=== PATIENT | male | born 1955 | race Caucasian/White ===

== ENCOUNTER 2020-04-20 07:20 | Outpatient (REF) | payer OTHER, SELFPAY ==
[2020-04-20 11:29] LABS: Hematocrit 50.7 % (42-52); Hemoglobin 17.1 g/dl (14.0-18.0); Mean Corpuscular HGB Conc 33.7 g/dl (31.0-36.0); Mean Corpuscular Hemoglobin 28.8 pg (27.0-33.0); Mean Corpuscular Volume 85.5 fL (80-98); Mean Platelet Volume 11.3 fL (9.4-12.4); Platelet Count 152 X10*3/uL (160-400); Red Blood Count 5.93 X10*6/uL (4.60-5.80); Red Cell Distribution Width 13.2 % (11.0-16.0); White Blood Count 6.5 X10*3/uL (4.8-10.8)
[2020-04-20 12:17] LABS: Prostate Specific Antigen 0.42 ng/mL (<0.05-4.0)
[2020-04-26 01:56] LABS: Testosterone, Total 350 ng/dL (250-1100)
== END 2020-04-20 07:21 | disposition home or self-care (01) ==
LOC: HO.HMGCLDS 07:20
PROVIDERS: PCP Internal Medicine; Visit Provider Urology
DX: R79.89 Other specified abnormal findings of blood chemistry (principal)
CPT/HCPCS: 36415; 84153; 84403; 85027

== ENCOUNTER → 2020-05-03 12:40 | Outpatient (BNVA) | payer OTHER, SELFPAY | PROVIDERS: PCP Internal Medicine; Referring Provider Orthopaedic Surgery; Visit Provider Urology | DX: Z76.89 Persons encountering health services in other specified circumstances (principal) ==

== ENCOUNTER 2020-06-05 07:22 | Outpatient (REF) | payer OTHER, SELFPAY ==
[2020-06-05 11:55] LABS: Alanine Aminotransferase 40 U/L (0-40); Anion Gap 16 (12-20); Aspartate Amino Transferase 26 U/L (5-37); Blood Urea Nitrogen 21 mg/dL (9-16); Calcium 9.5 mg/dL (8.4-10.2); Carbon Dioxide 23 mmol/L (22-29); Chloride 105 mmol/L (96-108); Cholesterol 149 mg/dL; Estimated Glomerular Filt Rate > 60; Glucose Fasting 172 mg/dL (60-99); HDL Cholesterol 37 mg/dL; LDL Cholesterol Calculated 71 mg/dl; Potassium 4.5 mmol/l (3.3-5.1); Sodium 139 mmol/L (135-145); Triglycerides 205 mg/dL
[2020-06-05 12:07] LABS: Creatinine Urine 77.11 mg/dL; Microalbumin Urine < 5.0 mg/L
== END 2020-06-05 07:23 | disposition home or self-care (01) ==
LOC: HO.HMGCLDS 07:22
PROVIDERS: PCP Internal Medicine; Visit Provider Internal Medicine
DX: I10 Essential (primary) hypertension (principal); E11.65 Type 2 diabetes mellitus with hyperglycemia; E78.2 Mixed hyperlipidemia
CPT/HCPCS: 80048; 80061; 82043; 84450; 84460

== ENCOUNTER 2020-10-06 07:41 | Outpatient (REF) | payer OTHER, SELFPAY ==
[2020-10-06 11:54] LABS: Estimated Average Glucose 154 mg/dL
[2020-10-06 12:05] LABS: Creatinine Urine 61.81 mg/dL; Microalbumin Urine < 5.0 mg/L
[2020-10-06 12:28] LABS: Alanine Aminotransferase 32 U/L (0-40); Anion Gap 17 (12-20); Aspartate Amino Transferase 24 U/L (5-37); Blood Urea Nitrogen 19 mg/dL (9-16); Calcium 9.5 mg/dL (8.4-10.2); Carbon Dioxide 22 mmol/L (22-29); Chloride 104 mmol/L (96-108); Cholesterol 127 mg/dL; Estimated Glomerular Filt Rate > 60; Glucose Fasting 189 mg/dL (60-99); HDL Cholesterol 30 mg/dL; LDL Cholesterol Calculated 61 mg/dl; Potassium 4.4 mmol/L (3.3-5.1); Sodium 139 mmol/L (135-145); Triglycerides 183 mg/dL
[2020-10-06 12:35] LABS: Vitamin D 25-OH Total 35.7 ng/mL (>30)
== END 2020-10-06 07:42 | disposition home or self-care (01) ==
LOC: HO.HMGCLDS 07:41
PROVIDERS: PCP Internal Medicine; Visit Provider Internal Medicine
DX: E11.9 Type 2 diabetes mellitus without complications (principal); E55.9 Vitamin D deficiency, unspecified; E78.2 Mixed hyperlipidemia; I10 Essential (primary) hypertension
CPT/HCPCS: 36415; 80048; 80061; 82043; 82306; 83036; 84450; 84460

== ENCOUNTER 2020-10-18 07:08 | Outpatient (REF) | payer OTHER, SELFPAY ==
[2020-10-18 11:44] LABS: Hematocrit 49.1 % (42-52); Hemoglobin 16.9 g/dl (14.0-18.0); Mean Corpuscular HGB Conc 34.4 g/dl (31.0-36.0); Mean Corpuscular Hemoglobin 29.5 pg (27.0-33.0); Mean Corpuscular Volume 85.8 fL (80-98); Mean Platelet Volume 11.4 fL (9.4-12.4); Platelet Count 138 X10*3/uL (160-400); Red Blood Count 5.72 X10*6/uL (4.60-5.80); Red Cell Distribution Width 13.2 % (11.0-16.0); White Blood Count 5.9 X10*3/uL (4.8-10.8)
[2020-10-18 12:31] LABS: Prostate Specific Antigen 0.53 ng/mL (<0.05-4.0)
[2020-10-29 09:56] LABS: Testosterone, Total 387 ng/dL (250-1100)
== END 2020-10-18 07:09 | disposition home or self-care (01) ==
LOC: HO.HMGCLDS 07:08
PROVIDERS: PCP Internal Medicine; Visit Provider Urology
DX: E29.1 Testicular hypofunction (principal); Z12.5 Encounter for screening for malignant neoplasm of prostate
CPT/HCPCS: 36415; 84153; 84403; 85027

== ENCOUNTER → 2020-11-02 14:14 | Outpatient (BNVA) | payer OTHER, SELFPAY | PROVIDERS: PCP Internal Medicine; Visit Provider Urology ==

== ENCOUNTER 2021-04-20 07:55 | Outpatient (REF) | payer OTHER, SELFPAY ==
[2021-04-20 12:11] LABS: Alanine Aminotransferase 39 U/L (0-40); Anion Gap 16 (12-20); Aspartate Amino Transferase 30 U/L (5-37); Blood Urea Nitrogen 16 mg/dL (9-16); Calcium 9.1 mg/dL (8.4-10.2); Carbon Dioxide 19 mmol/L (22-29); Chloride 107 mmol/L (96-108); Cholesterol 116 mg/dL; Estimated Glomerular Filt Rate > 60; Glucose Fasting 162 mg/dL (60-99); HDL Cholesterol 28 mg/dL; LDL Cholesterol Calculated 51 mg/dl; Potassium 4.5 mmol/L (3.3-5.1); Sodium 137 mmol/L (135-145); Triglycerides 188 mg/dL
[2021-04-20 12:15] LABS: Estimated Average Glucose 151 mg/dL; Hemoglobin A1c % 6.9 %
[2021-04-20 12:19] LABS: Creatinine Urine 99.72 mg/dL; Microalbumin Urine < 5.0 mg/L
== END 2021-04-20 07:56 | disposition home or self-care (01) ==
LOC: HO.HMGCLDS 07:55
PROVIDERS: PCP Internal Medicine; Visit Provider Internal Medicine
DX: E11.9 Type 2 diabetes mellitus without complications (principal); E78.2 Mixed hyperlipidemia; I10 Essential (primary) hypertension
CPT/HCPCS: 36415; 80048; 80061; 82043; 83036; 84450; 84460

== ENCOUNTER 2021-05-01 07:17 | Outpatient (REF) | payer OTHER, SELFPAY ==
[2021-05-01 12:21] LABS: Prostate Specific Antigen 0.46 ng/mL (<0.05-4.0)
[2021-05-06 15:20] LABS: Testosterone, Total 347 ng/dL (250-1100)
== END 2021-05-01 07:18 | disposition home or self-care (01) ==
LOC: HO.HMGCLDS 07:17
PROVIDERS: PCP Internal Medicine; Visit Provider Urology
DX: Z12.5 Encounter for screening for malignant neoplasm of prostate (principal); E29.1 Testicular hypofunction
CPT/HCPCS: 36415; 84153; 84403

== ENCOUNTER → 2021-05-24 08:39 | Outpatient (BNVA) | payer OTHER, SELFPAY | PROVIDERS: PCP Internal Medicine; Visit Provider Urology ==

== ENCOUNTER 2021-10-19 07:25 | Outpatient (REF) | payer OTHER, SELFPAY ==
[2021-10-19 11:31] LABS: Estimated Average Glucose 160 mg/dL; Hemoglobin A1c % 7.2 %
[2021-10-19 11:37] LABS: Alanine Aminotransferase 31 U/L (0-40); Anion Gap 13 (12-20); Aspartate Amino Transferase 21 U/L (5-37); Blood Urea Nitrogen 17 mg/dL (9-16); Calcium 9.6 mg/dL (8.4-10.2); Carbon Dioxide 23 mmol/L (22-29); Chloride 105 mmol/L (96-108); Cholesterol 126 mg/dL; Estimated Glomerular Filt Rate > 60; Glucose Fasting 172 mg/dL (60-99); HDL Cholesterol 28 mg/dL; LDL Cholesterol Calculated 64 mg/dl; Potassium 4.4 mmol/L (3.3-5.1); Sodium 137 mmol/L (135-145); Triglycerides 173 mg/dL
[2021-10-19 12:00] LABS: Creatinine Urine 96.53 mg/dL; Microalbum/Creatinine Ratio Ur 5.1 ug/mg cr
[2021-10-19 12:01] LABS: Vitamin D 25-OH Total 37.2 ng/mL (>30)
== END 2021-10-19 07:26 | disposition home or self-care (01) ==
LOC: HO.HMGCLDS 07:25
PROVIDERS: Visit Provider Internal Medicine
DX: E11.9 Type 2 diabetes mellitus without complications (principal); E78.2 Mixed hyperlipidemia; I10 Essential (primary) hypertension; Z86.39 Personal history of other endocrine, nutritional and metabolic disease
CPT/HCPCS: 36415; 80048; 80061; 82043; 82306; 83036; 84450; 84460

== ENCOUNTER 2021-11-09 07:25 | Outpatient (REF) | payer OTHER, SELFPAY ==
[2021-11-09 11:43] LABS: Hematocrit 48.9 % (42.0-52.0); Hemoglobin 16.9 g/dl (14.0-18.0); Mean Corpuscular HGB Conc 34.6 g/dl (31.0-36.0); Mean Corpuscular Hemoglobin 29.4 pg (27.0-33.0); Mean Corpuscular Volume 85.2 fL (80.0-98.0); Mean Platelet Volume 10.8 fL (9.4-12.4); Platelet Count 144 X10*3/uL (160-400); Red Blood Count 5.74 X10*6/uL (4.60-5.80); Red Cell Distribution Width 13.5 % (11.0-16.0); White Blood Count 5.6 X10*3/uL (4.8-10.8)
[2021-11-09 12:15] LABS: Prostate Specific Antigen 0.46 ng/mL (<0.05-4.0)
[2021-11-13 19:12] LABS: Testosterone, Total 302 ng/dL (250-1100)
== END 2021-11-09 07:26 | disposition home or self-care (01) ==
LOC: HO.HMGCLDS 07:25
PROVIDERS: PCP Internal Medicine; Visit Provider Urology
DX: Z12.5 Encounter for screening for malignant neoplasm of prostate (principal); E29.1 Testicular hypofunction; N13.8 Other obstructive and reflux uropathy; N40.1 Benign prostatic hyperplasia with lower urinary tract symptoms
CPT/HCPCS: 36415; 84153; 84403; 85027

== ENCOUNTER 2022-04-30 07:14 | Outpatient (REF) | payer OTHER, SELFPAY ==
[2022-04-30 12:01] LABS: Hematocrit 50.1 % (42.0-52.0)
[2022-04-30 12:17] LABS: Estimated Average Glucose 148 mg/dL; Hemoglobin A1c % 6.8 %
[2022-04-30 13:02] LABS: Alanine Aminotransferase 31 U/L (0-40); Anion Gap 14 (12-20); Aspartate Amino Transferase 22 U/L (5-37); Blood Urea Nitrogen 16 mg/dL (9-16); Calcium 9.6 mg/dL (8.4-10.2); Carbon Dioxide 25 mmol/L (22-29); Chloride 105 mmol/L (96-108); Cholesterol 129 mg/dL; Estimated Glomerular Filt Rate > 60; Glucose Fasting 161 mg/dL (60-99); HDL Cholesterol 30 mg/dL; LDL Cholesterol Calculated 68 mg/dl; Potassium 4.3 mmol/L (3.3-5.1); Sodium 140 mmol/L (135-145); Triglycerides 159 mg/dL
[2022-05-06 13:06] LABS: Testosterone, Total 396 ng/dL (250-1100)
== END 2022-04-30 07:15 | disposition home or self-care (01) ==
LOC: HO.HMGCLDS 07:14
PROVIDERS: Absent Provider Urology; PCP Internal Medicine; Visit Provider Internal Medicine
DX: Z12.5 Encounter for screening for malignant neoplasm of prostate (principal); E29.1 Testicular hypofunction; E11.65 Type 2 diabetes mellitus with hyperglycemia; I10 Essential (primary) hypertension
CPT/HCPCS: 36415; 80048; 80061; 83036; 84153; 84403; 84450; 84460; 85014

== ENCOUNTER 2022-09-02 07:19 | Outpatient (REF) | payer OTHER, SELFPAY ==
[2022-09-02 11:27] LABS: MANUAL DIFF FLAG NO
[2022-09-02 11:37] LABS: Basophils Percent Auto 0.3 % (0-2); Eosinophils Absolute Auto 0.3 X10*3/uL (0.0-0.4); Eosinophils Percent Auto 4.7 % (0-4); Hematocrit 50.1 % (42.0-52.0); Hemoglobin 17.4 g/dl (14.0-18.0); Imm Gran Abs Auto 0.03 X10*3/uL (0.00-0.03); Imm Gran Pct Auto 0.4 % (0.0-0.4); Lymphocytes Absolute Auto 1.8 X10*3/uL (1.2-4.9); Mean Corpuscular HGB Conc 34.7 g/dl (31.0-36.0); Mean Corpuscular Hemoglobin 29.7 pg (27.0-33.0); Mean Corpuscular Volume 85.5 fL (80.0-98.0); Mean Platelet Volume 11.4 fL (9.4-12.4); Monocytes Absolute Auto 0.5 X10*3/uL (0.1-1.2); Monocytes Percent Auto 6.9 % (2-11); Neutrophils Absolute Auto 4.1 x10*3/uL (2.0-8.3); Neutrophils Percent Auto 60.7 % (45-73); Platelet Count 162 X10*3/uL (160-400); Red Blood Count 5.86 X10*6/uL (4.60-5.80); White Blood Count 6.8 X10*3/uL (4.8-10.8)
[2022-09-02 12:26] LABS: Estimated Average Glucose 160 mg/dL; Hemoglobin A1c % 7.2 %
[2022-09-02 12:42] LABS: Alanine Aminotransferase 34 U/L (0-40); Anion Gap 14 (12-20); Aspartate Amino Transferase 24 U/L (5-37); Blood Urea Nitrogen 17 mg/dL (9-16); Calcium 9.4 mg/dL (8.4-10.2); Carbon Dioxide 24 mmol/L (22-29); Chloride 105 mmol/L (96-108); Cholesterol 129 mg/dL; Estimated Glomerular Filt Rate > 60; Glucose Fasting 184 mg/dL (60-99); HDL Cholesterol 31 mg/dL; LDL Cholesterol Calculated 67 mg/dl; Potassium 4.4 mmol/L (3.3-5.1); Sodium 139 mmol/L (135-145); Triglycerides 157 mg/dL
[2022-09-02 12:59] LABS: Uric Acid 4.6 mg/dL (3.4-7.0)
[2022-09-02 13:06] LABS: Vitamin D 25-OH Total 39.5 ng/mL (>30)
== END 2022-09-02 07:20 | disposition home or self-care (01) ==
LOC: HO.HMGCLDS 07:19
PROVIDERS: PCP Internal Medicine; Visit Provider Internal Medicine
DX: E11.9 Type 2 diabetes mellitus without complications (principal); E78.2 Mixed hyperlipidemia; I10 Essential (primary) hypertension; M15.9 Polyosteoarthritis, unspecified; M1A.9XX0 Chronic gout, unspecified, without tophus (tophi)
CPT/HCPCS: 36415; 80048; 80061; 82306; 83036; 84450; 84460; 84550; 85025

== ENCOUNTER 2022-10-08 09:37 | Outpatient (REF) | payer OTHER, SELFPAY ==
--- NOTE | ~2022-10-08 | XR_ITS ---
EXAMINATION: XR SHOULDER, RIGHT CLINICAL INFORMATION: Right shoulder pain. COMPARISON: None available. TECHNIQUE: Three views of the right shoulder. FINDINGS: The bones and soft tissues are normal. No fracture. Glenohumeral and acromioclavicular alignment is anatomic with normal joint space. No abnormal soft tissue calcifications. XR/XR shoulder RT min 2V IMPRESSION: Unremarkable right shoulder.
== END 2022-10-08 09:38 | disposition home or self-care (01) ==
LOC: HO.HMGCX 09:37
PROVIDERS: PCP Internal Medicine; Visit Provider Nurse Practitioner Family
DX: M25.511 Pain in right shoulder (principal)
CPT/HCPCS: 73030

== ENCOUNTER → 2022-11-15 07:51 | Outpatient (BNVA) | payer OTHER, SELFPAY | PROVIDERS: PCP Internal Medicine; Visit Provider Physician Assistant | DX: M75.81 Other shoulder lesions, right shoulder (principal); M19.019 Primary osteoarthritis, unspecified shoulder | CPT/HCPCS: 20610; J1040 ==

== ENCOUNTER 2022-12-03 09:57 | Outpatient (RCR) | payer OTHER, SELFPAY ==
--- NOTE | 2022-12-03 11:25 | MHC.PT.EP ---
[facility] [place] Office [place] Office [place] Office [address] Herminia Vargas [address] [phone] F: [phone] F: [phone] F: [phone] F: [phone] Physical Therapy Plan of Care Date of Evaluation: Date of Surgery: Diagnosis: This is a 67 yo male presenting to skilled PT with a script for tendinitis of R rotator cuff. Assessment: This is a 67 yo male presenting to skilled PT with a script for tendinitis of R rotator cuff. Patient presents today for an evaluation of right shoulder pain after falling on a concrete floor landing on right shoulder around September. He went to the walk-in clinic a month late as pain was getting worse and was referred for x-ray and [facility] ortho. At his ortho assessment he had an injection on 11/15 in the office and is feeling much better. Plan is to trial PT and if symptoms don't improve, return to their office for MRI. Prior to the injection he was having a constant ache and at times shooting pain that radiates down his arm. He also reported clicking and pain with ROM. His pain was worse at night, with lifting or reaching, and with work related tasks (worked in [employer] business). At the time of PT eval, he is feeling much better, he is here today to ask questions about strengthening exercises and HEP. He does experience some weakness still. Denies any numbness or tingling, neck pain or radiating symptoms now. Assessment reveals pain that ranges from 0-1/10 now. Patient demos mildly decreased shoulder ROM, decreased strength of RTC muscles and scapular stabilizers, elevated UT and TTP at bicipital groove and UT. He is overall feeling much better and would like an HEP to continue on his own at home. Based on functional limitations, impaired QOL and pain tolerance patient is a good candidate for skilled PT 2x/wk for 4wks as needed/if needed. 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 Manual therapy to restore motion and function. Therapeutic exercise to improve strength and flexibility. Neuromuscular re-education for posture and balance. Therapeutic activities to return to functional activities of daily living. Electronically signed by: Valerie Zelaya PT Please sign and return to therapist. Thank you for your referral.
--- NOTE | 2023-01-17 14:20 | MHC.PT.DC ---
[facility] [place] Office [place] Office [place] Office [address] Herminia Vargas [address] [phone] F: [phone] F: [phone] F: [phone] F: [phone] Physical Therapy Discharge Report Diagnosis: This is a 67 yo male presenting to skilled PT with a script for tendinitis of R rotator cuff. Date of Surgery: Date of Evaluation: 12/03/22 Date of Discharge: 01/17/23 Treatments to Date: 1 Cancellations to Date: 0 No Shows to Date: 0 Discharge Status: Achieved Goals Improved Function Independent with HEP Patient Elected to Stop Discharge Summary: This is a 67 yo male presenting to skilled PT with a script for tendinitis of R rotator cuff. Patient presents today for an evaluation of right shoulder pain after falling on a concrete floor landing on right shoulder around September. He went to the walk-in clinic a month late as pain was getting worse and was referred for x-ray and [facility] ortho. At his ortho assessment he had an injection on 11/15 in the office and is feeling much better. Plan is to trial PT and if symptoms don't improve, return to their office for MRI. Prior to the injection he was having a constant ache and at times shooting pain that radiates down his arm. He also reported clicking and pain with ROM. His pain was worse at night, with lifting or reaching, and with work related tasks (worked in [employer] business). At the time of PT eval, he is feeling much better, he is here today to ask questions about strengthening exercises and HEP. He does experience some weakness still. Denies any numbness or tingling, neck pain or radiating symptoms now. Assessment reveals pain that ranges from 0-1/10 now. Patient demos mildly decreased shoulder ROM, decreased strength of RTC muscles and scapular stabilizers, elevated UT and TTP at bicipital groove and UT. He is overall feeling much better and would like an HEP to continue on his own at home. Based on functional limitations, impaired QOL and pain tolerance patient is a good candidate for skilled PT 2x/wk for 4wks as needed/if needed. Electronically signed by: Valerie Zelaya, PT Please sign and return to therapist. Thank you for your referral.
== END 2023-01-17 14:20 | disposition home or self-care (01) ==
LOC: HO.PTCHIC 09:57
PROVIDERS: PCP Internal Medicine; Visit Provider Physician Assistant
DX: M75.81 Other shoulder lesions, right shoulder (principal); M19.011 Primary osteoarthritis, right shoulder
CPT/HCPCS: 97110; 97161; 97162

== ENCOUNTER 2022-12-16 07:20 | Outpatient (REF) | payer OTHER, SELFPAY ==
[2022-12-21 15:33] LABS: Testosterone, Total 327 ng/dL (250-1100)
== END 2022-12-16 07:21 | disposition home or self-care (01) ==
LOC: HO.HMGCLDS 07:20
PROVIDERS: PCP Internal Medicine; Visit Provider Urology
DX: R29.1 Meningismus (principal); Z12.5 Encounter for screening for malignant neoplasm of prostate
CPT/HCPCS: 36415; 84153; 84403; 85027

== ENCOUNTER 2023-01-14 11:20 | Outpatient (AMB) | payer OTHER, SELFPAY ==
--- NOTE | 2023-01-14 11:21 | MHC.OFFVIS ---
Intake Intake Visit Reasons: 6M CBC/PSA/TESTO(SET) Intake Note: Patient is present for Telephone LABS Urology Med: Tadalafil, Testosterone Antibiotic Allergy: Blood Thinner: None Pharmacy: [facility] Allergies No Known Allergies [No Known Allergies*] Allergy (Verified 01/14/23 11:23) Medication List - Last Reconciled 01/14/23 by Marek Lopez MD allopurinol 300 mg PO DAILY cholecalciferol (vitamin D3) 50 mcg PO DAILY diclofenac sodium 75 mg PO DAILY PRN empagliflozin (Jardiance) 10 mg PO DAILY glyburide 10 mg (2 x 5 mg) PO BID 90 days lisinopril 20 mg PO DAILY metformin 1,000 mg PO BID 3 months methocarbamol 750 mg PO Q8H PRN rosuvastatin 5 mg PO Q OTHER DAY syringe with needle, safety (Monoject TB Safety Syringe) As directed tadalafil 10 mg PO DAILY 90 days testosterone cypionate (Depo-Testosterone) 80 mg (0.4 mL) subcut QWEEK 4 weeks HPI HPI Comments History of Present Illness Details Doni is a very pleasant male. He is seen for the following urologic conditions - erectile dysfunction in setting of diabetes - hypogonadism Telemedicine evaluation 15 minute consultation [facility] shannan Video Lab work stable Primary issue is erectile dysfunction Will maximize of medications with 10 mg daily tadalafil and 20 mg p.r.n. demand 6 month follow-up Hypogonadism: He presents today for further evaluation and followup of his hypogonadism - Current therapy 0.4 cc subcutaneous weekly Fri injection/Lab Friday Initial symptoms include erectile dysfunction Yes decreased libido Yes The onset of symptoms has been gradual. Associate conditions include obstructive sleep apnea No CAD No diabetes Yes dyslipidemia Yes hypertension Yes Laboratory results 11/25 , baseline T 200 Free T 44 12/25 T 207, FSH 8.6, 02/25 T 130, 05/27 T 175, 09/27 T 387, PSA 0.6, 04/29 T 350 P 0.5, 11/28 T 300 0.46 48, 04/30 396 0.8, 12/29 327 0.58 47 - HBA1c - 08/29 7.2% Therapeutic plan 6 month follow-up Erectile dysfunction: Increased to 10 mg daily with a escalating dose on demand Symptoms have been present for/since gradual since 2016. Current treatment includes 10 mg daily Cialis plus Cialis 20 mg Treatment side effects include none. Prior therapies include oral medications. At this time he experiences erections are partial and adequate for vaginal penetration, that undergo rapid detumesence after penetration, BARI 8-11 Moderate ED. Nocturnal erections do not occur. Currently they are in a stable relationship. Associated problems hypertension Yes diabetes Yes dyslipidemia Yes Overall he is not satisfied with the current management. Therapeutic plan includes Escalating oral doses PFSH Medical History Essential hypertension History of gout Mixed dyslipidemia Osteoarthritis involving multiple joints on both sides of body Type 2 diabetes mellitus without complication, without long-term current use of insulin Surgical History History of carpal tunnel release Hx of total knee replacement Family History Father No problems noted. Mother No problems noted. Sister Cervical cancer Uterine cancer Hypothyroidism Social History Housing: House Alcohol intake: current Patient Tobacco Use Status: Never used Tobacco e-Cigarette/Vaping Use: Never Used service: No Current occupational status: employed Current occupation: [employer], left hand dominant Cognitive needs: No Hearing needs: No Vision needs: Yes Review of Systems Const All systems reviewed & are unremarkable except as noted in HPI and below Reports no additional complaints Resp Reports no additional complaints GI Reports no additional complaints Reports as per HPI Musc Reports no additional complaints Physical Exam Telemedicine evaluation Appropriate responses Regular breathing rate and rhythm HEENT Head: Yes normal to inspection Ears: hearing grossly normal bilaterally Eyes General: appearance normal, both eyes and all related structures Neck Neck: Yes normal visual inspection Chest Chest palpation & inspection: normal inspection of the chest Resp Effort & Inspection: normal respiratory effort and able to speak in complete sentences Assessment & Plan Assessment & Plan (1) Erectile dysfunction associated with type 2 diabetes mellitus: Code(s): E11.69 - Type 2 diabetes mellitus with other specified complication; N52.1 - Erectile dysfunction due to diseases classified elsewhere (2) Hypogonadism in male: Code(s): E29.1 - Testicular hypofunction Plan Six month follow-up Orders: Orders Prostate Specific Antigen 6 Months E29.1 - Testicular hypofunction Testosterone, Total 6 Months E29.1 - Testicular hypofunction Complete Blood Count no Diff 6 Months E29.1 - Testicular hypofunction Patient Instructions: Imaging studies, laboratory and physical exam results were discussed and reviewed in detail. No major barriers to patient understanding were identified. An opportunity to ask questions regarding the treatment plan was provided. All questions were answered. The patient expressed understanding and agreement with the above treatment plan. The patient is aware they should contact our office by phone for worsening of their current condition or the appearance of new urologic symptoms. Compliance is encouraged with any medications and followup testing that is ordered. It is a privilege to participate in the urologic care of your patient. If you have any questions or concerns regarding treatment for the above conditions, or other urologic issues, please do not hesitate to contact me. The office telephone contact is [phone]. This note is constructed using voice recognition software. While every effort has been made to ensure accuracy bowl turner errors may have been included. Yours sincerely, Dr Marek Lopez MD, [facility] - Urology Providers of Expert, Compassionate Care for the Genitourinary System Telehealth Telehealth Location of provider rendering services: practice address Location of patient: address on file Patient Identification confirmed using: Name, : Yes Telehealth method: video Patient verbally consented to treatment: Yes Patient verbally consented to billing insurance company: Yes Patient informed of any privacy concerns related to visit: Yes Coding Level of Care Code Tele Est Pt Level 4 (95707) Diagnoses Erectile dysfunction associated with type 2 diabetes mellitus E11.69; N52.1 Hypogonadism in male E29.1
== END 2023-01-14 11:46 | disposition home or self-care (01) ==
LOC: HO.HUSH 11:21
PROVIDERS: PCP Internal Medicine; Visit Provider Urology
DX: E11.69 Type 2 diabetes mellitus with other specified complication (principal); N52.1 Erectile dysfunction due to diseases classified elsewhere; E29.1 Testicular hypofunction
CPT/HCPCS: 99214

== ENCOUNTER → 2023-01-14 11:20 | Outpatient (BNVA) | payer OTHER, SELFPAY | PROVIDERS: PCP Internal Medicine; Visit Provider Urology ==

== ENCOUNTER 2023-02-12 18:45 | Outpatient (REF) | payer OTHER, SELFPAY ==
--- NOTE | ~2023-02-12 | MR_ITS ---
EXAMINATION: MR SHOULDER WITHOUT CONTRAST, RIGHT CLINICAL INFORMATION: Right shoulder pain. COMPARISON: Radiographs 10/08/2022. TECHNIQUE: MRI of the shoulder without contrast was performed on a high-field scanner. FINDINGS: ROTATOR CUFF: The supraspinatus and infraspinatus tendons are completely torn and retracted to the level of the glenoid. Subscapularis tendinopathy with ill-defined undersurface partial tearing. Moderate atrophy and mild fatty infiltration of the supraspinatus and infraspinatus muscles. BICEPS: Proximal biceps tendinopathy with ill-defined longitudinal partial tearing. The tendon is partially subluxed out of the bicipital groove, draped over the lesser tuberosity. CORACOACROMIAL ARCH: The undersurface of the acromion is curved with no subacromial spur. Moderate acromioclavicular osteoarthritis. LABRUM/CAPSULE: The anterior labrum appears degenerated/frayed. The labrum is otherwise unremarkable. GLENOHUMERAL JOINT/MARROW: The humeral head is superiorly subluxed and abuts the undersurface of the acromion. There are areas of mild cartilage thinning of the humeral head and superior glenoid, and there are small osteophytes along the greater tuberosity. Moderate joint effusion. There is a loose body in the biceps tendon sheath. MR/MR shoulder RT wo con IMPRESSION: 1. Completely torn and retracted supraspinatus and infraspinatus tendons with moderate muscle atrophy and mild fatty infiltration. The humeral head is superiorly subluxed and abuts the undersurface of the acromion. 2. Subscapularis tendinopathy with mild ill-defined undersurface partial tearing. 3. Proximal biceps tendinopathy with ill-defined longitudinal partial tearing. The tendon is partially subluxed out of the bicipital groove. 4. Moderate acromioclavicular and mild glenohumeral osteoarthritis.
== END 2023-02-12 18:46 | disposition home or self-care (01) ==
LOC: HO.MRI 18:45
PROVIDERS: PCP Internal Medicine; Visit Provider Physician Assistant
DX: M75.81 Other shoulder lesions, right shoulder (principal); M19.011 Primary osteoarthritis, right shoulder
CPT/HCPCS: 73221

== ENCOUNTER 2023-02-19 07:25 | Outpatient (REF) | payer OTHER, SELFPAY ==
[2023-02-19 12:12] LABS: Estimated Average Glucose 146 mg/dL; Hemoglobin A1c % 6.7 % (<6.0)
[2023-02-19 12:25] LABS: Alanine Aminotransferase 37 U/L (0-40); Anion Gap 15 (12-20); Aspartate Amino Transferase 24 U/L (5-37); Blood Urea Nitrogen 14 mg/dL (9-16); Calcium 9.8 mg/dL (8.4-10.2); Carbon Dioxide 23 mmol/L (22-29); Chloride 104 mmol/L (96-108); Cholesterol 125 mg/dL (<200); Estimated Glomerular Filt Rate > 60; Glucose Fasting 188 mg/dL (60-99); HDL Cholesterol 28 mg/dL (>40); LDL Cholesterol Calculated 32 mg/dL (<100); Potassium 4.5 mmol/L (3.3-5.1); Sodium 137 mmol/L (135-145); Triglycerides 328 mg/dL (<150)
== END 2023-02-19 07:26 | disposition home or self-care (01) ==
LOC: HO.HMGCLDS 07:25
PROVIDERS: PCP Internal Medicine; Visit Provider Internal Medicine
DX: E11.9 Type 2 diabetes mellitus without complications (principal); E78.2 Mixed hyperlipidemia; I10 Essential (primary) hypertension
CPT/HCPCS: 36415; 80048; 80061; 83036; 84450; 84460

== ENCOUNTER 2023-02-26 12:15 | Outpatient (AMB) | payer OTHER, SELFPAY ==
[2023-02-26 12:25] VITALS: BMI 30.1
--- NOTE | 2023-02-26 12:25 | MHC.OFFVIS ---
Intake Vital Signs 02/26/23 12:25 Height 5 ft 11 in Weight 216 lb BMI 30.1 Intake Visit Reasons: OV- MRI review RT Shoulder Intake Note: Doni a 67 year old male who presents today for an MRI review of right shoulder. Patient reports no change in his symptoms. Allergies No Known Allergies [No Known Allergies*] Allergy (Verified 02/26/23 12:27) HPI OV- MRI review RT Shoulder HPI Details 67-year-old male who returns to the office today for an MRI review of right shoulder. She continues to have pain in her right shoulder. The pain has caused significant limitations in activities and he has also lost the ability to raise the arm up or behind his back. [facility] Medical History Essential hypertension History of gout Mixed dyslipidemia Osteoarthritis involving multiple joints on both sides of body Type 2 diabetes mellitus without complication, without long-term current use of insulin Surgical History History of carpal tunnel release Hx of total knee replacement Family History Father No problems noted. Mother No problems noted. Sister Cervical cancer Uterine cancer Hypothyroidism Social History Housing: House Alcohol intake: current Patient Tobacco Use Status: Never used Tobacco e-Cigarette/Vaping Use: Never Used service: No Current occupational status: employed Current occupation: [employer], left hand dominant Cognitive needs: No Hearing needs: No Vision needs: Yes Review of Systems Const All systems reviewed & are unremarkable except as noted in HPI and below Physical Exam Vital Signs: BMI result Body Mass Index 30.1 Const General: cooperative, healthy appearing, comfortable, no acute distress, well developed and alert Orientation/consciousness: patient oriented x3 HEENT Head: Yes normal to inspection, Yes normocephalic and Yes atraumatic Eyes General: appearance normal, both eyes and all related structures Resp Effort & Inspection: normal respiratory effort and able to speak in complete sentences Cardio Rate: regular rate Peripheral pulses: Peripheral pulses 2+ throughout GI Palpation (GI): Soft to palpation Skin Lesions: no lesions Rashes: no rashes Neuro General: patient oriented x3 Extrem Other: Right shoulder normal to inspection. Forward flexion to 85, external rotation to 90, internal rotation to Back pocket. He is able to activate RTC strength on exam, however there is slight weakness on the right when compared to the contralateral side. Positive Betts. NVI. Results Reviewed Results Reviewed: MR shoulder RT wo con IMPRESSION: 1. Completely torn and retracted supraspinatus and infraspinatus tendons with moderate muscle atrophy and mild fatty infiltration. The humeral head is superiorly subluxed and abuts the undersurface of the acromion. 2. Subscapularis tendinopathy with mild ill-defined undersurface partial tearing. 3. Proximal biceps tendinopathy with ill-defined longitudinal partial tearing. The tendon is partially subluxed out of the bicipital groove. 4. Moderate acromioclavicular and mild glenohumeral osteoarthritis. Assessment & Plan Assessment & Plan (1) Rotator cuff arthropathy of right shoulder: Code(s): M12.811 - Other specific arthropathies, not elsewhere classified, right shoulder Plan We had a lengthy discussion about the extent of his osteoarthritis and options available which include surgical intervention. He is interested in pursuing Total shoulder arthroplasty to improve his functional capacity and daily activities. I explained to him the procedure in detail, the hospital stays and details about post op rehab and precautions. He does understand all this and would like to move forward with reverse Right total shoulder arthroplasty with Dr Forde. All questions were answered. A Preoperative CT scan with tournier protocol has been ordered. Orders: Orders CT shoulder RT wo IV con 02/26/23 M12.819 - Other specific arthropathies, not elsewhere classified, unspecified shoulder Medications: New celecoxib (Celebrex) 200 mg PO BID 30 days 60 caps 3RF Patient Instructions: Scribed for Alva Franklin PA-C, by Gideon Herrera medical/surgery registered nurse, on 02/26/2023 at 12:30 PM Alva LANG PA-C, have personally reviewed and agree with the information entered by the scribe. Coding Level of Care Code Est Pt Level 3 (30785) Diagnoses Rotator cuff arthropathy of right shoulder M12.811
== END 2023-02-26 13:30 | disposition home or self-care (01) ==
PROVIDERS: PCP Internal Medicine; Visit Provider Physician Assistant
DX: M12.811 Other specific arthropathies, not elsewhere classified, right shoulder (principal)
CPT/HCPCS: 99214

== ENCOUNTER → 2023-02-26 12:15 | Outpatient (BNVA) | payer OTHER, SELFPAY | PROVIDERS: PCP Internal Medicine; Visit Provider Physician Assistant ==

== ENCOUNTER 2023-03-03 11:28 | Outpatient (AMB) | payer OTHER, SELFPAY ==
[2023-03-03 12:21] VITALS: BP 140/92; PULSE 89; O2SAT 98; BMI 30.6
--- NOTE | 2023-03-03 12:21 | A.OFFPC_ITS ---
Vital Signs 03/03/23 12:21 Height 5 ft 11 in Weight 219 lb 4 oz BMI 30.6 BP 140/92 H Blood Pressure Location Lt brachial Position Sitting Pulse 89 Pulse Source Pulse Oximeter Pulse Oximetry (%) 98 Oxygen Delivery Method Room Air Intake Visit Reasons: 6m DM, lipids,HTN Intake Note: Patient is here today for 6 month follow up DM, Lipids, HTN/ Pre OP. Allergies No Known Allergies [No Known Allergies*] Allergy (Verified 05/09/23 00:48) Medication List - Last Reconciled 05/09/23 by Frida Gage MD allopurinol 300 mg PO DAILY celecoxib (Celebrex) 200 mg PO BID 30 days cholecalciferol (vitamin D3) 50 mcg PO DAILY empagliflozin (Jardiance) 10 mg PO DAILY glyburide 10 mg (2 x 5 mg) PO BID 90 days lisinopril 20 mg PO DAILY metformin 1,000 mg PO BID 3 months rosuvastatin 5 mg PO Q OTHER DAY syringe with needle, safety (Monoject TB Safety Syringe) As directed tadalafil 10 mg PO DAILY 90 days testosterone cypionate (Depo-Testosterone) 80 mg (0.4 mL) subcut QWEEK 4 weeks Tobacco use date assessed: 03/03/23 Fall risk assessment: 1 Fall in past year Last assessed Fall Risk: 03/03/23 Dental Screening Dental Screen Date: 03/03/23 Did you have a dental visit in the last 12 months?: Yes Did you have a dental problem in the last 6 months where you did not have access to dental care?: No Was dental information given to patient?: Patient has dentist HPI 6m DM, lipids,HTN HPI Details 67-year-old male with diabetes mellitus, hypertension, mixed dyslipidemia with history of gout, here today for his follow-up. He is also scheduled for right rotator cuff repair scheduled for next month. He has been feeling well, compliant with taking his medications as directed, with no complaints at present time. Latest fasting labs showed normal electrolytes, CBC, with hemoglobin A1c at 6.7% and fasting lipids showing normal LDL cholesterol but triglycerides remain elevated [facility] Medical History History of gout Essential hypertension Osteoarthritis involving multiple joints on both sides of body Mixed dyslipidemia Type 2 diabetes mellitus without complication, without long-term current use of insulin Surgical History History of carpal tunnel release Hx of total knee replacement Family History Father No problems noted. Mother No problems noted. Sister Cervical cancer Uterine cancer Hypothyroidism Social History Housing: House Alcohol intake: current Patient Tobacco Use Status: Never used Tobacco e-Cigarette/Vaping Use: Never Used service: No Current occupational status: employed Current occupation: [employer], left hand dominant Cognitive needs: No Hearing needs: No Vision needs: Yes Questionnaire PHQ-9 Over the last 2 weeks, how often have you been bothered by any of the following problems? Depression Screening Interpretation: Negative Source: Developed by Drs. Jorge A Vasquez, Nolvia Betts, Shar Cornejo and colleagues, with an educational carlos from [employer]. Thrive Questionnaire Date Thrive assessed: 05/06/22 AUDIT C Alcohol Use Questionnaire (AUDIT-C) 1. How often do you have a drink containing alcohol?: Monthly or less 2. How many drinks containing alcohol do you have on a typical day when you are drinking?: 1 or 2 3. How often do you have six or more drinks on one occasion?: Never Total Score: 1 Score Reviewed/Action Taken: Yes JUAN MIGUEL-7 AMB Questionnaire JUAN MIGUEL-7 Date JUAN MIGUEL - 7 assessed: 09/05/22 Source: Developed by Drs. Jorge A Vasquez, Nolvia Betts, Shar Cornejo and colleagues, with an educational carlos from [employer]. Review of Systems Const Denies body aches, Denies fatigue, Denies fever(s), Denies headache(s) and Denies weakness Eyes Details: Sees Dr. Nielsen Denies change in vision ENT Reports Normal hearing present, Denies dizziness, Denies headache(s), Denies nasal congestion, Denies nasal discharge and Denies sore throat Card Denies chest pain, Denies lightheadedness, Denies palpitations and Denies dyspnea Resp Denies chest congestion, Denies cough, Denies dyspnea and Denies wheezing GI Denies abdominal pain, Denies change in bowel habits and Denies heartburn Denies dysuria and Denies urinary frequency Musc Details: Recurrent pain and stiffness in shoulder, hips and over MCP joint in both hands Skin/Breast Denies lesions and Denies rash Neuro Reports Normal hearing present, Denies dizziness, Denies headache(s), Denies Sensory deficit (Neuro) and Denies weakness Psych Reports no additional complaints Endo Denies fatigue, Denies polydipsia, Denies polyuria and Denies palpitations Lei/Lymph Denies easy bruising Aller/Immun Denies seasonal rhinorrhea and Denies wheezing Physical exam (Primary Care) Vital Signs: Last Vital Signs Pulse 89 03/03/23 12:21 BP 140/92 H 03/03/23 12:21 Pulse Ox 98 03/03/23 12:21 Oxygen Delivery Method Room Air 03/03/23 12:21 BMI result Body Mass Index 30.6 Tobacco/Smoking Status: Tobacco use Status Tobacco use date assessed 03/03/23 03/03/23 12:27 Patient Tobacco Use Status Never used Tobacco 03/03/23 12:27 e-Cigarette/Vaping Use Never Used 03/03/23 12:27 Depression Screening Interpretation: Negative Thrive Assessment: Date of Thrive Assessment Date Thrive assessed 05/06/22 03/03/23 12:27 Const General: no acute distress and alert Orientation/consciousness: patient oriented x3 HENMT Head: Yes normal to inspection Ears: external ears normal, TM's normal bilaterally and EAC's normal General nose exam: No nasal discharge present Face and sinus: Yes normal facial exam and Yes face symmetric Mouth: moist mucous membranes Eyes General: appearance normal, both eyes and all related structures Neck Neck: Yes full ROM and Yes no lymphadenopathy Thyroid: Thyroid normal Resp Effort & Inspection: normal respiratory effort and able to speak in complete sentences Auscultation: clear to auscultation bilaterally Cardio Rate: regular rate Rhythm: regular rhythm Heart sounds: S1 normal heart sound present and S2 normal heart sound present GI Inspection: Yes normal to inspection Palpation (GI): Soft to palpation Auscultation: normal bowel sounds General: Yes no CVA tenderness Back/Spine/Pelvis Back: no CVA tenderness and No back tenderness Skin General skin exam: no rashes or lesions noted Neuro General: patient oriented x3, gait normal, moves all extremities, no focal motor deficits and CN's II-XI intact bilaterally Cranial nerves: Yes Normal hearing present Cognition (Neuro): normal cognition Gait exam (Neuro): Normal gait present Sensory Exam: No Sensory deficit (Neuro) Extrem Other: Decreased range of motion right shoulder joint due to pain stiffness General: Yes normal to inspection, Yes no pedal edema and Yes normal gait Results Reviewed Results Reviewed: ENTERED: 03/03/[address] [facility] [address]: Kike Forde MD ORDERED: CBC Auto Diff Test Result Flag Reference Site WBC 6.6 4.8-10.8 X10*3/uL RBC 5.97 H 4.60-5.80 X10*6/uL HGB 17.4 14.0-18.0 g/dl HCT 50.6 42.0-52.0 % MCV 84.8 80.0-98.0 fL MCH 29.1 27.0-33.0 pg MCHC 34.4 31.0-36.0 g/dl RDW 13.1 11.0-16.0 % PLT 150 L 160-400 X10*3/uL Name: Doni Barnes Age/Sex: 67/M : 1955 Unit#: [id number] Attend Dr: Frida Gage MD Re02/19/23 Status: DEP REF Location: [facility] Disch: SPEC : [id number] LAUREN: 02/19/23 STATUS: COMP REQ : [id number] RECD: 02/19/[address]: Frida Gage MD COMP: 02/19/235 ENTERED: 02/19/[address] [facility] [address]: ORDERED: Met Prof Fast, AST, ALT, Lipid Panel Test Result Flag Reference Site Sodium 137 135-145 mmol/L Potassium 4.5 3.3-5.1 mmol/L CL 104 96-108 mmol/L CO2 23 22-29 mmol/L Gap 15 12-20 BUN 14 9-16 mg/dL Creat 1.05 0.5-1.4 mg/dL EGFR > 60 NOTE: For -[place] individuals, multiply the result by 1.210. Chronic Kidney Disease: Estimated GFR < 60 mL/min/1.73m2 Severe Kidney Disease: Estimated GFR < 15 mL/min/1.73m2 FBS 188 H 60-99 mg/dL A fasting glucose of 126 mg/dl or greater on more than one occasion is considered diagnostic of diabetes. CA 9.8 8.4-10.2 mg/dL AST (GOT) 24 5-37 U/L ALT (GPT) 37 0-40 U/L Triglyceride 328 H <150 mg/dL Desirable Triglyceride: less than 150 mg/dL Borderline High Triglyceride 150-199 mg/dL High Triglyceride: 200-499 mg/dL Very High Triglyceride: greater than or equal to 5OO mg/dL Cholesterol 125 <200 mg/dL Desirable Cholesterol: less than 200 mg/dL Borderline High Cholesterol: 200-239 mg/dL High Cholesterol: greater than 239 mg/dL LDL Calculated 32 <100 mg/dL Desirable LDL: less than 100 mg/dL Near Optimal/Above Optimal LDL: 110-129 mg/dL Borderline High LDL: 130-159 mg/dL High LDL: 160-189 mg/dL Very High LDL: greater than or equal to 190 mg/dL HDL 28 L >40 mg/dL Desirable HDL: greater than 40 mg/dL Note: This HDL assay may give artificially low results in patients with liver disease. Laboratory Tests 02/19/23 07:30 Estimat Average Glucose 146 Hemoglobin A1c % 6.7 H Assessment and Plan Assessment & Plan (1) Type 2 diabetes mellitus without complication, without long-term current use of insulin: Code(s): E11.9 - Type 2 diabetes mellitus without complications Plan: Recent lab results reviewed with patient, with sugar and hemoglobin A1c stable . Continue with metformin 1000 mg 1 tablet twice a day and empagliflozin 10 mg daily in a.m. in addition to glyburide 10 mg 1 tablet twice a day with meals. Reinforced diabetic diet and regular exercise with patient. Counseled regarding importance of yearly diabetes retinopathy screening, sees Dr. James. Patient advised to inspect feet daily, for any signs of injury, callus or infection. Compliance with diet and regular exercise again stressed. Blood pressure goal is less than 130/80, goal LDL is less than 100 and goal hemoglobin A1c is less than 7% follow-up appointment made in-3--months, after fasting labs done. (2) Mixed dyslipidemia: Code(s): E78.2 - Mixed hyperlipidemia Plan: Reviewed recent fasting lipid profile with patient with LDL at goal, but triglycerides elevated and HDL cholesterol remains low . Continue with rosuvastatin 5 mg every other day , in addition to adherence to low- cholesterol diet and regular exercise, at least 30 minutes 3 to 4 times a week. Advised patient to make healthy food choices, eat more fruits, vegetables, whole grains, wild caught fish and low-fat dairy. Limit amount of meat and fried or fatty food products, as well as processed foods and fast foods. Follow-up scheduled with repeat fasting lipid panel in 3 months. (3) Essential hypertension: Code(s): I10 - Essential (primary) hypertension Plan: Continue lisinopril 20 mg daily, Reinforced importance of following a low sodium diet, getting regular exercise, and lowering stress levels. (4) Preoperative examination: Code(s): Z01.818 - Encounter for other preprocedural examination Plan: 67-year-old male here today for preoperative exam for right rotator cuff repair. Has diabetes mellitus, dyslipidemia and hypertension, currently stable with present treatment. Preoperative exam is unremarkable. Latest EKG shows normal sinus rhythm with no acute ST-T changes. Patient with low cardiac risk index for proposed surgery Orders: Orders Lipid Panel 05/12/23 E11.9 - Type 2 diabetes mellitus without complications, E78.2 - Mixed hyperlipidemia Alanine Aminotransferase 05/12/23 E11.9 - Type 2 diabetes mellitus without complications, E78.2 - Mixed hyperlipidemia Aspartate Amino Transferase 05/12/23 E11.9 - Type 2 diabetes mellitus without complications, E78.2 - Mixed hyperlipidemia Hemoglobin A1c 05/12/23 E11.9 - Type 2 diabetes mellitus without complications, E78.2 - Mixed hyperlipidemia Coding Level of Care Code Est Pt Level 4 (81963) Diagnoses Type 2 diabetes mellitus without complication, without long-term current use of insulin E11.9 Mixed dyslipidemia E78.2 Essential hypertension I10 Preoperative examination Z01.818
== END 2023-03-03 12:49 | disposition home or self-care (01) ==
PROVIDERS: Visit Provider Internal Medicine
DX: E11.9 Type 2 diabetes mellitus without complications (principal); E78.2 Mixed hyperlipidemia; I10 Essential (primary) hypertension; Z01.818 Encounter for other preprocedural examination
CPT/HCPCS: 99214

== ENCOUNTER 2023-03-10 11:10 | Outpatient (AMB) | payer OTHER, SELFPAY ==
--- NOTE | 2023-03-10 11:15 | MHC.OFFVIS ---
Intake Vital Signs 03/10/23 11:22 Height 5 ft 11 in Weight 219 lb BMI 30.5 Intake Visit Reasons: RT TSA 03/25/23 NE Intake Note: Doni is a 67 year old male who presents today for a preoperative appointment, he is booked for a Right TSA 03/25/23. Allergies No Known Allergies [No Known Allergies*] Allergy (Verified 03/03/23 12:23) HPI RT TSA 03/25/23 NE HPI Details Doni is a 67 year old man who presents for a pre-op appointment for a right rTSA, DOS: 03/25/23. he is also scheduled for a pre-op appointment with EVARISTO Franklin on 03/20/23. He has pain with daily activity, worse with ROM, overhead activity, reaching activities, and at night. he had some relief from steroid injections and PT, but this was short-term. His pain began after a fall in 08/[address] scan is scheduled to be completed tomorrow. [facility] Medical History Essential hypertension History of gout Mixed dyslipidemia Osteoarthritis involving multiple joints on both sides of body Type 2 diabetes mellitus without complication, without long-term current use of insulin Surgical History History of carpal tunnel release Hx of total knee replacement Family History Father No problems noted. Mother No problems noted. Sister Cervical cancer Uterine cancer Hypothyroidism Social History Housing: House Alcohol intake: current Patient Tobacco Use Status: Never used Tobacco e-Cigarette/Vaping Use: Never Used service: No Current occupational status: employed Current occupation: [employer], left hand dominant Cognitive needs: No Hearing needs: No Vision needs: Yes Review of Systems Const All systems reviewed & are unremarkable except as noted in HPI and below Physical Exam Vital Signs: BMI result Body Mass Index 30.5 Const General: no acute distress, alert and awake Orientation/consciousness: patient oriented x3 HEENT Head: Yes normocephalic and Yes atraumatic Eyes EOM: EOMs intact bilaterally Resp Effort & Inspection: normal respiratory effort and able to speak in complete sentences Cardio Jugular venous distension: no JVD Skin General skin exam: turgor normal Rashes: no rashes Neuro General: patient oriented x3 Extrem Other: Right Shoulder: + drop-arm test Can get hand slowly up above shoulder but with pain Pain with acentric motion Psych Appearance: grossly normal Affect: normal affect Attitude: cooperative Results Reviewed Results Reviewed: I personally reviewed relevant MR images 1. Completely torn and retracted supraspinatus and infraspinatus tendons with moderate muscle atrophy and mild fatty infiltration. The humeral head is superiorly subluxed and abuts the undersurface of the acromion. 2. Subscapularis tendinopathy with mild ill-defined undersurface partial tearing. 3. Proximal biceps tendinopathy with ill-defined longitudinal partial tearing. The tendon is partially subluxed out of the bicipital groove. 4. Moderate acromioclavicular and mild glenohumeral osteoarthritis. Assessment & Plan Assessment & Plan (1) Rotator cuff arthropathy of right shoulder: Code(s): M12.811 - Other specific arthropathies, not elsewhere classified, right shoulder Plan: This is a 67 year old man with right RTC arthropathy. He is scheduled for a right rTSA, DOS: 03/25/23. He has pain with daily activity, worse with overhead activity, reaching activities, ROM, and at night. He has failed conservative treatment options and feels his QOL is diminished. I discussed the risks, benefits, and alternatives including, but not limited to, the risk of pain, infection, stiffness, need for further surgery as well as potential medical complications such as blood clots, pulmonary embolism and cardiac complications. I explained that overhead lifting, wieight lifting is discouraged after rTSA. I reviewed his MRI with him and while I think it is unlikely, I can not definitively say his cuff in unrepairable. He describes an injury 6 months ago and his cuff was intact in an MRI from 2006. His plain radiographs do not show superior migration of the HH and it is possible that the cuff is, at least partially, repairable. I recommend we attempt arthroscopic RTC repair. I discussed the risks & benefits of attempted shoulder and the possibility that it is not helpful. He wishes to proceed with a shoulder RTC repair at this time. (2) Type 2 diabetes mellitus without complication, without long-term current use of insulin: Code(s): E11.9 - Type 2 diabetes mellitus without complications Plan: His most recent HgA1c was 6.7% on 02/19/23. Plan Scribed for Kike Forde MD by Danny Amado, medical record librarians teacher, on 03/10/23 at 11:45 AM, EST. Coding Level of Care Code Est Pt Level 4 (08769) Diagnoses Rotator cuff arthropathy of right shoulder M12.811 Type 2 diabetes mellitus without complication, without long-term current use of insulin E11.9
[2023-03-10 11:22] VITALS: BMI 30.5
== END 2023-03-10 11:57 | disposition home or self-care (01) ==
PROVIDERS: PCP Internal Medicine; Visit Provider Orthopaedic Surgery
DX: M12.811 Other specific arthropathies, not elsewhere classified, right shoulder (principal); S46.011A Strain of muscle(s) and tendon(s) of the rotator cuff of right shoulder, initial encounter
CPT/HCPCS: 99214

== ENCOUNTER → 2023-03-10 11:10 | Outpatient (BNVA) | payer OTHER, SELFPAY | PROVIDERS: PCP Internal Medicine; Visit Provider Orthopaedic Surgery ==

== ENCOUNTER 2023-03-26 09:59 | Day surgery (SDC) | payer OTHER, SELFPAY ==
[2023-03-03 07:24] LABS: MANUAL DIFF FLAG NO
--- NOTE | 2023-03-03 07:28 | ECG_ITS ---
Test Reason : z01.818 Blood Pressure : / mmHG Vent. Rate : 076 BPM Atrial Rate : 076 BPM P-R Int : 176 ms QRS Dur : 098 ms QT Int : 350 ms P-R-T Axes : 036 -22 013 degrees QTc Int : 393 ms Normal sinus rhythm Normal ECG When compared with ECG of 28-NOV-2016 10:03, No significant change was found Referred By: Frida Gage Electronically Signed By:JASON JIM
[2023-03-03 08:05] LABS: Basophils Percent Auto 0.6 % (0-2); Eosinophils Absolute Auto 0.3 X10*3/uL (0.0-0.4); Eosinophils Percent Auto 3.8 % (0-4); Hematocrit 50.6 % (42.0-52.0); Hemoglobin 17.4 g/dl (14.0-18.0); Imm Gran Abs Auto 0.04 X10*3/uL (0.00-0.03); Imm Gran Pct Auto 0.6 % (0.0-0.4); Lymphocytes Absolute Auto 1.8 X10*3/uL (1.2-4.9); Lymphocytes Percent Auto 27.7 % (20-40); Mean Corpuscular HGB Conc 34.4 g/dl (31.0-36.0); Mean Corpuscular Hemoglobin 29.1 pg (27.0-33.0); Mean Corpuscular Volume 84.8 fL (80.0-98.0); Mean Platelet Volume 10.7 fL (9.4-12.4); Monocytes Absolute Auto 0.6 X10*3/uL (0.1-1.2); Monocytes Percent Auto 8.5 % (2-11); Neutrophils Absolute Auto 3.9 x10*3/uL (2.0-8.3); Neutrophils Percent Auto 58.8 % (45-73); Platelet Count 150 X10*3/uL (160-400); Red Blood Count 5.97 X10*6/uL (4.60-5.80); Red Cell Distribution Width 13.1 % (11.0-16.0); White Blood Count 6.6 X10*3/uL (4.8-10.8)
[2023-03-24 14:29] VITALS: BMI 30.5
--- NOTE | 2023-03-25 09:41 | P.CONAN_ITS ---
Documented by User: Mireille Alanis NP 03/25/23 09:45 HPI - Anesthesia Eval Consult details Narrative: 67yo M for Right ?Arthroscopic Rotator Cuff Repair PMFSH Active Problems Active Problems: All Active Problems (Updated 02/28/23 @ 10:51 by Alva Franklin PA-C) Rotator cuff arthropathy of right shoulder (Acute) Osteoarthritis of acromioclavicular joint (Acute) Tendinitis of right rotator cuff (Acute) Shoulder pain, right (Acute) History of gout (Acute) Erectile dysfunction associated with type 2 diabetes mellitus (Acute) Essential hypertension (Acute) Osteoarthritis involving multiple joints on both sides of body (Acute) Mixed dyslipidemia (Acute) Type 2 diabetes mellitus without complication, without long-term current use of insulin (Acute) Hypogonadism in male (Acute) Past Medical History Medical History Essential hypertension History of gout Mixed dyslipidemia Osteoarthritis involving multiple joints on both sides of body Type 2 diabetes mellitus without complication, without long-term current use of insulin Family History Family History Father No problems noted. Mother No problems noted. Sister Cervical cancer Uterine cancer Hypothyroidism Surgical History Surgical History History of carpal tunnel release Hx of total knee replacement Social History Social History Housing: House Alcohol intake: current Patient Tobacco Use Status: Never used Tobacco e-Cigarette/Vaping Use: Never Used Have you been hit, kicked, punched, or otherwise hurt by someone within the past year? If so, by whom?: No Are you DNR?: No Advance Directives: No Advance Directives Information Provided: Yes Recently lost weight without trying: No Eating poorly because of decreased appetite: No Nutrition Risks: No Nutritional Risk Poor oral hygiene: No service: No Current occupational status: employed Current occupation: [employer], left hand dominant Cognitive needs: No Hearing needs: No Vision needs: Yes Meds Allergies Allergy/AdvReac Type Severity Reaction Status Date / Time No Known Allergies Allergy Verified 03/03/23 12:23 [No Known Allergies*] Exam Exam Date and Time: March 25, 2023 0941 Height,Weight and Vital Signs: Height 5 ft 11 in Weight 99.337 kg Pertinent Lab Results Pertinent Lab Results: Laboratory Tests 03/03/23 07:22 WBC 6.6 RBC 5.97 H Hgb 17.4 Hct 50.6 MCV 84.8 MCH 29.1 MCHC 34.4 RDW 13.1 Plt Count 150 L MPV 10.7 Immature Gran % (Auto) 0.6 H Neut % (Auto) 58.8 Lymph % (Auto) 27.7 [place] % (Auto) 8.5 Eos % (Auto) 3.8 Baso % (Auto) 0.6 Lymph # (Auto) 1.8 [place] # (Auto) 0.6 Eos # (Auto) 0.3 Baso # (Auto) 0.0 Abs Immat Gran (auto) 0.04 H Absolute Neuts (auto) 3.9 Absolute Nucleated RBC 0.000 Nucleated RBC % (auto) 0.0 Laboratory Tests 02/19/23 03/03/23 07:30 07:22 WBC 6.6 Hgb 17.4 Hct 50.6 Plt Count 150 L Sodium 137 Potassium 4.5 Chloride 104 Carbon Dioxide 23 BUN 14 Creatinine 1.05 Narrative Narrative: EKG 02/2023 Vent. Rate : 076 BPM Atrial Rate : 076 BPM P-R Int : 176 ms QRS Dur : 098 ms QT Int : 350 ms P-R-T Axes : 036 -22 013 degrees QTc Int : 393 ms Normal sinus rhythm Normal ECG When compared with ECG of 28-NOV-2016 10:03, No significant change was found Assessment and Plan Assessment Anesthesia Assessment: Chart Reviewed Documented by User: Lorenzo Salazar MD 03/26/23 11:28 [facility] Past Medical History Medical History Essential hypertension History of gout Mixed dyslipidemia Osteoarthritis involving multiple joints on both sides of body Type 2 diabetes mellitus without complication, without long-term current use of insulin Family History Family History Father No problems noted. Mother No problems noted. Sister Cervical cancer Uterine cancer Hypothyroidism Family history of problems with anesthesia: No Surgical History Surgical History History of carpal tunnel release Hx of total knee replacement History of Problems with Anesthesia: No Social History Social History Housing: House Alcohol intake: current Patient Tobacco Use Status: Never used Tobacco e-Cigarette/Vaping Use: Never Used Have you been hit, kicked, punched, or otherwise hurt by someone within the past year? If so, by whom?: No Are you DNR?: No Advance Directives: No Advance Directives Information Provided: Yes Recently lost weight without trying: No Eating poorly because of decreased appetite: No Nutrition Risks: No Nutritional Risk Poor oral hygiene: No service: No Current occupational status: employed Current occupation: [employer], left hand dominant Cognitive needs: No Hearing needs: No Vision needs: Yes Meds Allergies Allergy/AdvReac Type Severity Reaction Status Date / Time No Known Allergies Allergy Verified 03/03/23 12:23 [No Known Allergies*] Exam Airway Mallampati Class: II TM Dist: >3cm Neck ROM: Limited Heart: rrr Lungs: CTA Assessment and Plan Assessment Anesthesia Assessment: Anesthesia Plan Discussed Final Anesthetic Review Family History of Problems with Anesthesia: No History of Problems with Anesthesia: No NPO: Yes ASA Class: III Final Preanesthetic Review: No Changes in Pt Med Stat, Meds/Allgs Chart Reviewed, Consent Obtained/Reviewed and Anes Risks/Benef Reviewed Patient Risk: Intermediate Procedure Risk: Intermediate Anesthetic Plan Anesthetic Plan: GA and Regional Block Disposition: Standard PACU
[2023-03-26] VITALS (8 sets, daily range): BP systolic 116–145; BP diastolic 67–89; PULSE 76–83; RESP 16–18; TEMP 36.6–36.8; O2SAT 95–97
[2023-03-26 10:38] LABS: Glucose, Whole Blood 221 mg/dL (60-115)
--- NOTE | 2023-03-26 15:57 | PM.OP ---
Brief Operative Note Date of Service: 03/26/23 Pre-op diagnosis: massive rtc tear, right Post-op diagnosis: same Procedure: RTC repair, right Implants: [employer] double loaded helacoil x 3 and 5.5 knotless helacoil lateral row x 3 Surgeon: Kike Forde MD Anesthesia: GETA and regional Was an Senior Instrumentation Engineer used for this Procedure?: Yes Senior Instrumentation Engineer: Radha Alvarez Estimated blood loss (mL): 20 IV fluids (mL): 850 Pathology: none sent Condition: stable Disposition: PACU
--- NOTE | 2023-04-03 14:07 | W.PM.OPN ---
Operative Note Operative Note Date of Service: 03/26/23 Narrative: Date of Service: 03/26/23 Pre-op diagnosis: massive rtc tear, right Post-op diagnosis: same Procedure: RTC repair, right Implants: Jo and Nephew double loaded helacoil x 3 and 5.5 knotless helacoil lateral row x 3 Regeneten collagen bioinductive implant, Jo and Nephew Surgeon: Kike Forde MD Anesthesia: GETA and regional Was an Design Engineer Products used for this Procedure?: Yes Design Engineer Products: Radha Alvarez Estimated blood loss (mL): 20 IV fluids (mL): 850 Pathology: none sent Condition: stable Disposition: PACU Procedure in detail: Patient was brought to the operating room and placed the the beach chair position. All bony prominences were well padded and the limb was prepped and draped in standard sterile fashion. A time out was called to identify proper site, proper procedure and proper surgeon. IV antibiotics per weight were administered. I began by making a posterolateral stab incision with a 15 blade. A blunt trochar was placed into the glenohumeral joint and I insufflated the joint with saline and a 30 degree arthroscope was placed. I established an outside- in anterior portal just distal to the biceps tendon. I then began my inspection of the glenohumeral joint. There was a large degenerative SLAP tear and the biceps anchor was absent. There were minimal cartilage changes at the inferior glenoid without humeral head changes. There was a full thickness undersurface RTC tear. The subcapularis was torn and retracted. It was NOT mobile. I debrided the loose cartilage of the glenoid and the degenerative labral tearing and performed a biceps tenotomy. I then removed the trochar and entered the subacromial space. A direct lateral portal was then established and I performed a bursectomy. The cuff was then examined. There was a massive full thickness tear of entire cuff with retraction. I probed the tear and released anteriorl and superiorly and suprisingly there was mobility and I was able to bring the cuff to the articular edge with the bare area. I then placed three medial row double loaded anchors after using a tap just adjacent to the articular cartilage and then brought the suture limbs (12) through the medial cuff. I then debrided the bare area down to bleeding bone and, using a cross bridge configuration, brought 4 limbs to each of three lateral 5.5 anchors. This re-approximated the cuff exceptionally well considering the extend of retraction. The tissue quality was also good. I then placed a Regeneten bioinductiuve implant over the lateral cuff. PEEK holland were used medially and two bone holland used laterally. Once I was satisfied with the repair and the graft, final images were captured and I removed all instrumentation. Portals were closed with nylon. Patient was placed in an abduction sling, extubated and brought to the recovery room in stable condition. There were no known complications. Large RT repair protocol
== END 2023-03-26 15:37 | disposition home or self-care (01) ==
LOC: HO.SSS 10:00
PROVIDERS: PCP Internal Medicine; Visit Provider Orthopaedic Surgery
PROC: (CPT 29827; principal; 2023-03-26 12:00)
DX: S43.431A Superior glenoid labrum lesion of right shoulder, initial encounter (principal); M15.9 Polyosteoarthritis, unspecified; M25.511 Pain in right shoulder; W19.XXXA Unspecified fall, initial encounter; Y93.9 Activity, unspecified; Y92.9 Unspecified place or not applicable; Y99.9 Unspecified external cause status; M10.9 Gout, unspecified; E11.9 Type 2 diabetes mellitus without complications; I10 Essential (primary) hypertension; E78.2 Mixed hyperlipidemia; Z79.84 Long term (current) use of oral hypoglycemic drugs; Z79.899 Other long term (current) drug therapy
CPT/HCPCS: 29827; 36415; 82947; 85025; 93005; C1713; C1781; J0690; J1100; J1885; J2371; J2405; J2795

== ENCOUNTER → 2023-03-26 09:59 | Outpatient (BNV) | payer OTHER, SELFPAY | PROVIDERS: PCP Internal Medicine; Visit Provider Orthopaedic Surgery | DX: S46.011A Strain of muscle(s) and tendon(s) of the rotator cuff of right shoulder, initial encounter (principal) | CPT/HCPCS: 29827 ==

== ENCOUNTER 2023-04-07 10:56 | Outpatient (AMB) | payer OTHER, SELFPAY ==
--- NOTE | 2023-04-07 11:04 | A.OFFVIS_ITS ---
Intake Intake Visit Reasons: PO-Rt RTC 03/26 NE Intake Note: Doni is a 67 year old left hand dominant male who presents today for a post operative appointment s/p Right RTC Repair 03/26/23. Patient reports that he is doing well with any concerns. Allergies No Known Allergies [No Known Allergies*] Allergy (Verified 04/07/23 11:07) HPI PO-Rt RTC 03/26 NE HPI Details 67-year-old male who returns to the [facility] today for post-op right RTC repair, 03/26/[address] Forde. He states he has some pain in his shoulder which makes him unable to sleep but is doing well otherwise. He has no concerns today. Date of Service: 03/26/23 Pre-op diagnosis: massive rtc tear, right Post-op diagnosis: same Procedure: RTC repair, right Implants: Romero and Nephew double loaded helacoil x 3 and 5.5 knotless helacoil lateral row x 3 Regeneten collagen bioinductive implant, Romero and Nephew [facility] Medical History Essential hypertension History of gout Mixed dyslipidemia Osteoarthritis involving multiple joints on both sides of body Type 2 diabetes mellitus without complication, without long-term current use of insulin Surgical History History of carpal tunnel release Hx of total knee replacement Family History Father No problems noted. Mother No problems noted. Sister Cervical cancer Uterine cancer Hypothyroidism Social History Housing: House Alcohol intake: current Patient Tobacco Use Status: Never used Tobacco e-Cigarette/Vaping Use: Never Used service: No Current occupational status: employed Current occupation: [employer], left hand dominant Cognitive needs: No Hearing needs: No Vision needs: Yes Review of Systems Const All systems reviewed & are unremarkable except as noted in HPI and below Physical Exam Extrem Other: Right shoulder: Normal to inspection. He does have some ecchymosis from surgery. Incision clean, dry and intact. No erythema or drainage. NVI. Assessment & Plan Assessment & Plan (1) S/P rotator cuff repair: Code(s): Z98.890 - Other specified postprocedural states Plan Dr. Forde was available to see the patient with me today. We reviewed operative images and discussed surgery in detail. He will wear his sling until he is 6 weeks post-op. He will begin a course of physical therapy to work on passive ROM, periscapular strengthening exercises and follow-up in 4 weeks, sooner if needed. Orders: Orders PT Evaluation and Treatment Today M12.811 - Other specific arthropathies, not elsewhere classified, right shoulder, Z98.890 - Other specified postprocedural states Patient Instructions: Scribed for Alva Franklin PA-C, by Gideon Herrera medical office assistant instructor, on 04/07/2023 at 11:00 AM EST. I, Alva Franklin PA-C, have personally reviewed and agree with the information entered by the scribe. Coding Level of Care Code Global (85640) Diagnoses S/P rotator cuff repair Z98.890
== END 2023-04-07 11:24 | disposition home or self-care (01) ==
PROVIDERS: PCP Internal Medicine; Visit Provider Physician Assistant
DX: Z98.890 Other specified postprocedural states (principal)
CPT/HCPCS: 99024

== ENCOUNTER → 2023-04-07 10:56 | Outpatient (BNVA) | payer OTHER, SELFPAY | PROVIDERS: PCP Internal Medicine; Visit Provider Physician Assistant ==

== ENCOUNTER 2023-05-05 08:42 | Outpatient (AMB) | payer OTHER, SELFPAY ==
--- NOTE | 2023-05-05 08:42 | A.OFFVIS_ITS ---
Intake Intake Visit Reasons: PO-Rt RTC repair 03/26/23- Intake Note: Doni is a 67 year old left hand dominant male who presents today for a 5 week post operative appointment s/p Right RTC Repair 03/26/23. Patient reports thati he is doing well and is still working with PT. Allergies No Known Allergies [No Known Allergies*] Allergy (Verified 05/05/23 08:44) HPI PO-Rt RTC repair 03/26/23- HPI Details Doni is a 67 year old man who presents ~5 weeks S/P right RTC repair. He says he is doing well and continues to work with PT. He has been wearing his sling since his surgery, and wants to know when this can be discontinued. [facility] Medical History History of gout Essential hypertension Osteoarthritis involving multiple joints on both sides of body Mixed dyslipidemia Type 2 diabetes mellitus without complication, without long-term current use of insulin Surgical History History of carpal tunnel release Hx of total knee replacement Family History Father No problems noted. Mother No problems noted. Sister Cervical cancer Uterine cancer Hypothyroidism Housing: House Alcohol intake: current Patient Tobacco Use Status: Never used Tobacco e-Cigarette/Vaping Use: Never Used service: No Current occupational status: employed Current occupation: [employer], left hand dominant Cognitive needs: No Hearing needs: No Vision needs: Yes Review of Systems Const All systems reviewed & are unremarkable except as noted in HPI and below Physical Exam Const General: no acute distress, alert and awake Orientation/consciousness: patient oriented x3 HEENT Head: Yes normocephalic and Yes atraumatic Eyes EOM: EOMs intact bilaterally Resp Effort & Inspection: normal respiratory effort and able to speak in complete sentences Cardio Jugular venous distension: no JVD Skin General skin exam: turgor normal Rashes: no rashes Neuro General: patient oriented x3 Extrem Other: Right Shoulder: Portals C/D/I Psych Appearance: grossly normal Affect: normal affect Attitude: cooperative Assessment & Plan Assessment & Plan (1) S/P rotator cuff repair: Code(s): Z98.890 - Other specified postprocedural states Plan: This is a 67 year old man S/P right RTC repair, DOS: 03/26/23. He is doing well. He can d/c sling. Reviewed lg tear protocol. f/u 6 weeks Coding Level of Care Code Global (75211) Diagnoses S/P rotator cuff repair Z98.890
== END 2023-05-05 09:01 | disposition home or self-care (01) ==
PROVIDERS: PCP Internal Medicine; Visit Provider Orthopaedic Surgery
DX: Z98.890 Other specified postprocedural states (principal)
CPT/HCPCS: 99024

== ENCOUNTER → 2023-05-05 08:42 | Outpatient (BNVA) | payer OTHER, SELFPAY | PROVIDERS: PCP Internal Medicine; Visit Provider Orthopaedic Surgery ==

== ENCOUNTER 2023-06-16 08:22 | Outpatient (AMB) | payer OTHER, SELFPAY ==
--- NOTE | 2023-06-16 07:33 | MHC.OFFVIS ---
Intake Vital Signs 06/16/23 08:31 Height 5 ft 10 in Weight 215 lb BMI 30.8 Intake Visit Reasons: PO-Rt RTC repair 03/26/23 Intake Note: Doni is a 67 year old left hand dominant male who presents today for a post operative appointment s/p Right RTC Repair 03/26/23. patient reports that he has no pain just a little soreness. Allergies No Known Allergies [No Known Allergies*] Allergy (Verified 06/16/23 08:33) HPI PO-Rt RTC repair 03/26/23 HPI Details 3 mo s/p lg RTC repair with Regeneten. He is doing well with no complaints Doing PT No lifting Some soreness after PT but feels well PFSH Medical History History of gout Essential hypertension Osteoarthritis involving multiple joints on both sides of body Mixed dyslipidemia Type 2 diabetes mellitus without complication, without long-term current use of insulin Surgical History (Updated 06/16/23 @ 08:36 by Asuncion Raphael CMA) S/P right rotator cuff repair (03/26/23) History of carpal tunnel release Hx of total knee replacement Family History Father No problems noted. Mother No problems noted. Sister Cervical cancer Uterine cancer Hypothyroidism Social History Housing: House Alcohol intake: current Patient Tobacco Use Status: Never used Tobacco e-Cigarette/Vaping Use: Never Used service: No Current occupational status: employed Current occupation: [email or web address], left hand dominant Cognitive needs: No Hearing needs: No Vision needs: Yes Physical Exam Vital Signs: BMI result Body Mass Index 30.8 Extrem Other: portals c/d/i ROM: 30/90/60/hip pocket Scapular recruitment with abduction Assessment & Plan Assessment & Plan (1) S/P rotator cuff repair: Code(s): Z98.890 - Other specified postprocedural states Plan: Continue PT and HEP No lifting f/u 3 months Coding Level of Care Code Global (43536) Diagnoses S/P rotator cuff repair Z98.890
[2023-06-16 08:31] VITALS: BMI 30.8
== END 2023-06-16 09:08 | disposition home or self-care (01) ==
PROVIDERS: PCP Internal Medicine; Visit Provider Orthopaedic Surgery
DX: Z98.890 Other specified postprocedural states (principal)
CPT/HCPCS: 99024

== ENCOUNTER → 2023-06-16 08:22 | Outpatient (BNVA) | payer OTHER, SELFPAY | PROVIDERS: PCP Internal Medicine; Visit Provider Orthopaedic Surgery ==

== ENCOUNTER 2023-06-30 07:06 | Outpatient (REF) | payer OTHER, SELFPAY ==
[2023-06-30 12:15] LABS: Estimated Average Glucose 197 mg/dL; Hemoglobin A1c % 8.5 % (<6.0)
[2023-06-30 12:22] LABS: Alanine Aminotransferase 26 U/L (0-40); Aspartate Amino Transferase 21 U/L (5-37); Cholesterol 134 mg/dL (<200); HDL Cholesterol 27 mg/dL (>40); LDL Cholesterol Calculated 63 mg/dL (<100); Triglycerides 222 mg/dL (<150)
== END 2023-06-30 07:07 | disposition home or self-care (01) ==
LOC: HO.HMGCLDS 07:06
PROVIDERS: PCP Internal Medicine; Visit Provider Internal Medicine
DX: E11.9 Type 2 diabetes mellitus without complications (principal); E78.2 Mixed hyperlipidemia
CPT/HCPCS: 36415; 80061; 83036; 84450; 84460

== ENCOUNTER 2023-07-01 12:52 | Outpatient (AMB) | payer OTHER, SELFPAY ==
[2023-07-01 13:12] VITALS: BP 132/80; PULSE 86; O2SAT 98; BMI 31.5
--- NOTE | 2023-07-01 13:12 | MHC.PC.OV ---
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 Accompanied by: Self / Same As Patient Allergies No Known Allergies [No Known Allergies*] Allergy (Verified 07/01/23 13:45) Medication List - Last Reconciled 07/01/23 by RAMÓN Heaton allopurinol 300 mg PO DAILY celecoxib (Celebrex) 200 mg PO BID 30 days cholecalciferol (vitamin D3) 50 mcg PO DAILY empagliflozin (Jardiance) 10 mg PO DAILY glyburide 10 mg (2 x 5 mg) PO BID 90 days lisinopril 20 mg PO DAILY metformin 1,000 mg PO BID 3 months rosuvastatin 5 mg PO Q OTHER DAY syringe with needle, safety (Monoject TB Safety Syringe) As directed tadalafil 10 mg PO DAILY 90 days testosterone cypionate (Depo-Testosterone) 80 mg (0.4 mL) subcut QWEEK 4 weeks Tobacco use date assessed: 07/01/23 Fall risk assessment: No Falls in past year Last assessed Fall Risk: 07/01/23 Dental Screening Dental Screen Date: 07/01/23 Did you have a dental visit in the last 12 months?: Yes Did you have a dental problem in the last 6 months where you did not have access to dental care?: No Was dental information given to patient?: Patient has dentist HPI HPI Comments History of Present Illness Details Patient is a 67-year-old male in for a follow-up visit for diabetes type 2. Patient is in office A1c is 8.5. He has a past medical history significant for hypertension and osteoarthritis. His diabetic medications include Jardiance, metformin, and glyburide. Patient states that he believes his A1c is elevated from not being able to exercise since his rotator cuff surgery 3.5 months ago. He is currently performing physical therapy and feels like he will be able to exercise again in the near future. Patient denies numbness, tingling, polyuria, polydipsia, chest pain, shortness a breath, nausea, vomiting, diarrhea. Patient declines titrating up on Jardiance, he states that he would like to bring his sugars down by improving his diet and with exercise. [facility] Medical History History of gout Essential hypertension Osteoarthritis involving multiple joints on both sides of body Mixed dyslipidemia Type 2 diabetes mellitus without complication, without long-term current use of insulin Surgical History S/P right rotator cuff repair (03/26/23) History of carpal tunnel release Hx of total knee replacement Family History Father No problems noted. Mother No problems noted. Sister Cervical cancer Uterine cancer Hypothyroidism Social History Housing: House Alcohol intake: current Patient Tobacco Use Status: Never used Tobacco e-Cigarette/Vaping Use: Never Used service: No Current occupational status: employed Current occupation: [employer], left hand dominant Cognitive needs: No Hearing needs: No Vision needs: Yes Questionnaire PHQ-9 Over the last 2 weeks, how often have you been bothered by any of the following problems? 1. Little interest or pleasure in doing things: not at all 2. Feeling down, depressed, or hopeless: not at all 3. Trouble falling or staying asleep, or sleeping too much: not at all 4. Feeling tired or having little energy: not at all 5. Poor appetite or overeating: not at all 6. Feeling bad about yourself - or that you are a failure or have let yourself or your family down: not at all 7. Trouble concentrating on things, such as reading the newspaper or watching television: not at all 8. Moving or speaking so slowly that other people could have noticed. Or the opposite - being so fidgety or restless that you have been moving around a lot more than usual: not at all 9. Thoughts that you would be better off or of hurting yourself in some way: not at all Total score: 0 Depression Screening Interpretation: Negative Depression Screening Done: Yes 88133 - PHQ-9 Billing: Yes Source: Developed by Drs. Nolvia Coppola, Shar Cornejo and colleagues, with an educational carlos from [employer]. Thrive Questionnaire Date Thrive assessed: 07/01/23 I am a: Patient What is your living situation today?: I have a steady place to live Within the past 12 months, did the food you bought not last and you didn't have the money to get more?: Never true Within the past 12 months, did you worry whether your food would run out before you got money to buy more?: Never true Do you have trouble paying for medicines?: No Do you have trouble getting transportation to medical appointments?: No Do you have trouble paying your heating and electricity bill?: No Do you have trouble taking care of your child, family member or friend?: No Do you have trouble with day-to-day activities such as bathing, preparing meals, shopping, managing finances, etc.?: No Are you currently unemployed and looking for a job?: No Are you interested in more education?: No Please select the resources that you would like help with: None Currently or been in a relationship where the following occur: no concerns reported THRIVE Score: 0 AUDIT C Alcohol Use Questionnaire (AUDIT-C) 1. How often do you have a drink containing alcohol?: Monthly or less 2. How many drinks containing alcohol do you have on a typical day when you are drinking?: 1 or 2 3. How often do you have six or more drinks on one occasion?: Never Total Score: 1 Score Reviewed/Action Taken: Yes JUAN MIGUEL-7 AMB Questionnaire JUAN MIGUEL-7 Date JUAN MIGUEL - 7 assessed: 07/01/23 Feeling nervous, anxious, or on edge: 0 = Not at all Not being able to stop or control worryin = Not at all Worrying too much about different things: 0 = Not at all Trouble relaxin = Not at all Being so restless that it is hard to sit still: 0 = Not at all Becoming easily annoyed or irritable: 0 = Not at all Feeling afraid as if something awful might happen: 0 = Not at all Total JUAN MIGUEL-7 score (0-4 normal; 5-9 mild; 10-14 moderate; 15-21 severe): 0 Source: Developed by Nolvia Cordero Kurt Kroenke and colleagues, with an educational carlos from [employer]. JUAN MIGUEL-7 Assessment Billing JUAN MIGUEL-7 Assessment Tool: JUAN MIGUEL-7 Assessment 73745 Review of Systems Const Details: Constitutional : No Weight loss, No Fever, No Chills, No Fatigue, No Malaise Eyes: No Eye Pain, No Swelling, No Redness, No discharge. Cardiovascular : No Chest Pain, No SOB, No Dyspnea on Exertion, No Orthopnea, No Edema, No Palpitations Respiratory : No Cough, No Sputum, No Wheezing Gastrointestinal : No Nausea, No Vomiting, No Diarrhea, No Constipation, No abdominal Pain, No Hematochezia, No Melena Genitourinary : No Dysuria, No Urinary Frequency, No Hematuria, Skin : No Skin Lesions, No rash Neuro : No Weakness, No Numbness, No Dizziness, No Headache Psych : No Anxiety/Panic, No Depression Heme/Lymph: No Bruising, No Bleeding,No Lymphadenopathy Endocrine : No Polyuria, No Polydipsia All other systems reviewed and are negative Eyes Denies blurry vision Physical exam (Primary Care) Vital Signs: Last Vital Signs Pulse 86 07/01/23 13:12 BP 132/80 07/01/23 13:12 Pulse Ox 98 07/01/23 13:12 Oxygen Delivery Method Room Air 07/01/23 13:12 Care Plan Goal for BP management: Vital signs reviewed and are stable. BMI result Body Mass Index 31.5 Tobacco/Smoking Status: Tobacco use Status Tobacco use date assessed 07/01/23 07/01/23 13:13 Patient Tobacco Use Status Never used Tobacco 07/01/23 13:13 e-Cigarette/Vaping Use Never Used 07/01/23 13:13 PHQ-9: PHQ-9 Score PHQ-9: Total score 0 07/01/23 13:29 Depression Screening Interpretation: Negative Thrive Assessment: Date of Thrive Assessment Date Thrive assessed 07/01/23 07/01/23 13:29 Currently or been in a relationship where the following occur: no concerns reported Const Other: Appearance: Alert.? Oriented X3.? No acute distress.? Head: Normocephalic, atraumatic, no step-offs or deformities Eyes: No photophobia. Red reflex present. CVS: Normal heart rate and rhythm.? Pulses normal.?S1 and S2. Respiratory: No respiratory distress.? Breath sounds normal.?No rubs/gallops/rhonchi. Skin: Skin warm and dry.? Normal skin color.? Normal skin turgor.? Extremities: No lower extremity edema.? Neuro: Oriented X 3.? No motor deficit.? No sensory deficit. Sensate to monofilament. CN 2-12 intact General: cooperative and no acute distress Eyes General: appearance normal, both eyes and all related structures Neck Neck: Yes normal visual inspection Resp Auscultation: clear to auscultation bilaterally Cardio Rate: regular rate Rhythm: regular rhythm Heart sounds: S1 normal heart sound present and S2 normal heart sound present Peripheral pulses: Peripheral pulses 2+ throughout GI Inspection: Yes normal to inspection Skin General skin exam: no rashes or lesions noted Assessment and Plan Assessment & Plan (1) Type 2 diabetes mellitus without complication, without long-term current use of insulin: Comment: Patient's A1c in office today was 8.5. He has declined titration up on his Jardiance. Instead he would like to try to lower his blood sugar levels with diet exercise. He is starting to feel closer to baseline status post right rotator cuff repair, and believes he will be able to start exercising soon. He offers no other complaints at today's appointment. Will have patient return in 3 months, with labs drawn the week prior. Code(s): E11.9 - Type 2 diabetes mellitus without complications Plan: Patient will continue to monitor blood sugar levels at home, and will continue to work on his diet and exercise routine. He has been educated on signs of worsening symptoms and when to report back to the office or when to present to the emergency room. Plan Follow-up with PCP in 3 months. Coding Level of Care Code Est Pt Level 3 (39043) Diagnoses Type 2 diabetes mellitus without complication, without long-term current use of insulin E11.9 Additional Codes JUAN MIGUEL-7 Assessment Billing - JUAN MIGUEL-7 Assessment Tool: JUAN MIGUEL-7 Assessment 99006 ([id number]) Time Spent (min) 35
== END 2023-07-01 13:44 | disposition home or self-care (01) ==
PROVIDERS: PCP Internal Medicine; Visit Provider Nurse Practitioner Primary Care
DX: E11.9 Type 2 diabetes mellitus without complications (principal)
CPT/HCPCS: 99213

== ENCOUNTER 2023-07-07 10:02 | Outpatient (REF) | payer OTHER, SELFPAY ==
[2023-07-07 13:23] LABS: Hematocrit 49.5 % (42.0-52.0); Hemoglobin 16.7 g/dl (14.0-18.0); Mean Corpuscular HGB Conc 33.7 g/dl (31.0-36.0); Mean Corpuscular Hemoglobin 28.5 pg (27.0-33.0); Mean Corpuscular Volume 84.6 fL (80.0-98.0); Mean Platelet Volume 11.7 fL (9.4-12.4); Platelet Count 164 X10*3/uL (160-400); Red Blood Count 5.85 X10*6/uL (4.60-5.80); Red Cell Distribution Width 13.5 % (11.0-16.0); White Blood Count 7.3 X10*3/uL (4.8-10.8)
[2023-07-07 14:12] LABS: Prostate Specific Antigen 0.64 ng/mL (<0.05-4.0)
[2023-07-10 16:29] LABS: Testosterone, Total 284 ng/dL (250-1100)
== END 2023-07-07 10:03 | disposition home or self-care (01) ==
LOC: HO.HMGCLDS 10:02
PROVIDERS: PCP Internal Medicine; Visit Provider Urology
DX: Z12.5 Encounter for screening for malignant neoplasm of prostate (principal); E29.1 Testicular hypofunction
CPT/HCPCS: 36415; 84153; 84403; 85027

== ENCOUNTER 2023-08-19 13:14 | Outpatient (AMB) | payer OTHER, SELFPAY ==
--- NOTE | 2023-08-19 13:15 | MHC.OFFVIS ---
Intake Intake Visit Reasons: 6M PSA/Testo(set)Portal Confirm Intake Note: Patient is Present for Telephone Follow Up Urology Med: Tadalafil, Testosterone Antibiotic Allergy:None Blood Thinner: None Allergies No Known Allergies [No Known Allergies*] Allergy (Verified 08/19/23 13:17) Medication List - Last Reconciled 08/19/23 by Marek Lopez MD allopurinol 300 mg PO DAILY celecoxib (Celebrex) 200 mg PO BID 30 days cholecalciferol (vitamin D3) 50 mcg PO DAILY empagliflozin (Jardiance) 10 mg PO DAILY glyburide 10 mg (2 x 5 mg) PO BID 90 days lisinopril 20 mg PO DAILY metformin 1,000 mg PO BID 3 months rosuvastatin 5 mg PO Q OTHER DAY syringe with needle, safety (Monoject TB Safety Syringe) As directed tadalafil 10 mg PO DAILY 90 days testosterone cypionate (Depo-Testosterone) 80 mg (0.4 mL) subcut QWEEK 4 weeks HPI HPI Comments History of Present Illness Details Doni is a very pleasant male. He is seen for the following urologic conditions - erectile dysfunction in setting of diabetes - hypogonadism Telemedicine evaluation 15 minute consultation VideoMining shannan Video attempted Lab work stable Primary issue is erectile dysfunction Good response to maximize of medications with 10 mg daily tadalafil and 20 mg p.r.n. demand 6 month follow-up Hypogonadism: He presents today for further evaluation and followup of his hypogonadism - Current therapy 0.4 cc subcutaneous weekly Fri injection/Lab Friday Initial symptoms include erectile dysfunction Yes decreased libido Yes The onset of symptoms has been gradual. Associate conditions include obstructive sleep apnea No CAD No diabetes Yes dyslipidemia Yes hypertension Yes Laboratory results 11/25 , baseline T 200 Free T 44 12/25 T 207, FSH 8.6, 02/25 T 130, 05/27 T 175, 09/27 T 387, PSA 0.6, 04/29 T 350 P 0.5, 11/28 T 300 0.46 48, 04/30 396 0.8, 12/29 327 0.58 47 - HBA1c - 08/29 7.2% Therapeutic plan 6 month follow-up Erectile dysfunction: Increased to 10 mg daily with a escalating dose on demand Symptoms have been present for/since gradual since 2016. Current treatment includes 10 mg daily Cialis plus Cialis 20 mg Treatment side effects include none. Prior therapies include oral medications. At this time he experiences erections are partial and adequate for vaginal penetration, that undergo rapid detumesence after penetration, BARI 8-11 Moderate ED. Nocturnal erections do not occur. Currently they are in a stable relationship. Associated problems hypertension Yes diabetes Yes dyslipidemia Yes Overall he is not satisfied with the current management. Therapeutic plan includes Escalating oral doses PFSH Medical History History of gout Essential hypertension Osteoarthritis involving multiple joints on both sides of body Mixed dyslipidemia Type 2 diabetes mellitus without complication, without long-term current use of insulin Surgical History S/P right rotator cuff repair (03/26/23) History of carpal tunnel release Hx of total knee replacement Family History Father No problems noted. Mother No problems noted. Sister Cervical cancer Uterine cancer Hypothyroidism Social History Housing: House Alcohol intake: current Patient Tobacco Use Status: Never used Tobacco e-Cigarette/Vaping Use: Never Used service: No Current occupational status: employed Current occupation: [employer], left hand dominant Cognitive needs: No Hearing needs: No Vision needs: Yes Review of Systems Const All systems reviewed & are unremarkable except as noted in HPI and below Reports no additional complaints Resp Reports no additional complaints GI Reports no additional complaints Reports as per HPI Musc Reports no additional complaints Physical Exam Telemedicine evaluation Appropriate responses Regular breathing rate and rhythm HEENT Head: Yes normal to inspection Ears: hearing grossly normal bilaterally Eyes General: appearance normal, both eyes and all related structures Neck Neck: Yes normal visual inspection Chest Chest palpation & inspection: normal inspection of the chest Resp Effort & Inspection: normal respiratory effort and able to speak in complete sentences Assessment & Plan Assessment & Plan (1) Erectile dysfunction associated with type 2 diabetes mellitus: Code(s): E11.69 - Type 2 diabetes mellitus with other specified complication; N52.1 - Erectile dysfunction due to diseases classified elsewhere (2) Hypogonadism in male: Code(s): E29.1 - Testicular hypofunction Plan Six-month follow-up Continue labs Continue current medications Orders: Orders Testosterone, Total 6 Months E29.1 - Testicular hypofunction Prostate Specific Antigen 6 Months E29.1 - Testicular hypofunction Complete Blood Count no Diff 6 Months E29.1 - Testicular hypofunction Patient Instructions: Imaging studies, laboratory and physical exam results were discussed and reviewed in detail. No major barriers to patient understanding were identified. An opportunity to ask questions regarding the treatment plan was provided. All questions were answered. The patient expressed understanding and agreement with the above treatment plan. The patient is aware they should contact our office by phone for worsening of their current condition or the appearance of new urologic symptoms. Compliance is encouraged with any medications and followup testing that is ordered. It is a privilege to participate in the urologic care of your patient. If you have any questions or concerns regarding treatment for the above conditions, or other urologic issues, please do not hesitate to contact me. The office telephone contact is [phone]. This note is constructed using voice recognition software. While every effort has been made to ensure accuracy hygiene teacher errors may have been included. Yours sincerely, Dr Marek Lopez MD, [facility] - Urology Providers of Expert, Compassionate Care for the Genitourinary System Telehealth Telehealth Location of provider rendering services: practice address Location of patient: address on file Patient Identification confirmed using: Name, : Yes Telehealth method: video Patient verbally consented to treatment: Yes Patient verbally consented to billing insurance company: Yes Patient informed of any privacy concerns related to visit: Yes Coding Level of Care Code Tele Est Pt Level 3 (71135) Diagnoses Erectile dysfunction associated with type 2 diabetes mellitus E11.69; N52.1 Hypogonadism in male E29.1
== END 2023-08-19 14:10 | disposition home or self-care (01) ==
LOC: HO.HUSH 13:14
PROVIDERS: PCP Internal Medicine; Visit Provider Urology
DX: E11.69 Type 2 diabetes mellitus with other specified complication (principal); N52.1 Erectile dysfunction due to diseases classified elsewhere; E29.1 Testicular hypofunction
CPT/HCPCS: 99213

== ENCOUNTER → 2023-08-19 13:14 | Outpatient (BNVA) | payer OTHER, SELFPAY | PROVIDERS: PCP Internal Medicine; Visit Provider Urology ==

== ENCOUNTER 2023-09-16 07:23 | Outpatient (REF) | payer OTHER, SELFPAY ==
[2023-09-16 11:21] LABS: Alanine Aminotransferase 24 U/L (0-40); Anion Gap 13 (12-20); Aspartate Amino Transferase 20 U/L (5-37); Blood Urea Nitrogen 19 mg/dL (9-16); Calcium 9.3 mg/dL (8.4-10.2); Carbon Dioxide 23 mmol/L (22-29); Chloride 107 mmol/L (96-108); Cholesterol 118 mg/dL (<200); Estimated Glomerular Filt Rate > 60; Glucose Random 196 mg/dL (60-115); HDL Cholesterol 28 mg/dL (>40); LDL Cholesterol Calculated 59 mg/dL (<100); Potassium 4.3 mmol/L (3.3-5.1); Sodium 139 mmol/L (135-145); Triglycerides 155 mg/dL (<150)
[2023-09-16 11:46] LABS: Estimated Average Glucose 177 mg/dL; Hemoglobin A1c % 7.8 % (<6.0)
[2023-09-16 11:47] LABS: Microalbum/Creatinine Ratio Ur 8.9 ug/mg cr (<30)
== END 2023-09-16 07:24 | disposition home or self-care (01) ==
LOC: HO.HMGCLDS 07:23
PROVIDERS: PCP Nurse Practitioner Primary Care; Visit Provider Nurse Practitioner Primary Care
DX: E11.9 Type 2 diabetes mellitus without complications (principal); Z13.220 Encounter for screening for lipoid disorders
CPT/HCPCS: 36415; 80048; 80061; 82043; 82570; 83036; 84450; 84460

== ENCOUNTER 2023-09-18 09:00 | Outpatient (RCR) | payer OTHER, SELFPAY ==
--- NOTE | 2023-04-10 10:20 | MHC.PT.EP ---
[facility] [place] Office [place] [facility] [place] Office [address] Herminia Vargas [address] [phone] F: [phone] F: [phone] F: [phone] F: [phone] Physical Therapy Plan of Care Date of Evaluation: 04/10/23 Date of Surgery: 03/26/2023 Diagnosis: s/p RC repair 03/26/2023 Assessment: Patient is a 67 year old male presenting to PT s/p R RC repair on 03/26/2023. He presents today with impairments in pain, ROM, strength, posture. 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 Pt expresses [facility] goal of returning to PLOF, and is motivated to work towards this in PT. Clinical presentation today is most consistent with signs and sx associated with s/p R RC repair and pt will benefit from skilled PT 2 week x 20 weeks to address the following problems and impairments noted upon evaluation: pain, ROM, strength, posture. These problems limit the patient with the following functional activities: work, reaching, lifting, ADLs, driving. The prescribed treatment plan of care is medically necessary. Co-morbidities of T2DM, HTN were identified and taken into considerations of plan of care. Pt was educated on HEP, role of PT, prognosis, POC. Frequency and Duration: The patient will be seen 2 x week x 20 weeks Short Term Goals: Pt will demonstrate full elbow AROM in 3 weeks. Pt will demonstrate increased R shoulder ER to 45 deg at 45 deg abd in 4 weeks. Pt will demonstrate full PROM in 6 weeks. 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 Pt will demonstrate at least 4-/5 strength in 16 weeks for improved ability to complete ADLs. Pt will demonstrate at least 4/5 strength in 20 weeks for prepare to return to PLOF. Treatment Plan: Modalities to reduce pain, spasms and effusion. Manual therapy to restore motion and function. Therapeutic exercise to improve strength and flexibility. Neuromuscular re-education for posture and balance. Therapeutic activities to return to functional activities of daily living. Electronically signed by: Malia Pichardo, PT, DPT, ATC Please sign and return to therapist. Thank you for your referral.
--- NOTE | 2023-09-18 09:54 | MHC.PT.DC ---
[facility] [place] Office [place] Office [place] Office [address] Herminia Vargas [address] [phone] F: [phone] F: [phone] F: [phone] F: [phone] Physical Therapy Discharge Report Diagnosis: s/p RC repair 03/26/2023 Date of Surgery: 03/26/2023 Date of Evaluation: 04/10/23 Date of Discharge: 09/18/23 Treatments to Date: 39 Cancellations to Date: 1 No Shows to Date: 0 Discharge Status: Improved Function Independent with HEP Discharge Summary: 09/18/2023: Pt has made good progress since start of care. He is demonstrating improved strength and ROM overall although he is still tight with end range ROM. He does still compensate with shoulder shrug however this has not improved over the last several weeks despite cues and different exercises to help improve it. He is still making gains in strength which I expect to continue over the next several months as he works on his exercises at home. At this point he is independent in his exercises and skilled PT is no longer indicated as max benefits have been provided. His focus now needs to be on his HEP to maximize strength and end range ROM which I discussed with him. He is in agreement with d/c today. Electronically signed by: Malia Pichardo, PT, DPT, ATC Please sign and return to therapist. Thank you for your referral.
== END 2023-09-18 09:55 | disposition home or self-care (01) ==
LOC: HO.PTCHIC 09:00
PROVIDERS: PCP Internal Medicine; Visit Provider Physician Assistant
DX: M12.811 Other specific arthropathies, not elsewhere classified, right shoulder (principal); Z98.890 Other specified postprocedural states
CPT/HCPCS: 97110; 97140; 97161; 97530

== ENCOUNTER 2023-09-29 08:20 | Outpatient (AMB) | payer OTHER, SELFPAY ==
--- NOTE | 2023-09-29 08:27 | MHC.OFFVIS ---
Vital Signs 09/29/23 08:28 Height 5 ft 10 in Weight 212 lb BMI 30.4 Intake Visit Reasons: OV-Rt RTC repair 03/26/23-follow up Intake Note: Doni is a 68 year old male who presents today for a follow up of his right shoulder, s/p Right RTC 03/26/23. At his last visit he was to continue no lifting restrictions. Patient reports he is doing well. He has been working with PT for a while and has been lifting 3 pounds small weights. Allergies No Known Allergies [No Known Allergies*] Allergy (Verified 09/29/23 08:33) HPI HPI OV-Rt RTC repair 03/26/23-follow up: Details: Doni is a 68 year old male who presents today for a follow up of his right shoulder, s/p Right RTC 03/26/23. At his last visit he was to continue no lifting restrictions. Patient reports he is doing well. He has been working with PT for a while and has been lifting 3 pounds small weights. He has no pain and is happy with his progress. [facility] Medical History History of gout Essential hypertension Osteoarthritis involving multiple joints on both sides of body Mixed dyslipidemia Type 2 diabetes mellitus without complication, without long-term current use of insulin Surgical History S/P right rotator cuff repair (03/26/23) History of carpal tunnel release Hx of total knee replacement Family History Father No problems noted. Mother No problems noted. Sister Cervical cancer Uterine cancer Hypothyroidism Social History Housing: House Alcohol intake: current Patient Tobacco Use Status: Never used Tobacco e-Cigarette/Vaping Use: Never Used service: No Current occupational status: employed Current occupation: [employer], left hand dominant Cognitive needs: No Hearing needs: No Vision needs: Yes Physical Exam Vital Signs: BMI result Body Mass Index 30.4 Extrem Other: 25/75/120/hp 4/5 ec no pain Assessment & Plan Assessment & Plan (1) S/P rotator cuff repair: Code(s): Z98.890 - Other specified postprocedural states Category: Surgical Plan: 6 mo s/p large RTC tear doing well f/u 6 mo as needed no heavy lifting continue gentle progressive straightening as tolerated
[2023-09-29 08:28] VITALS: BMI 30.4
== END 2023-09-29 08:45 | disposition home or self-care (01) ==
PROVIDERS: PCP Internal Medicine; Visit Provider Orthopaedic Surgery
DX: S46.011D Strain of muscle(s) and tendon(s) of the rotator cuff of right shoulder, subsequent encounter (principal)
CPT/HCPCS: 99213

== ENCOUNTER → 2023-09-29 08:20 | Outpatient (BNVA) | payer OTHER, SELFPAY | PROVIDERS: PCP Internal Medicine; Visit Provider Orthopaedic Surgery ==

== ENCOUNTER 2023-11-14 06:49 | Outpatient (REF) | payer OTHER, SELFPAY ==
[2023-11-14 10:52] LABS: Estimated Average Glucose 174 mg/dL; Hemoglobin A1c % 7.7 % (<6.0)
[2023-11-14 11:09] LABS: Alanine Aminotransferase 23 U/L (0-40); Anion Gap 12 (12-20); Aspartate Amino Transferase 21 U/L (5-37); Blood Urea Nitrogen 19 mg/dL (9-16); Calcium 9.8 mg/dL (8.4-10.2); Carbon Dioxide 24 mmol/L (22-29); Chloride 106 mmol/L (96-108); Cholesterol 108 mg/dL (<200); Estimated Glomerular Filt Rate > 60; Glucose Fasting 207 mg/dL (60-99); HDL Cholesterol 30 mg/dL (>40); LDL Cholesterol Calculated 40 mg/dL (<100); Potassium 4.4 mmol/L (3.3-5.1); Sodium 138 mmol/L (135-145); Triglycerides 190 mg/dL (<150); Uric Acid 4.8 mg/dL (3.4-7.0)
[2023-11-14 11:27] LABS: Vitamin D 25-OH Total 60.8 ng/mL (>30)
[2023-11-14 12:08] LABS: Creatinine Urine 87.12 mg/dL
== END 2023-11-14 06:50 | disposition home or self-care (01) ==
LOC: HO.HMGCLDS 06:49
PROVIDERS: PCP Internal Medicine; Visit Provider Internal Medicine
DX: I10 Essential (primary) hypertension (principal); E78.2 Mixed hyperlipidemia; E11.9 Type 2 diabetes mellitus without complications; Z87.39 Personal history of other diseases of the musculoskeletal system and connective tissue
CPT/HCPCS: 36415; 80048; 80061; 82043; 82306; 82570; 83036; 84450; 84460; 84550

== ENCOUNTER 2023-11-18 13:25 | Outpatient (AMB) | payer OTHER, SELFPAY ==
--- NOTE | 2023-11-18 13:52 | A.OFFPC_ITS ---
Vital Signs 11/18/23 13:53 Height 5 ft 10 in Weight 218 lb BMI 31.3 BP 136/80 Blood Pressure Location Lt brachial Position Sitting Pulse 99 Pulse Source Pulse Oximeter Pulse Oximetry (%) 96 Oxygen Delivery Method Room Air Intake Visit Reasons: f/u labs Intake Note: Pt is here today for a follow up visit on labs. Allergies No Known Allergies [No Known Allergies*] Allergy (Verified 11/18/23 14:11) Medication List - Last Reconciled 11/18/23 by Frida Gage MD allopurinol 300 mg PO DAILY celecoxib (Celebrex) 200 mg PO BID 30 days cholecalciferol (vitamin D3) 50 mcg PO DAILY empagliflozin (Jardiance) 10 mg PO DAILY glyburide 10 mg (2 x 5 mg) PO BID 90 days lisinopril 20 mg PO DAILY metformin 1,000 mg PO BID 3 months rosuvastatin 5 mg PO Q OTHER DAY syringe with needle, safety (Monoject TB Safety Syringe) As directed tadalafil 10 mg PO DAILY 90 days testosterone cypionate (Depo-Testosterone) 80 mg (0.4 mL) subcut QWEEK 4 weeks Tobacco use date assessed: 11/18/23 Dental Screening Dental Screen Date: 07/01/23 HPI f/u labs HPI Details 68 year-old male with diabetes mellitus, hypertension, mixed dyslipidemia, with history of gout, here today for his follow-up. He is currently on Jardiance 10 mg daily, glyburide 10 mg per tablet taken 1 tablet twice a day with meals and metformin a 1000 mg taken 1 tablet twice a day with meals. However he has not really been exercising as much as he was prior to injuring his shoulder and admits to not being fully compliant with diet recommended. Hemoglobin A1c a latest fasting labs drawn well came back at 7.7% with an average glucose over the last 3 months running at 174 mg/dL. The rest of his labs which includes a fasting lipid panel, uric acid level basic metabolic panel, liver enzymes were all within normal limits except for elevated triglycerides. He is up-to-date with his eye exam, sees Dr. Nielsen yearly. Recently underwent right rotator cuff repair done 03/26/2023, and had physical therapy after surgery just recently completed it in 09/27/2023. Still having some pain and discomfort in right shoulder , and has been taking Celebrex 200 mg 1 capsule twice a day initially prescribed by his orthopedic surgeon. Patient however has been requesting refills from his surgeon but has not yet heard from them and would like to see if he can get her prescription refill for his celecoxib today [facility] Medical History (Updated 11/19/23 @ 01:24 by Frida Gage MD) History of gout Essential hypertension Osteoarthritis involving multiple joints on both sides of body Mixed dyslipidemia Type 2 diabetes mellitus without complication, without long-term current use of insulin Surgical History S/P right rotator cuff repair (03/26/23) History of carpal tunnel release Hx of total knee replacement Family History Father No problems noted. Mother No problems noted. Sister Cervical cancer Uterine cancer Hypothyroidism Social History Housing: House Alcohol intake: current Patient Tobacco Use Status: Never used Tobacco e-Cigarette/Vaping Use: Never Used service: No Current occupational status: employed Current occupation: [employer], left hand dominant Cognitive needs: No Hearing needs: No Vision needs: Yes Questionnaire Thrive Questionnaire Date Thrive assessed: 07/01/23 JUAN MIGUEL-7 AMB Questionnaire JUAN MIGUEL-7 Date JUAN MIGUEL - 7 assessed: 07/01/23 Source: Developed by Drs. Jorge A Vasquez, Nolvia Betts, Shar Cornejo and colleagues, with an educational carlos from [employer]. Review of Systems Const Denies fatigue, Denies fever(s), Denies headache(s) and Denies weakness Eyes Details: Sees Dr. Nielsen yearly Denies blurry vision ENT Reports Normal hearing present, Denies dizziness, Denies headache(s) and Denies nasal discharge Card Denies chest pain, Denies lightheadedness, Denies palpitations and Denies dyspnea Resp Denies cough, Denies dyspnea and Denies wheezing GI Denies abdominal pain, Denies change in bowel habits and Denies heartburn Denies dysuria and Denies urinary frequency Musc Details: Recurrent pain and stiffness in right shoulder joint Skin/Breast Denies lesions and Denies rash Neuro Reports Normal hearing present, Denies dizziness, Denies headache(s), Denies Sensory deficit (Neuro) and Denies weakness Psych Reports no additional complaints Endo Denies fatigue, Denies polydipsia, Denies polyuria and Denies palpitations Lei/Lymph Denies easy bruising Aller/Immun Denies seasonal rhinorrhea and Denies wheezing Physical exam (Primary Care) Vital Signs: Last Vital Signs Pulse 99 11/18/23 13:53 BP 136/80 11/18/23 13:53 Pulse Ox 96 11/18/23 13:53 Oxygen Delivery Method Room Air 11/18/23 13:53 BMI result Body Mass Index 31.3 Tobacco/Smoking Status: Tobacco use Status Tobacco use date assessed 11/18/23 11/18/23 13:55 Patient Tobacco Use Status Never used Tobacco 11/18/23 13:55 e-Cigarette/Vaping Use Never Used 11/18/23 13:53 Thrive Assessment: Date of Thrive Assessment Date Thrive assessed 07/01/23 11/18/23 13:53 Const General: no acute distress and alert Orientation/consciousness: patient oriented x3 HENMT Head: Yes normal to inspection Face and sinus: Yes face symmetric Eyes General: appearance normal, both eyes and all related structures Neck Neck: Yes full ROM and Yes no lymphadenopathy Resp Effort & Inspection: normal respiratory effort and able to speak in complete sentences Auscultation: clear to auscultation bilaterally Cardio Rate: regular rate Rhythm: regular rhythm Heart sounds: S1 normal heart sound present and S2 normal heart sound present GI Inspection: Yes normal to inspection Palpation (GI): Soft to palpation Auscultation: normal bowel sounds Back/Spine/Pelvis Back: No back tenderness Neuro General: patient oriented x3, gait normal, moves all extremities, no focal motor deficits and CN's II-XI intact bilaterally Cranial nerves: Yes Normal hearing present Cognition (Neuro): normal cognition Gait exam (Neuro): Normal gait present Sensory Exam: No Sensory deficit (Neuro) Extrem General: Yes full ROM (Both shoulder joint), Yes no joint enlargement, Yes no pedal edema and Yes normal gait Immunizations pneumoc 20-bertram conj-dip cr(PF) 0.5 mL IM syringe Performing Provider: Frida Gage MD Performing Location: [facility] Administered by: JANICE Mesa on 11/18/23 14:30 Dose Route Admin Location Dispensed Lot Number Expiration Date NDC [employer] 0.5 mL IM Left Deltoid 0.5 mL [id number] 11/06/24 [employer] VIS Given Date VIS Provided VIS Publication Date 11/18/23 Single Vaccine 21 Eligibility Eligibility Date Funding Source Not VFC Eligible 11/18/23 Private Results Reviewed Results Reviewed: Name: Doni Barnes Age/Sex: 68/M : 1955 Unit#: [id number] Attend Dr: Frida Gage MD Re11/14/23 Status: DEP REF Location: [facility] Disch: SPEC : [id number] LAUREN: 11/14/23 STATUS: COMP REQ : [id number] RECD: 11/14/23-[address]: Frida Gage MD COMP: 11/14/23 ENTERED: 11/14/[address]: ORDERED: Met Prof Fast, Uric, AST, ALT, Lipid Panel, Vitamin D 25-OH Test Result Flag Reference Sodium 138 135-145 mmol/L Potassium 4.4 3.3-5.1 mmol/L CL 106 96-108 mmol/L CO2 24 22-29 mmol/L Gap 12 12-20 BUN 19 H 9-16 mg/dL Creat 1.17 0.5-1.4 mg/dL EGFR > 60 NOTE: For -Bel[place] individuals, multiply the result by 1.210. Chronic Kidney Disease: Estimated GFR < 60 mL/min/1.73m2 Severe Kidney Disease: Estimated GFR < 15 mL/min/1.73m2 FBS 207 H 60-99 mg/dL A fasting glucose of 126 mg/dl or greater on more than one occasion is considered diagnostic of diabetes. Uric Acid 4.8 3.4-7.0 mg/dL CA 9.8 8.4-10.2 mg/dL AST (GOT) 21 5-37 U/L ALT (GPT) 23 0-40 U/L Triglyceride 190 H <150 mg/dL Desirable Triglyceride: less than 150 mg/dL Borderline High Triglyceride 150-199 mg/dL High Triglyceride: 200-499 mg/dL Very High Triglyceride: greater than or equal to 5OO mg/dL Cholesterol 108 <200 mg/dL Desirable Cholesterol: less than 200 mg/dL Borderline High Cholesterol: 200-239 mg/dL High Cholesterol: greater than 239 mg/dL LDL Calculated 40 <100 mg/dL Desirable LDL: less than 100 mg/dL Near Optimal/Above Optimal LDL: 110-129 mg/dL Borderline High LDL: 130-159 mg/dL High LDL: 160-189 mg/dL Very High LDL: greater than or equal to 190 mg/dL HDL 30 L >40 mg/dL Desirable HDL: greater than 40 mg/dL Note: This HDL assay may give artificially low results in patients with liver disease. Vit D 25-OH Tot 60.8 >30 ng/mL Health Based Reference Values* < 20 ng/mL Deficient 20-30 ng/mL Insufficient > 30 ng/mL Sufficient Name: Doni Barnes Age/Sex: 68/M : 1955 Unit#: [id number] Attend Dr: Frida Gage MD Re11/14/23 Status: DEP REF Location[facility] Disch: SPEC : [id number] LAUREN: 11/14/23 STATUS: COMP REQ : [id number] RECD: 11/14/[address]: Frida Gage MD COMP: 11/14/23 ENTERED: 11/14/23 [facility] DR: ORDERED: Hgb A1c Test Result Flag Reference A1c % 7.7 H <6.0 % Hemoglobin A1C Reference Range Adults: 4.8 - 6.0 % Non diabetic: < 6.0 % Goal: < 7.0 % Additional Action Suggested: > 8.0 % Note: Hemoglobin A1c results are invalid for patients with abnormal amounts of HbF. Blood transfusions may impact the HbA1c concentration in the patient sample. Est. Avg. Gluc 174 mg/dL eAG = Estimated average glucose which is %A1C expressed as average glucose, using the formula of the [id number] Average Glucose study (ADAG), Diabetes Care, Vol.31,#8, 2007 Assessment and Plan Assessment & Plan (1) Type 2 diabetes mellitus without complication, without long-term current use of insulin: Code(s): E11.9 - Type 2 diabetes mellitus without complications Plan: Hemoglobin A1c today at 7.7% diabetes control not at goal. Reinforced importance of following recommended diet and getting regular exercise patient states that he can now do some weights with his right arm. Continue with metformin, glyburide and increase dose of Jardiance to 25 mg daily in a.m. an hour before breakfast. Up-to-date with his diabetes retinopathy screening, sees Dr. Nielsen (2) History of gout: Code(s): Z87.39 - Personal history of other diseases of the musculoskeletal system and connective tissue Plan: Serum uric acid levels within normal limits, continue with allopurinol (3) Essential hypertension: Code(s): I10 - Essential (primary) hypertension Plan: Continue lisinopril 20 mg per tablet taken once a day. Reinforced importance of following a low sodium diet, getting regular exercise, and lowering stress levels. (4) Mixed dyslipidemia: Code(s): E78.2 - Mixed hyperlipidemia Plan: Reviewed recent fasting lipid profile with patient with levels at goal except for elevated triglycerides . Continue taking rosuvastatin 5 mg taken 1 tablet every other day , in addition to adherence to low-cholesterol diet and regular exercise, at least 30 minutes 3 to 4 times a week. Advised patient to make healthy food choices, eat more fruits, vegetables, whole grains, wild caught fish and low-fat dairy. Limit amount of meat and fried or fatty food products, as well as processed foods and fast foods. Follow-up scheduled with repeat fasting lipid panel in 3 months (5) Shoulder pain, right: Code(s): M25.511 - Pain in right shoulder Qualifiers: Chronicity: chronic Qualified Code(s): M25.511 - Pain in right shoulder; G89.29 - Other chronic pain Plan: Refill sent for celecoxib 200 mg per capsule to take 1 capsule twice a day as needed for severe pain. Continue doing exercises taught at physical therapy (6) Need for pneumococcal 20-valent conjugate vaccination: Code(s): Z23 - Encounter for immunization Plan: Prevnar 20 given today (7) S/P rotator cuff repair: Code(s): Z98.890 - Other specified postprocedural states Plan: Continue doing regular exercise taught at physical therapy, refill sent for celecoxib 200 mg per capsule to take 1 twice a day as needed for severe joint pain Orders: Orders Basic Metabolic Panel Fasting 02/08/24 E11.9 - Type 2 diabetes mellitus without complications, E78.2 - Mixed hyperlipidemia, I10 - Essential (primary) hypertension Microalbumin, Random (w Creat) 02/08/24 E11.9 - Type 2 diabetes mellitus without complications, E78.2 - Mixed hyperlipidemia, I10 - Essential (primary) hypertension Alanine Aminotransferase 02/08/24 E11.9 - Type 2 diabetes mellitus without complications, E78.2 - Mixed hyperlipidemia, I10 - Essential (primary) hypertension Aspartate Amino Transferase 02/08/24 E11.9 - Type 2 diabetes mellitus without complications, E78.2 - Mixed hyperlipidemia, I10 - Essential (primary) hypertension Lipid Panel 02/08/24 E11.9 - Type 2 diabetes mellitus without complications, E78.2 - Mixed hyperlipidemia, I10 - Essential (primary) hypertension Hemoglobin A1c 02/08/24 E11.9 - Type 2 diabetes mellitus without complications, E78.2 - Mixed hyperlipidemia, I10 - Essential (primary) hypertension Pneumococcal 20 Immunization 11/18/23 Z23 - Encounter for immunization Medications: Changed From empagliflozin (Jardiance) 10 mg PO DAILY 90 tabs 1RF To empagliflozin 25 mg PO DAILY 30 tabs 6RF Refilled celecoxib (Celebrex) 200 mg PO BID 30 days 60 caps 3RF Coding Level of Care Code Est Pt Level 4 (60043) Complex EM visit Add On G2211 Diagnoses Type 2 diabetes mellitus without complication, without long-term current use of insulin E11.9 History of gout Z87.39 Essential hypertension I10 Mixed dyslipidemia E78.2 Chronic right shoulder pain M25.511; G89.29 Chronicity: chronic Need for pneumococcal 20-valent conjugate vaccination Z23 S/P rotator cuff repair Z98.890
[2023-11-18 13:53] VITALS: BP 136/80; PULSE 99; O2SAT 96; BMI 31.3
== END 2023-11-18 14:26 | disposition home or self-care (01) ==
PROVIDERS: PCP Internal Medicine; Visit Provider Internal Medicine
DX: Z23 Encounter for immunization (principal)
CPT/HCPCS: 90471; 90677; 99214; G2211

== ENCOUNTER 2024-02-02 07:23 | Outpatient (REF) | payer OTHER, SELFPAY ==
[2024-02-02 10:19] LABS: Hematocrit 48.9 % (42.0-52.0); Hemoglobin 16.6 g/dl (14.0-18.0); Mean Corpuscular HGB Conc 33.9 g/dl (31.0-36.0); Mean Corpuscular Hemoglobin 28.6 pg (27.0-33.0); Mean Corpuscular Volume 84.2 fL (80.0-98.0); Mean Platelet Volume 11.2 fL (9.4-12.4); Platelet Count 141 X10*3/uL (160-400); Red Blood Count 5.81 X10*6/uL (4.60-5.80); Red Cell Distribution Width 13.6 % (11.0-16.0); White Blood Count 6.6 X10*3/uL (4.8-10.8)
[2024-02-02 11:32] LABS: Prostate Specific Antigen 0.75 ng/mL (<0.05-4.0)
[2024-02-06 15:13] LABS: Testosterone, Total 469 ng/dL (250-1100)
== END 2024-02-02 07:24 | disposition home or self-care (01) ==
LOC: HO.HMGCLDS 07:23
PROVIDERS: PCP Internal Medicine; Visit Provider Urology
DX: E29.1 Testicular hypofunction (principal); Z12.5 Encounter for screening for malignant neoplasm of prostate
CPT/HCPCS: 36415; 84153; 84403; 85027

== ENCOUNTER 2024-02-27 07:12 | Outpatient (REF) | payer OTHER, SELFPAY ==
[2024-02-27 10:26] LABS: Alanine Aminotransferase 26 U/L (0-40); Anion Gap 9 (12-20); Aspartate Amino Transferase 22 U/L (5-37); Blood Urea Nitrogen 14 mg/dL (9-16); Calcium 9.5 mg/dL (8.4-10.2); Carbon Dioxide 28 mmol/L (22-29); Chloride 106 mmol/L (96-108); Cholesterol 104 mg/dL (<200); Estimated Glomerular Filt Rate > 60; Glucose Fasting 133 mg/dL (60-99); HDL Cholesterol 29 mg/dL (>40); LDL Cholesterol Calculated 42 mg/dL (<100); Potassium 4.3 mmol/L (3.3-5.1); Sodium 139 mmol/L (135-145); Triglycerides 168 mg/dL (<150)
[2024-02-27 10:55] LABS: Creatinine Urine 105.57 mg/dL; Microalbum/Creatinine Ratio Ur 5.6 ug/mg cr (<30)
[2024-02-27 10:58] LABS: Estimated Average Glucose 174 mg/dL; Hemoglobin A1c % 7.7 % (<6.0)
== END 2024-02-27 07:13 | disposition home or self-care (01) ==
LOC: HO.HMGCLDS 07:12
PROVIDERS: PCP Internal Medicine; Visit Provider Internal Medicine
DX: E11.9 Type 2 diabetes mellitus without complications (principal); E78.2 Mixed hyperlipidemia; I10 Essential (primary) hypertension; M12.819 Other specific arthropathies, not elsewhere classified, unspecified shoulder
CPT/HCPCS: 36415; 80048; 80061; 82043; 82570; 83036; 84450; 84460

== ENCOUNTER 2024-03-04 13:15 | Outpatient (AMB) | payer OTHER, SELFPAY ==
[2024-03-04 13:49] VITALS: BP 138/68; PULSE 97; O2SAT 96; BMI 31.4
--- NOTE | 2024-03-04 13:49 | MHC.PC.OV ---
Vital Signs 03/04/24 13:49 Height 5 ft 10 in Weight 219 lb BMI 31.4 BP 138/68 Blood Pressure Location Lt brachial Position Sitting Pulse 97 Pulse Source Pulse Oximeter Pulse Oximetry (%) 96 Oxygen Delivery Method Room Air Intake Visit Reasons: f/u labs Intake Note: Pt is here today for his lab f/u Allergies No Known Allergies [No Known Allergies*] Allergy (Verified 03/07/24 16:10) Medication List - Last Reconciled 03/07/24 by Frida Gage MD allopurinol 300 mg PO DAILY celecoxib (Celebrex) 200 mg PO BID 30 days cholecalciferol (vitamin D3) 50 mcg PO DAILY empagliflozin 25 mg PO DAILY glyburide 10 mg (2 x 5 mg) PO BID 90 days lisinopril 20 mg PO DAILY metformin 1,000 mg PO BID 3 months rosuvastatin 5 mg PO Q OTHER DAY syringe with needle, safety (Monoject TB Safety Syringe) As directed tadalafil 10 mg PO DAILY 90 days testosterone cypionate (Depo-Testosterone) 80 mg (0.4 mL) subcut QWEEK 4 weeks Tobacco use date assessed: 03/04/24 Fall risk assessment: No Falls in past year Last assessed Fall Risk: 03/04/24 Dental Screening Dental Screen Date: 03/04/24 Did you have a dental visit in the last 12 months?: Yes Did you have a dental problem in the last 6 months where you did not have access to dental care?: No Was dental information given to patient?: Patient has dentist HPI f/u labs HPI Details 68-year-old male with history hypogonadism, with erectile dysfunction, osteoarthritis, diabetes mellitus and hyperlipidemia, as well as hypertension here today for follow-up. Had recent fasting labs done which showed hemoglobin A1c at 7.7%. Patient states that he has been taking his medications as directed, compliant with diet but unable to exercise much due to intermittent episodes of dizziness usually with sudden changes in position and getting up from a lying to standing position. This has been present now for at least a month. Taking meclizine which affords only temporary relief. His other labs showed lipids within normal limits except for low HDL cholesterol. Currently being followed by Dr. Lopez for his hypogonadism and erectile dysfunction. [facility] Medical History (Updated 03/07/24 @ 16:19 by Frida Gage MD) Benign positional vertigo History of gout Essential hypertension Osteoarthritis involving multiple joints on both sides of body Mixed dyslipidemia Type 2 diabetes mellitus without complication, without long-term current use of insulin Surgical History S/P right rotator cuff repair (03/26/23) History of carpal tunnel release Hx of total knee replacement Family History Father No problems noted. Mother No problems noted. Sister Cervical cancer Uterine cancer Hypothyroidism Social History Housing: House Alcohol intake: current Patient Tobacco Use Status: Never used Tobacco e-Cigarette/Vaping Use: Never Used service: No Current occupational status: employed Current occupation: [employer], left hand dominant Cognitive needs: No Hearing needs: No Vision needs: Yes Questionnaire PHQ-9 Over the last 2 weeks, how often have you been bothered by any of the following problems? 1. Little interest or pleasure in doing things: not at all 2. Feeling down, depressed, or hopeless: not at all 3. Trouble falling or staying asleep, or sleeping too much: not at all 4. Feeling tired or having little energy: not at all 5. Poor appetite or overeating: not at all 6. Feeling bad about yourself - or that you are a failure or have let yourself or your family down: not at all 7. Trouble concentrating on things, such as reading the newspaper or watching television: not at all 8. Moving or speaking so slowly that other people could have noticed. Or the opposite - being so fidgety or restless that you have been moving around a lot more than usual: not at all 9. Thoughts that you would be better off or of hurting yourself in some way: not at all Total score: 0 Depression Screening Interpretation: Negative Depression Screening Done: Yes 29065 - PHQ-9 Billing: Yes Source: Developed by Drs. Jorge A Vasquez, Nolvia Betts, Shar Cornejo and colleagues, with an educational carlos from [employer]. Thrive Questionnaire Date Thrive assessed: 07/01/23 I am a: Patient What is your living situation today?: I have a steady place to live Within the past 12 months, did the food you bought not last and you didn't have the money to get more?: I choose not to answer this question Within the past 12 months, did you worry whether your food would run out before you got money to buy more?: I choose not to answer this question Do you have trouble paying for medicines?: No Do you have trouble getting transportation to medical appointments?: No Do you have trouble paying your heating and electricity bill?: No Do you have trouble taking care of your child, family member or friend?: No Do you have trouble with day-to-day activities such as bathing, preparing meals, shopping, managing finances, etc.?: No Are you interested in more education?: No Please select the resources that you would like help with: None Currently or been in a relationship where the following occur: I choose not to answer THRIVE Score: 0 AUDIT C Alcohol Use Questionnaire (AUDIT-C) 1. How often do you have a drink containing alcohol?: Monthly or less 2. How many drinks containing alcohol do you have on a typical day when you are drinking?: 1 or 2 3. How often do you have six or more drinks on one occasion?: Never Total Score: 1 JUAN MIGUEL-7 AMB Questionnaire JUAN MIGUEL-7 Date JUAN MIGUEL - 7 assessed: 07/01/23 Feeling nervous, anxious, or on edge: 0 = Not at all Not being able to stop or control worryin = Not at all Worrying too much about different things: 0 = Not at all Trouble relaxin = Not at all Being so restless that it is hard to sit still: 0 = Not at all Becoming easily annoyed or irritable: 0 = Not at all Feeling afraid as if something awful might happen: 0 = Not at all Total JUAN MIGUEL-7 score (0-4 normal; 5-9 mild; 10-14 moderate; 15-21 severe): 0 Source: Developed by Drs. Jorge A Vasquez, Nolvia Betts, Shar Cornejo and colleagues, with an educational carlos from [employer], [employer]. Review of Systems Const Denies fatigue, Denies fever(s), Denies headache(s) and Denies weakness Eyes Details: Sees Dr. Hulseberg yearly Denies blurry vision ENT Reports Normal hearing present, Denies dizziness, Denies headache(s) and Denies nasal discharge Card Denies chest pain, Denies lightheadedness, Denies palpitations and Denies dyspnea Resp Denies cough, Denies dyspnea and Denies wheezing GI Denies abdominal pain, Denies change in bowel habits and Denies heartburn Denies dysuria and Denies urinary frequency Skin/Breast Denies lesions and Denies rash Neuro Reports Normal hearing present, Denies dizziness, Denies headache(s), Denies Sensory deficit (Neuro) and Denies weakness Psych Reports no additional complaints Endo Denies fatigue, Denies polydipsia, Denies polyuria and Denies palpitations Lei/Lymph Denies easy bruising Aller/Immun Denies seasonal rhinorrhea and Denies wheezing Physical exam (Primary Care) Vital Signs: Last Vital Signs Pulse 97 03/04/24 13:49 BP 138/68 03/04/24 13:49 Pulse Ox 96 03/04/24 13:49 Oxygen Delivery Method Room Air 03/04/24 13:49 BMI result Body Mass Index 31.4 Tobacco/Smoking Status: Tobacco use Status Tobacco use date assessed 03/04/24 03/04/24 13:52 Patient Tobacco Use Status Never used Tobacco 03/04/24 13:52 e-Cigarette/Vaping Use Never Used 03/04/24 13:52 PHQ-9: PHQ-9 Score PHQ-9: Total score 0 03/04/24 14:19 Depression Screening Interpretation: Negative Thrive Assessment: Date of Thrive Assessment Date Thrive assessed 07/01/23 03/04/24 13:52 Currently or been in a relationship where the following occur: I choose not to answer Const General: no acute distress and alert Orientation/consciousness: patient oriented x3 HENMT Head: Yes normal to inspection Face and sinus: Yes face symmetric Eyes Other: No nystagmus elicited General: appearance normal, both eyes and all related structures Neck Neck: Yes full ROM and Yes no lymphadenopathy Resp Effort & Inspection: normal respiratory effort and able to speak in complete sentences Auscultation: clear to auscultation bilaterally Cardio Rate: regular rate Rhythm: regular rhythm Heart sounds: S1 normal heart sound present and S2 normal heart sound present GI Inspection: Yes normal to inspection Palpation (GI): Soft to palpation Auscultation: normal bowel sounds Back/Spine/Pelvis Back: No back tenderness Neuro Other: Patient experienced dizziness when asked to get up from supine to sitting position quick, and on turning his head from [id number] or looking upwards General: patient oriented x3, gait normal, moves all extremities, no focal motor deficits and CN's II-XI intact bilaterally Cranial nerves: Yes Normal hearing present Cognition (Neuro): normal cognition Gait exam (Neuro): Normal gait present Sensory Exam: No Sensory deficit (Neuro) Extrem General: Yes full ROM (Both shoulder joint), Yes no joint enlargement, Yes no pedal edema and Yes normal gait Psych Appearance: grossly normal and well kempt Mental Status: mental status grossly normal Speech and movement: Normal speech and movement present Affect: normal affect Results Reviewed Results Reviewed: Name: Doni Barnes Age/Sex: 68/M : 1955 Unit#: [id number] Attend Dr: Marek Lopez MD Re02/02/24 Status: DEP REF Location: [facility] Disch: SPEC : [id number] LAUREN: 02/02/24 STATUS: COMP REQ : [id number] RECD: 02/02/[address]: Marek Lopez MD COMP: 02/02/24 ENTERED: 02/02/[address]: Frida Gage MD ORDERED: CBC No Diff Test Result Flag Reference WBC 6.6 4.8-10.8 X10*3/uL RBC 5.81 H 4.60-5.80 X10*6/uL HGB 16.6 14.0-18.0 g/dl HCT 48.9 42.0-52.0 % MCV 84.2 80.0-98.0 fL MCH 28.6 27.0-33.0 pg MCHC 33.9 31.0-36.0 g/dl RDW 13.6 11.0-16.0 % PLT 141 L 160-400 X10*3/uL MPV 11.2 9.4-12.4 fL NRBC Pct Auto 0.0 0.0-0.2 /100WBC NRBC Abs Auto 0.000 0.0-0.012 X10*3/uL Name: Doni Barnes Age/Sex: 68/M : 1955 Unit#: [id number] Attend Dr: Frida Gage MD Re02/27/24 Status: DEP REF Location: [facility] Disch: SPEC : [id number] LAUREN: 02/27/24 STATUS: COMP REQ : [id number] RECD: 02/27/[address]: Frida Gage MD COMP: 02/27/24 ENTERED: 02/27/[address] [facility] [address]: ORDERED: Met Prof Fast, AST, ALT, Lipid Panel Test Result Flag Reference Sodium 139 135-145 mmol/L Potassium 4.3 3.3-5.1 mmol/L CL 106 96-108 mmol/L CO2 28 22-29 mmol/L Gap 9 L 12-20 BUN 14 9-16 mg/dL Creat 0.91 0.5-1.4 mg/dL EGFR > 60 NOTE: For -Maltese individuals, multiply the result by 1.210. Chronic Kidney Disease: Estimated GFR < 60 mL/min/1.73m2 Severe Kidney Disease: Estimated GFR < 15 mL/min/1.73m2 FBS 133 H 60-99 mg/dL A fasting glucose of 126 mg/dl or greater on more than one occasion is considered diagnostic of diabetes. CA 9.5 8.4-10.2 mg/dL AST (GOT) 22 5-37 U/L ALT (GPT) 26 0-40 U/L Triglyceride 168 H <150 mg/dL Desirable Triglyceride: less than 150 mg/dL Borderline High Triglyceride 150-199 mg/dL High Triglyceride: 200-499 mg/dL Very High Triglyceride: greater than or equal to 5OO mg/dL Cholesterol 104 <200 mg/dL Desirable Cholesterol: less than 200 mg/dL Borderline High Cholesterol: 200-239 mg/dL High Cholesterol: greater than 239 mg/dL LDL Calculated 42 <100 mg/dL Desirable LDL: less than 100 mg/dL Near Optimal/Above Optimal LDL: 110-129 mg/dL Borderline High LDL: 130-159 mg/dL High LDL: 160-189 mg/dL Very High LDL: greater than or equal to 190 mg/dL HDL 29 L >40 mg/dL Desirable HDL: greater than 40 mg/dL Note: This HDL assay may give artificially low results in patients with liver disease. Laboratory Tests 02/27/24 07:15 Estimat Average Glucose 174 Hemoglobin A1c % 7.7 H Assessment and Plan Assessment & Plan (1) Type 2 diabetes mellitus without complication, without long-term current use of insulin: Code(s): E11.9 - Type 2 diabetes mellitus without complications Plan: Recent lab results reviewed with patient, with sugar and hemoglobin A1c not at goal with hemoglobin A1c at 7.7%. Will continue on present treatment, continue to check fasting blood sugar at home, maintain log and bring to next appointment for review. Reinforced diabetic diet and regular exercise with patient. Counseled regarding importance of yearly diabetes retinopathy screening. Patient advised to inspect feet daily, for any signs of injury, callus or infection. Compliance with diet and regular exercise again stressed. Blood pressure goal is less than 130/80, goal LDL is less than 100 and goal hemoglobin A1c is less than 7% follow-up appointment made in-4--months, after fasting labs done. (2) Benign positional vertigo: Code(s): H81.10 - Benign paroxysmal vertigo, unspecified ear Qualifiers: Laterality: bilateral Qualified Code(s): H81.13 - Benign paroxysmal vertigo, bilateral Plan: Referred to physical therapy /vestibular rehabilitation for evaluation and treatment of possible benign positional vertigo (3) Mixed dyslipidemia: Code(s): E78.2 - Mixed hyperlipidemia Plan: Reviewed recent fasting lipid profile with patient with levels within normal limits except for low HDL cholesterol . Continue rosuvastatin 5 mg every other day , in addition to adherence to low-cholesterol diet and regular exercise, at least 30 minutes 3 to 4 times a week. Advised patient to make healthy food choices, eat more fruits, vegetables, whole grains, wild caught fish and low-fat dairy. Limit amount of meat and fried or fatty food products, as well as processed foods and fast foods. Follow-up scheduled with repeat fasting lipid panel in 4 months. (4) Hypogonadism in male: Code(s): E29.1 - Testicular hypofunction Plan: Followed by Dr. Lopez (5) Osteoarthritis involving multiple joints on both sides of body: Code(s): M15.9 - Polyosteoarthritis, unspecified Plan: Currently taking celecoxib 200 mg 1 tablet twice a day as needed (6) Essential hypertension: Code(s): I10 - Essential (primary) hypertension Plan: Continue lisinopril 20 mg daily. Reinforced importance of following a low sodium diet, getting regular exercise, and lowering stress levels. (7) Erectile dysfunction associated with type 2 diabetes mellitus: Code(s): E11.69 - Type 2 diabetes mellitus with other specified complication; N52.1 - Erectile dysfunction due to diseases classified elsewhere Plan: Followed by Dr. Lopez currently on tadalafil Orders: Orders Hemoglobin A1c 06/09/24 E11.69 - Type 2 diabetes mellitus with other specified complication, E11.9 - Type 2 diabetes mellitus without complications, E29.1 - Testicular hypofunction, E78.2 - Mixed hyperlipidemia, H81.10 - Benign paroxysmal vertigo, unspecified ear, I10 - Essential (primary) hypertension, M15.9 - Polyosteoarthritis, unspecified, N52.1 - Erectile dysfunction due to diseases classified elsewhere Lipid Panel 06/09/24 E11.69 - Type 2 diabetes mellitus with other specified complication, E11.9 - Type 2 diabetes mellitus without complications, E29.1 - Testicular hypofunction, E78.2 - Mixed hyperlipidemia, H81.10 - Benign paroxysmal vertigo, unspecified ear, I10 - Essential (primary) hypertension, M15.9 - Polyosteoarthritis, unspecified, N52.1 - Erectile dysfunction due to diseases classified elsewhere Microalbumin, Random (w Creat) 06/09/24 E11.69 - Type 2 diabetes mellitus with other specified complication, E11.9 - Type 2 diabetes mellitus without complications, E29.1 - Testicular hypofunction, E78.2 - Mixed hyperlipidemia, H81.10 - Benign paroxysmal vertigo, unspecified ear, I10 - Essential (primary) hypertension, M15.9 - Polyosteoarthritis, unspecified, N52.1 - Erectile dysfunction due to diseases classified elsewhere Basic Metabolic Panel Fasting 06/09/24 E11.69 - Type 2 diabetes mellitus with other specified complication, E11.9 - Type 2 diabetes mellitus without complications, E29.1 - Testicular hypofunction, E78.2 - Mixed hyperlipidemia, H81.10 - Benign paroxysmal vertigo, unspecified ear, I10 - Essential (primary) hypertension, M15.9 - Polyosteoarthritis, unspecified, N52.1 - Erectile dysfunction due to diseases classified elsewhere Alanine Aminotransferase 06/09/24 E11.69 - Type 2 diabetes mellitus with other specified complication, E11.9 - Type 2 diabetes mellitus without complications, E29.1 - Testicular hypofunction, E78.2 - Mixed hyperlipidemia, H81.10 - Benign paroxysmal vertigo, unspecified ear, I10 - Essential (primary) hypertension, M15.9 - Polyosteoarthritis, unspecified, N52.1 - Erectile dysfunction due to diseases classified elsewhere PT Evaluation and Treatment 03/04/24 H81.10 - Benign paroxysmal vertigo, unspecified ear Aspartate Amino Transferase 06/09/24 E11.69 - Type 2 diabetes mellitus with other specified complication, E11.9 - Type 2 diabetes mellitus without complications, E29.1 - Testicular hypofunction, E78.2 - Mixed hyperlipidemia, H81.10 - Benign paroxysmal vertigo, unspecified ear, I10 - Essential (primary) hypertension, M15.9 - Polyosteoarthritis, unspecified, N52.1 - Erectile dysfunction due to diseases classified elsewhere Coding Level of Care Code Est Pt Level 4 (47595) Complex EM visit Add On G2211 Diagnoses Type 2 diabetes mellitus without complication, without long-term current use of insulin E11.9 Benign paroxysmal positional vertigo due to bilateral vestibular disorder H81.13 Laterality: bilateral Mixed dyslipidemia E78.2 Hypogonadism in male E29.1 Osteoarthritis involving multiple joints on both sides of body M15.9 Essential hypertension I10 Erectile dysfunction associated with type 2 diabetes mellitus E11.69; N52.1
== END 2024-03-04 14:33 | disposition home or self-care (01) ==
PROVIDERS: PCP Internal Medicine; Visit Provider Internal Medicine
DX: E11.9 Type 2 diabetes mellitus without complications (principal); E11.69 Type 2 diabetes mellitus with other specified complication; H81.13 Benign paroxysmal vertigo, bilateral; I10 Essential (primary) hypertension; E29.1 Testicular hypofunction; M15.9 Polyosteoarthritis, unspecified; N52.1 Erectile dysfunction due to diseases classified elsewhere

== ENCOUNTER → 2024-03-04 13:15 | Outpatient (BNVA) | payer OTHER, SELFPAY | PROVIDERS: PCP Internal Medicine; Visit Provider Internal Medicine | DX: E11.69 Type 2 diabetes mellitus with other specified complication (principal); N52.1 Erectile dysfunction due to diseases classified elsewhere; H81.13 Benign paroxysmal vertigo, bilateral; E78.2 Mixed hyperlipidemia; E29.1 Testicular hypofunction; I10 Essential (primary) hypertension; M15.9 Polyosteoarthritis, unspecified; Z79.899 Other long term (current) drug therapy | CPT/HCPCS: 96127 ==

== ENCOUNTER 2024-04-06 07:00 | Outpatient (RCR) | payer OTHER, SELFPAY ==
[2024-03-18 10:22] VITALS: BP 118/70; PULSE 89
--- NOTE | 2024-03-18 11:25 | MHC.PT.EP ---
[facility] [place] Office [place] Office [place] Office [address] Herminia Vargas [address] [phone] F: [phone] F: [phone] F: [phone] F: [phone] Physical Therapy Plan of Care Date of Evaluation: 03/18/24 Date of Surgery: NA Diagnosis: Benign paroxysmal vertigo, unspecified ear Assessment: Doni is a 68 year old male who is referred to PT for BPPV . He reports of having vertigo for 6 weeks. He started Mclezine a few weeks back and has had less symptoms of dizziness with this. On PT examination he presented with intact saccades, smooth pursuit, intact visual tracking, negative DVA, and negative for head thrust. He was positive for BPPV in [facility]. He lives with his family and is independent with all ADLS. 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 He enjoys bowling but has not been able to bowl due to dizziness. He would benefit from skilled PT to address the aforementioned impairments and improve tolerance to functional activities. Frequency and Duration: The patient will be seen 2/week for 4 weeks Short Term Goals: Group Home Goals: Patient to be educated on symptoms and indications to return to therapy when needed min 4 weeks. Pt will be negative for nystagmus or reports of vertigo in all diagnostic positions bilaterally to resolution of BPPV in 4 weeks. Patient to be able to functionally move in all planes and directions without provocation of dizziness to show return to PLOF in 4 weeks. Treatment Plan: Modalities to reduce pain, spasms and effusion. Manual therapy to restore motion and function. Therapeutic exercise to improve strength and flexibility. Neuromuscular re-education for posture and balance. Therapeutic activities to return to functional activities of daily living. Electronically signed by: Joceline Walker PT DPT Please sign and return to therapist. Thank you for your referral.
--- NOTE | 2024-05-20 10:30 | MHC.PT.DC ---
[facility] [place] Office [place] [facility] [place] [facility] [address] [phone] F: [phone] F: [phone] F: [phone] F: [phone] Physical Therapy Discharge Report Diagnosis: Benign paroxysmal vertigo, unspecified ear Date of Surgery: NA Date of Evaluation: 03/18/24 Date of Discharge: 05/20/24 Treatments to Date: 3 Cancellations to Date: 0 No Shows to Date: 0 Discharge Status: Achieved Goals Improved Function Independent with HEP Discharge Summary: Doni has had no symptoms of vertigo in over a month. He is therefore being d/c from PT. Electronically signed by: Joceline Walker PT DPT Please sign and return to therapist. Thank you for your referral.
== END 2024-05-20 10:30 | disposition home or self-care (01) ==
LOC: HO.PT 07:00
PROVIDERS: PCP Internal Medicine; Visit Provider Internal Medicine
DX: H81.10 Benign paroxysmal vertigo, unspecified ear (principal)
CPT/HCPCS: 95992; 97112; 97140; 97161; 97535

== ENCOUNTER 2024-04-07 15:52 | Outpatient (AMB) | payer OTHER, SELFPAY ==
--- NOTE | 2024-04-07 15:53 | MHC.OFFVIS ---
Intake Visit Reasons: 6m/PSA/Testosterone(set) Intake Note: Patient is present for PSA/Testosterone follow up Urology Med: Testosterone, Tadalafil Antibiotic Allergy:None Blood Thinner: None Recent LABS: 02/02/2024 PSA: 0.75 TESTOSTERONE: 469 Hemoglobin A1C: 02/27/24 7.7 Freight Loading Supervisor Required: No Allergies No Known Allergies [No Known Allergies*] Allergy (Verified 04/07/24 15:54) Medication List - Last Reconciled 04/07/24 by Marek Lopez MD allopurinol 300 mg PO DAILY celecoxib (Celebrex) 200 mg PO BID 30 days cholecalciferol (vitamin D3) 50 mcg PO DAILY empagliflozin 25 mg PO DAILY glyburide 10 mg (2 x 5 mg) PO BID 90 days lisinopril 20 mg PO DAILY metformin 1,000 mg PO BID 3 months rosuvastatin 5 mg PO Q OTHER DAY syringe with needle, safety (Monoject TB Safety Syringe) As directed tadalafil 10 mg PO DAILY 90 days testosterone cypionate (Depo-Testosterone) 100 mg (0.5 mL) subcut QWEEK 4 weeks HPI Comments Details: Doni is a very pleasant male. He is seen for the following urologic conditions - erectile dysfunction in setting of diabetes - hypogonadism Telemedicine evaluation 15 minute consultation [employer] shannan Video attempted T470. Would increase to 0.5 cc subcutaneous weekly Lab work stable Primary issue is erectile dysfunction Good response to maximize of medications with 10 mg daily tadalafil and 20 mg p.r.n. demand 6 month follow-up Hypogonadism: He presents today for further evaluation and followup of his hypogonadism - Current therapy 0.4 cc subcutaneous weekly Fri injection/Lab Friday Initial symptoms include erectile dysfunction Yes decreased libido Yes The onset of symptoms has been gradual. Associate conditions include obstructive sleep apnea No CAD No diabetes Yes dyslipidemia Yes hypertension Yes Laboratory results 11/25 , baseline T 200 Free T 44 12/25 T 207, FSH 8.6, 02/25 T 130, 05/27 T 175, 09/27 T 387, PSA 0.6, 04/29 T 350 P 0.5, 11/28 T 300 0.46 48, 04/30 396 0.8, 12/29 327 0.58 47, 01/30 470 0.8 - HBA1c - 08/29 7.2% Therapeutic plan 6 month follow-up Erectile dysfunction: Increased to 10 mg daily with a escalating dose on demand Symptoms have been present for/since gradual since 2017. Current treatment includes 10 mg daily Cialis plus Cialis 20 mg Treatment side effects include none. Prior therapies include oral medications. At this time he experiences erections are partial and adequate for vaginal penetration, that undergo rapid detumesence after penetration, BARI 8-11 Moderate ED. Nocturnal erections do not occur. Currently they are in a stable relationship. Associated problems hypertension Yes diabetes Yes dyslipidemia Yes Overall he is not satisfied with the current management. Therapeutic plan includes Escalating oral doses [facility] Medical History (Updated 03/07/24 @ 16:19 by Frida Gage MD) Benign positional vertigo History of gout Essential hypertension Osteoarthritis involving multiple joints on both sides of body Mixed dyslipidemia Type 2 diabetes mellitus without complication, without long-term current use of insulin Surgical History S/P right rotator cuff repair (03/26/23) History of carpal tunnel release Hx of total knee replacement Family History Father No problems noted. Mother No problems noted. Sister Cervical cancer Uterine cancer Hypothyroidism Social History Housing: House Alcohol intake: current Patient Tobacco Use Status: Never used Tobacco e-Cigarette/Vaping Use: Never Used service: No Current occupational status: employed Current occupation: [employer], left hand dominant Cognitive needs: No Hearing needs: No Vision needs: Yes Review of Systems Const All systems reviewed & are unremarkable except as noted in HPI and below Reports no additional complaints Resp Reports no additional complaints GI Reports no additional complaints Reports as per HPI Musc Reports no additional complaints Physical Exam Telemedicine evaluation Appropriate responses Regular breathing rate and rhythm HEENT Head: Yes normal to inspection Ears: hearing grossly normal bilaterally Eyes General: appearance normal, both eyes and all related structures Neck Neck: Yes normal visual inspection Chest Chest palpation & inspection: normal inspection of the chest Resp Effort & Inspection: normal respiratory effort and able to speak in complete sentences Telehealth Telehealth Telehealth Platform: [facility] Location of provider rendering services: practice address Location of patient: address on file Patient Identification confirmed using: Name, : Yes Telehealth method: video Patient verbally consented to treatment: Yes Patient verbally consented to billing insurance company: Yes Patient informed of any privacy concerns related to visit: Yes Minutes spent on Phone/Video with Pt.: 15 Assessment & Plan Assessment & Plan (1) Erectile dysfunction associated with type 2 diabetes mellitus: Code(s): E11.69 - Type 2 diabetes mellitus with other specified complication; N52.1 - Erectile dysfunction due to diseases classified elsewhere Category: Medical (2) Hypogonadism in male: Code(s): E29.1 - Testicular hypofunction Category: Medical Plan Six-month follow-up lab work office Medications: Changed From testosterone cypionate (Depo-Testosterone) 80 mg (0.4 mL) subcut QWEEK 4 weeks 2 mL 5RF E29.1 - Testicular hypofunction To testosterone cypionate (Depo-Testosterone) 100 mg (0.5 mL) subcut QWEEK 4 weeks 2 mL 5RF E29.1 - Testicular hypofunction Patient Instructions: Imaging studies, laboratory and physical exam results were discussed and reviewed in detail. No major barriers to patient understanding were identified. An opportunity to ask questions regarding the treatment plan was provided. All questions were answered. The patient expressed understanding and agreement with the above treatment plan. The patient is aware they should contact our office by phone for worsening of their current condition or the appearance of new urologic symptoms. Compliance is encouraged with any medications and followup testing that is ordered. It is a privilege to participate in the urologic care of your patient. If you have any questions or concerns regarding treatment for the above conditions, or other urologic issues, please do not hesitate to contact me. The office telephone contact is [phone]. This note is constructed using voice recognition software. While every effort has been made to ensure accuracy field agronomist errors may have been included. Yours sincerely, Dr Marek Lopez MD, [facility] - Urology Providers of Expert, Compassionate Care for the Genitourinary System Coding Level of Care Code Tele Est Pt Level 4 (47793) Diagnoses Erectile dysfunction associated with type 2 diabetes mellitus E11.69; N52.1 Hypogonadism in male E29.1
== END 2024-04-07 16:24 | disposition home or self-care (01) ==
LOC: HO.HUSH 15:52
PROVIDERS: PCP Internal Medicine; Visit Provider Urology
DX: E11.69 Type 2 diabetes mellitus with other specified complication (principal); N52.1 Erectile dysfunction due to diseases classified elsewhere; E29.1 Testicular hypofunction
CPT/HCPCS: 99214

== ENCOUNTER → 2024-04-07 15:52 | Outpatient (BNVA) | payer OTHER, SELFPAY | PROVIDERS: PCP Internal Medicine; Visit Provider Urology ==

== ENCOUNTER 2024-07-08 07:21 | Outpatient (REF) | payer OTHER, SELFPAY ==
[2024-07-08 10:42] LABS: Estimated Average Glucose 186 mg/dL; Hemoglobin A1C 295.4967 umol/L; Hemoglobin A1c % 8.1 % (<6.0); Total Hemoglobin (HGBA1C) 4534.0398 umol/L
[2024-07-08 10:47] LABS: Alanine Aminotransferase 36 U/L (0-40); Anion Gap 15 (12-20); Aspartate Amino Transferase 31 U/L (5-37); Blood Urea Nitrogen 18 mg/dL (9-16); Calcium 9.5 mg/dL (8.4-10.2); Carbon Dioxide 23 mmol/L (22-29); Chloride 104 mmol/L (96-108); Cholesterol 106 mg/dL (<200); Estimated Glomerular Filt Rate > 60; Glucose Fasting 178 mg/dL (60-99); HDL Cholesterol 24 mg/dL (>40); LDL Cholesterol Calculated 41 mg/dL (<100); Potassium 4.2 mmol/L (3.3-5.1); Sodium 138 mmol/L (135-145); Triglycerides 206 mg/dL (<150)
[2024-07-08 10:49] LABS: Creatinine Urine 81.52 mg/dL; Microalbum/Creatinine Ratio Ur 6.1 ug/mg cr (<30)
== END 2024-07-08 07:22 | disposition home or self-care (01) ==
LOC: HO.HMGCLDS 07:21
PROVIDERS: PCP Internal Medicine; Visit Provider Internal Medicine
DX: E11.69 Type 2 diabetes mellitus with other specified complication (principal); N52.1 Erectile dysfunction due to diseases classified elsewhere; I10 Essential (primary) hypertension; M15.9 Polyosteoarthritis, unspecified; E78.2 Mixed hyperlipidemia; E11.9 Type 2 diabetes mellitus without complications; H81.10 Benign paroxysmal vertigo, unspecified ear
CPT/HCPCS: 36415; 80048; 80061; 82043; 82570; 83036; 84450; 84460

== ENCOUNTER 2024-07-12 10:48 | Outpatient (AMB) | payer OTHER, SELFPAY ==
[2024-07-12 11:45] VITALS: BP 125/80; PULSE 76; TEMP 36.7; O2SAT 98; BMI 31.6
--- NOTE | 2024-07-12 11:45 | A.OFFPC_ITS ---
Vital Signs 07/12/24 11:45 Height 5 ft 10 in Weight 220 lb BMI 31.6 BP 125/80 Blood Pressure Location Lt brachial Position Sitting Pulse 76 Pulse Source Pulse Oximeter Temp 98.0 F Temp Source Oral Pulse Oximetry (%) 98 Oxygen Delivery Method Room Air Intake Visit Reasons: Annual PE Intake Note: Pt is here today for his PE: Last colonoscopy 03/23/18 Allergies No Known Allergies [No Known Allergies*] Allergy (Verified 07/12/24 12:01) Medication List - Last Reconciled 07/12/24 by Frida Gage MD allopurinol 300 mg PO DAILY celecoxib (Celebrex) 200 mg PO BID 30 days cholecalciferol (vitamin D3) 50 mcg PO DAILY empagliflozin 25 mg PO DAILY glyburide 10 mg (2 x 5 mg) PO BID 90 days lisinopril 20 mg PO DAILY metformin 1,000 mg PO BID 3 months rosuvastatin 5 mg PO Q OTHER DAY syringe with needle, safety (Monoject TB Safety Syringe) As directed tadalafil 10 mg PO DAILY 90 days testosterone cypionate (Depo-Testosterone) 100 mg (0.5 mL) subcut QWEEK 4 weeks Tobacco use date assessed: 07/12/24 Fall risk assessment: No Falls in past year Last assessed Fall Risk: 07/12/24 Dental Screening Dental Screen Date: 07/12/24 Did you have a dental visit in the last 12 months?: Yes Did you have a dental problem in the last 6 months where you did not have access to dental care?: Yes Was dental information given to patient?: Patient has dentist HPI Annual PE HPI Details 69-year-old male -year- with history hyp ogonadism, with erectile dysfunction, osteoarthritis, diabetes mellitus and hyperlipidemia, and hypertension here today for his physical exam. He has been compliant with taking his medications , has been exercising regularly, but latest hemoglobin A1c is higher than last check at 8.1% with subsequent elevation in her triglyceride level.. Last colonoscopy was done by Dr. Melendez in 2017, with normal findings, due for recheck in 2027. [facility] Medical History (Updated 07/12/24 @ 12:20 by Frida Gage MD) Diabetes mellitus with hyperglycemia, without long-term current use of insulin Benign positional vertigo History of gout Essential hypertension Osteoarthritis involving multiple joints on both sides of body Mixed dyslipidemia Surgical History (Updated 07/12/24 @ 12:20 by Frida Gage MD) S/P right rotator cuff repair (03/26/23) History of carpal tunnel release Hx of total knee replacement Family History Father No problems noted. Mother No problems noted. Sister Cervical cancer Uterine cancer Hypothyroidism Social History Housing: House Alcohol intake: current Patient Tobacco Use Status: Never used Tobacco e-Cigarette/Vaping Use: Never Used service: No Current occupational status: employed Current occupation: [employer], left hand dominant Cognitive needs: No Hearing needs: No Vision needs: Yes Questionnaire PHQ-9 Over the last 2 weeks, how often have you been bothered by any of the following problems? 1. Little interest or pleasure in doing things: not at all 2. Feeling down, depressed, or hopeless: not at all 3. Trouble falling or staying asleep, or sleeping too much: not at all 4. Feeling tired or having little energy: not at all 5. Poor appetite or overeating: not at all 6. Feeling bad about yourself - or that you are a failure or have let yourself or your family down: not at all 7. Trouble concentrating on things, such as reading the newspaper or watching television: not at all 8. Moving or speaking so slowly that other people could have noticed. Or the opposite - being so fidgety or restless that you have been moving around a lot more than usual: not at all 9. Thoughts that you would be better off or of hurting yourself in some way: not at all Total score: 0 Depression Screening Interpretation: Negative Depression Screening Done: Yes 21540 - PHQ-9 Billing: Yes Source: Developed by Drs. Jorge A Vasquez, Nolvia Betts, Shar Cornejo and colleagues, with an educational carlos from [employer]. Thrive Questionnaire Date Thrive assessed: 07/12/24 I am a: Patient What is your living situation today?: I have a steady place to live Within the past 12 months, did the food you bought not last and you didn't have the money to get more?: I choose not to answer this question Within the past 12 months, did you worry whether your food would run out before you got money to buy more?: I choose not to answer this question Do you have trouble paying for medicines?: No Do you have trouble getting transportation to medical appointments?: No Do you have trouble paying your heating and electricity bill?: No Do you have trouble taking care of your child, family member or friend?: No Do you have trouble with day-to-day activities such as bathing, preparing meals, shopping, managing finances, etc.?: No Are you currently unemployed and looking for a job?: No Are you interested in more education?: No Please select the resources that you would like help with: None Currently or been in a relationship where the following occur: No concerns reported THRIVE Score: 0 AUDIT C Alcohol Use Questionnaire (AUDIT-C) 1. How often do you have a drink containing alcohol?: Monthly or less 2. How many drinks containing alcohol do you have on a typical day when you are drinking?: 1 or 2 3. How often do you have six or more drinks on one occasion?: Never Total Score: 1 JUAN MIGUEL-7 AMB Questionnaire JUAN MIGUEL-7 Date JUAN MIGUEL - 7 assessed: 07/12/24 Feeling nervous, anxious, or on edge: 0 = Not at all Not being able to stop or control worryin = Not at all Worrying too much about different things: 0 = Not at all Trouble relaxin = Not at all Being so restless that it is hard to sit still: 0 = Not at all Becoming easily annoyed or irritable: 0 = Not at all Feeling afraid as if something awful might happen: 0 = Not at all Total JUAN MIGUEL-7 score (0-4 normal; 5-9 mild; 10-14 moderate; 15-21 severe): 0 Source: Developed by Drs. Jorge A Vasquez, Nolvia Betts, Shar Cornejo and colleagues, with an educational carlos from [employer]. JUAN MIGUEL-7 Assessment Billing JUAN MIGUEL-7 Assessment Tool: JUAN MIGUEL-7 Assessment 39608 Review of Systems Const All systems reviewed & are unremarkable except as noted in HPI and below Reports no additional complaints Eyes Details: Up-to-date with his diabetes retinopathy screening Reports no additional complaints ENT Reports no additional complaints and Reports Normal hearing present Card Reports no additional complaints Resp Reports no additional complaints GI Reports no additional complaints Reports as per HPI Musc Reports no additional complaints Skin/Breast Denies lesions and Denies rash Neuro Reports no additional complaints, Reports Normal hearing present and Denies Sensory deficit (Neuro) Psych Reports no additional complaints Endo Reports no additional complaints Lei/Lymph Reports no additional complaints Aller/Immun Reports no additional complaints Physical exam (Primary Care) Vital Signs: Last Vital Signs Temp 98.0 F 07/12/24 11:45 Pulse 76 07/12/24 11:45 BP 125/80 07/12/24 11:45 Pulse Ox 98 07/12/24 11:45 Oxygen Delivery Method Room Air 07/12/24 11:45 BMI result Body Mass Index 31.6 Tobacco/Smoking Status: Tobacco use Status Tobacco use date assessed 07/12/24 07/12/24 11:47 Patient Tobacco Use Status Never used Tobacco 07/12/24 11:47 e-Cigarette/Vaping Use Never Used 07/12/24 11:47 PHQ-9: PHQ-9 Score PHQ-9: Total score 0 07/19/24 00:05 Depression Screening Interpretation: Negative Thrive Assessment: Date of Thrive Assessment Date Thrive assessed 07/12/24 07/12/24 11:47 Currently or been in a relationship where the following occur: No concerns reported Advance Care Planning discussion: Completed/Scanned Date of discussion: 07/12/24 Who was present: patient Forms completed: Health Care Proxy and MOLST Time spent: 16-45 minutes Actual minutes spent: 5 Const General: no acute distress and alert Orientation/consciousness: patient oriented x3 HENMT Head: Yes normal to inspection Face and sinus: Yes face symmetric Eyes General: appearance normal, both eyes and all related structures Neck Neck: Yes full ROM and Yes no lymphadenopathy Resp Effort & Inspection: normal respiratory effort and able to speak in complete sentences Auscultation: clear to auscultation bilaterally Cardio Rate: regular rate Rhythm: regular rhythm Heart sounds: S1 normal heart sound present and S2 normal heart sound present GI Inspection: Yes normal to inspection Palpation (GI): Soft to palpation Auscultation: normal bowel sounds General: Yes no CVA tenderness Back/Spine/Pelvis Back: no CVA tenderness and No back tenderness Skin General skin exam: no rashes or lesions noted Neuro General: patient oriented x3, gait normal, moves all extremities, no focal motor deficits and CN's II-XI intact bilaterally Cranial nerves: Yes Normal hearing present Cognition (Neuro): normal cognition Gait exam (Neuro): Normal gait present Sensory Exam: No Sensory deficit (Neuro) Extrem General: Yes full ROM, Yes no joint enlargement, Yes no pedal edema and Yes normal gait Psych Appearance: grossly normal and well kempt Mental Status: mental status grossly normal Speech and movement: Normal speech and movement present Affect: normal affect Results Reviewed Results Reviewed: Laboratory Tests 02/27/24 07/08/24 07:15 07:37 Estimat Average Glucose 174 186 Hemoglobin A1c % 7.7 H 8.1 H Urine Creatinine 81.52 Urine Microalbumin 5.0 Microalb/Creat Ratio 6.1 Name: Doni Barnes Age/Sex: 68/M : 1955 Unit#: [id number] Attend Dr: Frida Gage MD Re07/08/24 Status: DEP REF Location: [facility] Disch: SPEC : [id number] LAUREN: 07/08/24 STATUS: COMP REQ : [id number] RECD: 07/08/24-[address]: Frida Gage MD COMP: 07/08/24 ENTERED: 07/08/24-[address] [facility] [address]: ORDERED: Met Prof Fast, AST, ALT, Lipid Panel Test Result Flag Reference Sodium 138 135-145 mmol/L Potassium 4.2 3.3-5.1 mmol/L CL 104 96-108 mmol/L CO2 23 22-29 mmol/L Gap 15 12-20 BUN 18 H 9-16 mg/dL Creat 1.17 0.5-1.4 mg/dL eGFR > 60 Chronic Kidney Disease: Estimated GFR < 60 mL/min/1.73m2 Severe Kidney Disease: Estimated GFR < 15 mL/min/1.73m2 FBS 178 H 60-99 mg/dL A fasting glucose of 126 mg/dl or greater on more than one occasion is considered diagnostic of diabetes. CA 9.5 8.4-10.2 mg/dL AST (GOT) 31 5-37 U/L ALT (GPT) 36 0-40 U/L Triglyceride 206 H <150 mg/dL Desirable Triglyceride: less than 150 mg/dL Borderline High Triglyceride 150-199 mg/dL High Triglyceride: 200-499 mg/dL Very High Triglyceride: greater than or equal to 5OO mg/dL Cholesterol 106 <200 mg/dL Desirable Cholesterol: less than 200 mg/dL Borderline High Cholesterol: 200-239 mg/dL High Cholesterol: greater than 239 mg/dL LDL Calculated 41 <100 mg/dL Desirable LDL: less than 100 mg/dL Near Optimal/Above Optimal LDL: 110-129 mg/dL Borderline High LDL: 130-159 mg/dL High LDL: 160-189 mg/dL Very High LDL: greater than or equal to 190 mg/dL HDL 24 L >40 mg/dL Desirable HDL: greater than 40 mg/dL Note: This HDL assay may give artificially low results in patients with liver disease. Coding Level of Care Code Est Pt Prev Care >65y(37668) Diagnoses Annual visit for general adult medical examination with abnormal findings Z00. Diabetes mellitus with hyperglycemia, without long-term current use of insulin E11.65 Hypertriglyceridemia E78.1 Essential hypertension I10 Mixed dyslipidemia E78.2 Advanced directives, counseling/discussion Z71.89 Additional Codes Vital Signs *Quality* - Advance Care Planning discussion: Completed/Scanned ([id number]) Vital Signs *Quality* - Time spent: 16-45 minutes ([id number]) PHQ-9 - 85091 - PHQ-9 Billing: Yes ([id number]) JUAN MIGUEL-7 Assessment Billing - JUAN MIGUEL-7 Assessment Tool: JUAN MIGUEL-7 Assessment 67943 ([id number]) Assessment & Plan Assessment & Plan (1) Annual visit for general adult medical examination with abnormal findings: Code(s): Z00.01 - Encounter for general adult medical examination with abnormal findings Plan: Reviewed recent fasting lab results with patient periods with regular dental visit every 6 months and annual eye exams. Take adequate calcium in diet and vitamin-D 3 at 2000 IU per cap once a day, in addition to weight-bearing exercises to help maintain good muscle tone and weight control. Instructed to do self-testicular exam check for any mass. Up-to-date with his screening colonoscopy. Reminded to get his yearly flu shot, declines COVID booster, up-to-date with his Tdap pneumonia vaccine and shingles vaccine (2) Diabetes mellitus with hyperglycemia, without long-term current use of insulin: Code(s): E11.65 - Type 2 diabetes mellitus with hyperglycemia Category: Medical Plan: Reinforced importance of following recommended diet andcontinue with regular exercise . Will continue on current dose of empagliflozin, glyburide and metformin. Added Trulicity 0.75 mg to be injected subcutaneously once a week, instructed on how to use medication. Possible side effects of medication which may include alteration in bowel habits, some nausea and abdominal cramping. Will see him back for follow-up in 3 months after fasting labs done. Reminded to get his diabetes retinopathy screening this year (3) Hypertriglyceridemia: Code(s): E78.1 - Pure hyperglyceridemia Plan: Will continue on rosuvastatin in addition to adherence to diet and getting regular exercise. Repeat fasting lipids in 3 months (4) Essential hypertension: Code(s): I10 - Essential (primary) hypertension Category: Medical Plan: Blood pressure at goal of less than 130/80. Continue with current medication. Reinforced importance of following a low sodium diet, getting regular exercise, and lowering stress levels. (5) Mixed dyslipidemia: Code(s): E78.2 - Mixed hyperlipidemia Category: Medical Plan: Continue rosuvastatin, repeat fasting lipids in 3 months (6) Advanced directives, counseling/discussion: Code(s): Z71.89 - Other specified counseling Plan: Initiated the conversation about Advanced Directives. Advanced Directives help patients prepare for current and future decisions about their medical treatment and place of care. Discussed with patient that it is a process where a patients current condition and prognosis are reviewed, their wishes for information regarding their illness are elicited, and likely medical dilemmas are presented and options discussed. Healthcare proxy and MOLST form completed today. These forms can be amended as needed, reviewed yearly and make changes as needed Orders: Orders Lipid Panel 10/07/24 E11.65 - Type 2 diabetes mellitus with hyperglycemia, E78.1 - Pure hyperglyceridemia Basic Metabolic Panel Fasting 10/07/24 E11.65 - Type 2 diabetes mellitus with hyperglycemia, E78.1 - Pure hyperglyceridemia Hemoglobin A1c 10/07/24 E11.65 - Type 2 diabetes mellitus with hyperglycemia, E78.1 - Pure hyperglyceridemia Alanine Aminotransferase 10/07/24 E11.65 - Type 2 diabetes mellitus with hyperglycemia, E78.1 - Pure hyperglyceridemia Aspartate Amino Transferase 10/07/24 E11.65 - Type 2 diabetes mellitus with hyperglycemia, E78.1 - Pure hyperglyceridemia Medications: New Trulicity (dulaglutide) 0.75 mg (0.5 mL) subcut QWEEK 30 days 2 mL 4RF NS E11.65 - Type 2 diabetes mellitus with hyperglycemia
== END 2024-07-12 12:21 | disposition home or self-care (01) ==
PROVIDERS: PCP Internal Medicine; Visit Provider Internal Medicine
DX: Z00.01 Encounter for general adult medical examination with abnormal findings (principal); E11.65 Type 2 diabetes mellitus with hyperglycemia; E78.1 Pure hyperglyceridemia; I10 Essential (primary) hypertension; E78.2 Mixed hyperlipidemia; Z71.89 Other specified counseling; Z00.00 Encounter for general adult medical examination without abnormal findings

== ENCOUNTER → 2024-07-12 10:48 | Outpatient (BNVA) | payer OTHER, SELFPAY | PROVIDERS: PCP Internal Medicine; Visit Provider Internal Medicine | DX: Z00.01 Encounter for general adult medical examination with abnormal findings (principal); E11.65 Type 2 diabetes mellitus with hyperglycemia; E78.1 Pure hyperglyceridemia; I10 Essential (primary) hypertension; E78.2 Mixed hyperlipidemia; Z79.899 Other long term (current) drug therapy; Z71.89 Other specified counseling | CPT/HCPCS: 96127 ==

== ENCOUNTER 2024-10-11 12:48 | Outpatient (REF) | payer OTHER, SELFPAY ==
[2024-10-14 17:14] LABS: Testosterone, Total 460 ng/dL (250-1100)
== END 2024-10-11 12:49 | disposition home or self-care (01) ==
LOC: HO.HMGCLDS 12:48
PROVIDERS: PCP Internal Medicine; Visit Provider Urology
DX: E29.1 Testicular hypofunction (principal)
CPT/HCPCS: 36415; 84403

== ENCOUNTER 2024-11-04 10:53 | Outpatient (AMB) | payer OTHER, SELFPAY ==
--- NOTE | 2024-11-04 10:53 | A.OFFVIS_ITS ---
Intake Visit Reasons: 6 months/ labs(labs?) Intake Note: Patient is present for 6M/LABS Urology Medication:TESTOSTERONE,TADALAFIL,ALLOPURINOL Antibiotic Allergy:NONE Blood Thinner:NONE Acid Regenerator Required: No Allergies No Known Allergies [No Known Allergies*] Allergy (Verified 11/04/24 10:54) HPI Comments Details: Doni is a very pleasant male. He is seen for the following urologic conditions - erectile dysfunction in setting of diabetes - hypogonadism Telemedicine evaluation 15 minute consultation Voluntis shannan Video attempted T 460 - using 0.5mg weekly Lab work stable Primary issue is erectile dysfunction Good response to maximize of medications with 10 mg daily tadalafil and 20 mg p.r.n. demand 6 month follow-up Hypogonadism: He presents today for further evaluation and followup of his hypogonadism - Current therapy 0.5 cc subcutaneous weekly Fri injection/Lab Friday Initial symptoms include erectile dysfunction Yes decreased libido Yes The onset of symptoms has been gradual. Associate conditions include obstructive sleep apnea No CAD No diabetes Yes dyslipidemia Yes hypertension Yes Laboratory results 11/25 , baseline T 200 Free T 44 12/25 T 207, FSH 8.6, 02/25 T 130, 05/27 T 175, 09/27 T 387, PSA 0.6, 04/29 T 350 P 0.5, 11/28 T 300 0.46 48, 04/30 396 0.8, 12/29 327 0.58 47, 01/30 470 0.8, 10/31 460 0.75 49 HBA1c 8.1 - HBA1c - 08/29 7.2% Therapeutic plan 6 month follow-up Erectile dysfunction: Increased to 10 mg daily with a escalating dose on demand Symptoms have been present for/since gradual since 2016. Current treatment includes 10 mg daily Cialis plus Cialis 20 mg Treatment side effects include none. Prior therapies include oral medications. At this time he experiences erections are partial and adequate for vaginal penetration, that undergo rapid detumesence after penetration, BARI 8-11 Moderate ED. Nocturnal erections do not occur. Currently they are in a stable relationship. Associated problems hypertension Yes diabetes Yes dyslipidemia Yes Overall he is not satisfied with the current management. Therapeutic plan includes Escalating oral doses [facility] Medical History (Updated 07/12/24 @ 12:20 by Frida Gage MD) Diabetes mellitus with hyperglycemia, without long-term current use of insulin Benign positional vertigo History of gout Essential hypertension Osteoarthritis involving multiple joints on both sides of body Mixed dyslipidemia Surgical History (Updated 07/12/24 @ 12:20 by Frida Gage MD) S/P right rotator cuff repair (03/26/23) History of carpal tunnel release Hx of total knee replacement Family History Father No problems noted. Mother No problems noted. Sister Cervical cancer Uterine cancer Hypothyroidism Social History Housing: House Alcohol intake: current Patient Tobacco Use Status: Never used Tobacco e-Cigarette/Vaping Use: Never Used service: No Current occupational status: employed Current occupation: [employer], left hand dominant Cognitive needs: No Hearing needs: No Vision needs: Yes Review of Systems Const All systems reviewed & are unremarkable except as noted in HPI and below Reports no additional complaints Resp Reports no additional complaints GI Reports no additional complaints Reports as per HPI Musc Reports no additional complaints Physical Exam Telemedicine evaluation Appropriate responses Regular breathing rate and rhythm HEENT Head: Yes normal to inspection Ears: hearing grossly normal bilaterally Eyes General: appearance normal, both eyes and all related structures Neck Neck: Yes normal visual inspection Chest Chest palpation & inspection: normal inspection of the chest Resp Effort & Inspection: normal respiratory effort and able to speak in complete sentences Telehealth Telehealth Telehealth Platform: [facility] Location of provider rendering services: practice address Location of patient: address on file Patient Identification confirmed using: Name, : Yes Telehealth method: video Patient verbally consented to treatment: Yes Patient verbally consented to billing insurance company: Yes Patient informed of any privacy concerns related to visit: Yes Minutes spent on Phone/Video with Pt.: 15 Assessment & Plan Assessment & Plan (1) Erectile dysfunction associated with type 2 diabetes mellitus: Code(s): E11.69 - Type 2 diabetes mellitus with other specified complication; N52.1 - Erectile dysfunction due to diseases classified elsewhere Category: Medical (2) Hypogonadism in male: Code(s): E29.1 - Testicular hypofunction Category: Medical Plan Six-month follow-up lab work office Orders: Orders Testosterone, Total 6 Months E29.1 - Testicular hypofunction Prostate Specific Antigen 6 Months E29.1 - Testicular hypofunction Complete Blood Count no Diff 6 Months E29.1 - Testicular hypofunction Prostate Specific Antigen 10/27/24 Z12.5 - Encounter for screening for malignant neoplasm of prostate Testosterone, Total 10/27/24 E29.1 - Testicular hypofunction Medications: Refilled testosterone cypionate (Depo-Testosterone) 100 mg (0.5 mL) subcut QWEEK 2 mL 5RF 4 weeks E29.1 - Testicular hypofunction tadalafil Once daily 10 mg PO DAILY 90 tabs 1RF 90 days E29.1 - Testicular hypofunction Patient Instructions: This note is constructed using voice recognition software. While every effort has been made to ensure accuracy injection molder errors may have been included. Imaging studies, laboratory and physical exam results were discussed and reviewed in detail. No major barriers to patient understanding were identified. An opportunity to ask questions regarding the treatment plan was provided. All questions were answered. The patient expressed understanding and agreement with the above treatment plan. The patient is aware they should contact our office by phone for worsening of their current condition or the appearance of new urologic symptoms. Compliance is encouraged with any medications and followup testing that is ordered. It is a privilege to participate in the urologic care of your patient. If you have any questions or concerns regarding treatment for the above conditions, or other urologic issues, please do not hesitate to contact me. The office telephone contact is [phone]. Sincerely, Dr Marek Lopez MD, [facility] - Urology Compassionate Specialist Care for the Genitourinary System Coding Level of Care Code Tele Est Pt Level 3 (50320) Complex EM visit Add On G2211 Diagnoses Erectile dysfunction associated with type 2 diabetes mellitus E11.69; N52.1 Hypogonadism in male E29.1
== END 2024-11-04 11:24 | disposition home or self-care (01) ==
LOC: HO.HUSH 10:53
PROVIDERS: PCP Internal Medicine; Visit Provider Urology
DX: E11.69 Type 2 diabetes mellitus with other specified complication (principal); N52.1 Erectile dysfunction due to diseases classified elsewhere; E29.1 Testicular hypofunction
CPT/HCPCS: 99213

== ENCOUNTER → 2024-11-04 10:53 | Outpatient (BNVA) | payer OTHER, SELFPAY | PROVIDERS: PCP Internal Medicine; Visit Provider Urology | DX: Z12.5 Encounter for screening for malignant neoplasm of prostate (principal); E29.1 Testicular hypofunction ==

== ENCOUNTER 2024-11-05 07:46 | Outpatient (REF) | payer OTHER, SELFPAY ==
[2024-11-05 10:37] LABS: Estimated Average Glucose 160 mg/dL; Hemoglobin A1c % 7.2 % (<6.0)
[2024-11-05 10:46] LABS: Alanine Aminotransferase 26 U/L (0-40); Anion Gap 9 (12-20); Aspartate Amino Transferase 31 U/L (5-37); Blood Urea Nitrogen 19 mg/dL (9-16); Calcium 9.5 mg/dL (8.4-10.2); Carbon Dioxide 25 mmol/L (22-29); Chloride 105 mmol/L (96-108); Cholesterol 100 mg/dL (<200); Estimated Glomerular Filt Rate > 60; Glucose Fasting 182 mg/dL (60-99); HDL Cholesterol 26 mg/dL (>40); LDL Cholesterol Calculated 46 mg/dL (<100); Potassium 4.4 mmol/L (3.3-5.1); Sodium 135 mmol/L (135-145); Triglycerides 142 mg/dL (<150)
== END 2024-11-05 07:47 | disposition home or self-care (01) ==
LOC: HO.HMGCLDS 07:46
PROVIDERS: PCP Internal Medicine; Visit Provider Internal Medicine
DX: E11.65 Type 2 diabetes mellitus with hyperglycemia (principal); E78.1 Pure hyperglyceridemia
CPT/HCPCS: 36415; 80048; 80061; 83036; 84450; 84460

== ENCOUNTER 2024-11-09 09:14 | Outpatient (AMB) | payer OTHER, SELFPAY ==
--- NOTE | 2024-11-09 09:10 | A.OFFPC_ITS ---
Intake Visit Reasons: 4 months f/up Intake Note: Pt is having a telehealth visit to discuss recent lab results Allergies No Known Allergies [No Known Allergies*] Allergy (Verified 11/09/24 09:34) Medication List - Last Reconciled 11/09/24 by Frida Gage MD allopurinol 300 mg PO DAILY celecoxib (Celebrex) 200 mg PO BID 30 days cholecalciferol (vitamin D3) 50 mcg PO DAILY empagliflozin 25 mg PO DAILY glyburide 5 mg PO ONCE lisinopril 20 mg PO DAILY metformin 1,000 mg PO BID 3 months rosuvastatin 5 mg PO Q OTHER DAY syringe with needle, safety (Monoject TB Safety Syringe) As directed tadalafil 10 mg PO DAILY 90 days testosterone cypionate (Depo-Testosterone) 100 mg (0.5 mL) subcut QWEEK 4 weeks Trulicity (dulaglutide) 0.75 mg (0.5 mL) subcut QWEEK 30 days NS Tobacco use date assessed: 11/09/24 Fall risk assessment: No Falls in past year Last assessed Fall Risk: 11/09/24 Dental Screening Dental Screen Date: 11/09/24 Did you have a dental visit in the last 12 months?: Yes Did you have a dental problem in the last 6 months where you did not have access to dental care?: No Was dental information given to patient?: Patient has dentist HPI 4 months f/up HPI Details 69-year-old male with history of diabete s mellitus, currently on glyburide 5 mg daily metformin 1000 mg twice a day, Jardiance 25 mg once a day and Trulicity 0.75 mg once daily, and has mixed dyslipidemia, here today for his follow-up. He has been feeling well on current medication, with hemoglobin A1c now dropped from 8.1-7.2% denies any side effects from the medication. [facility] Medical History Diabetes mellitus with hyperglycemia, without long-term current use of insulin Benign positional vertigo History of gout Essential hypertension Osteoarthritis involving multiple joints on both sides of body Mixed dyslipidemia Surgical History S/P right rotator cuff repair (03/26/23) History of carpal tunnel release Hx of total knee replacement Family History Father No problems noted. Mother No problems noted. Sister Cervical cancer Uterine cancer Hypothyroidism Social History Housing: House Alcohol intake: current Patient Tobacco Use Status: Never used Tobacco e-Cigarette/Vaping Use: Never Used service: No Current occupational status: employed Current occupation: [employer], left hand dominant Cognitive needs: No Hearing needs: No Vision needs: Yes Questionnaire Thrive Questionnaire Date Thrive assessed: 07/12/24 JUAN MIGUEL-7 AMB Questionnaire JUAN MIGUEL-7 Date JUAN MIGUEL - 7 assessed: 07/12/24 Source: Developed by Drs. Jorge A Vasquez, Nolvia Betts, Shar Cornejo and colleagues, with an educational carlos from [employer]. Review of Systems Const All systems reviewed & are unremarkable except as noted in HPI and below Reports no additional complaints Eyes Details: Up-to-date with his diabetes retinopathy screening Reports no additional complaints ENT Reports no additional complaints Card Reports no additional complaints Resp Reports no additional complaints GI Reports no additional complaints Reports as per HPI Musc Reports no additional complaints Skin/Breast Denies lesions and Denies rash Neuro Reports no additional complaints Psych Reports no additional complaints Endo Reports no additional complaints Lei/Lymph Reports no additional complaints Aller/Immun Reports no additional complaints Physical exam (Primary Care) Tobacco/Smoking Status: Tobacco use Status Tobacco use date assessed 11/09/24 11/09/24 09:12 Patient Tobacco Use Status Never used Tobacco 11/09/24 09:12 e-Cigarette/Vaping Use Never Used 11/09/24 09:12 Thrive Assessment: Date of Thrive Assessment Date Thrive assessed 07/12/24 11/09/24 09:12 Telehealth [facility]health [facility] Location of provider rendering services: practice address Location of patient: address on file Patient Identification confirmed using: Name, : Yes Telehealth method: video Patient verbally consented to treatment: Yes Patient verbally consented to billing insurance company: Yes Patient informed of any privacy concerns related to visit: Yes Minutes spent on Phone/Video with Pt.: 20 Results Reviewed Results Reviewed: Name: Doni Barnes Age/Sex: 69/M : 1955 Unit#: [id number] Attend Dr: Frida Gage MD Re11/05/24 Status: DEP REF Location: [facility] Disch: SPEC : [id number] LAUREN: 11/05/24 STATUS: COMP REQ : [id number] RECD: 11/05/24-[address]: Frida Gage MD COMP: 11/05/24 ENTERED: 11/05/24 [facility] DR: ORDERED: Met Prof Fast, AST, ALT, Lipid Panel Test Result Flag Reference Sodium 135 135-145 mmol/L Potassium 4.4 3.3-5.1 mmol/L CL 105 96-108 mmol/L CO2 25 22-29 mmol/L Gap 9 L 12-20 BUN 19 H 9-16 mg/dL Creat 1.03 0.5-1.4 mg/dL eGFR > 60 Chronic Kidney Disease: Estimated GFR < 60 mL/min/1.73m2 Severe Kidney Disease: Estimated GFR < 15 mL/min/1.73m2 FBS 182 H 60-99 mg/dL A fasting glucose of 126 mg/dl or greater on more than one occasion is considered diagnostic of diabetes. CA 9.5 8.4-10.2 mg/dL AST (GOT) 31 5-37 U/L ALT (GPT) 26 0-40 U/L Triglyceride 142 <150 mg/dL Desirable Triglyceride: less than 150 mg/dL Borderline High Triglyceride 150-199 mg/dL High Triglyceride: 200-499 mg/dL Very High Triglyceride: greater than or equal to 5OO mg/dL Cholesterol 100 <200 mg/dL Desirable Cholesterol: less than 200 mg/dL Borderline High Cholesterol: 200-239 mg/dL High Cholesterol: greater than 239 mg/dL LDL Calculated 46 <100 mg/dL Desirable LDL: less than 100 mg/dL Near Optimal/Above Optimal LDL: 110-129 mg/dL Borderline High LDL: 130-159 mg/dL High LDL: 160-189 mg/dL Very High LDL: greater than or equal to 190 mg/dL HDL 26 L >40 mg/dL Desirable HDL: greater than 40 mg/dL Note: This HDL assay may give artificially low results in patients with liver disease. Laboratory Tests 05/30/25 07:56 Estimat Average Glucose 160 Hemoglobin A1c % 7.2 H Coding Level of Care Code Tele Est Pt Level 4 (47826) Complex EM visit Add On G2211 Diagnoses Diabetes mellitus with hyperglycemia, without long-term current use of insulin E11.65 Essential hypertension I10 Mixed dyslipidemia E78.2 Assessment & Plan Assessment & Plan (1) Diabetes mellitus with hyperglycemia, without long-term current use of insu maddi: Code(s): E11.65 - Type 2 diabetes mellitus with hyperglycemia Category: Medical Plan: Diabetes mellitus better controlled with hemoglobin A1c now down to 7.2%. However goal is to go less than 6.5%. Will increase Trulicity dose to 1.5 mg injected subcutaneously once a week. New with metformin a 1000 mg twice a day and Jardiance 25 mg daily, discontinue glyburide 5 mg once a day. Will see him back for follow-up in 4 months after fasting labs done. (2) Essential hypertension: Code(s): I10 - Essential (primary) hypertension Category: Medical Plan: Continue lisinopril 20 mg daily (3) Mixed dyslipidemia: Code(s): E78.2 - Mixed hyperlipidemia Category: Medical Plan: Fasting lipids within normal limits, continue with rosuvastatin 5 mg taken every other day Orders: Orders Alanine Aminotransferase 4 Months E11.65 - Type 2 diabetes mellitus with hyperglycemia, E78.2 - Mixed hyperlipidemia, I10 - Essential (primary) hypertension Aspartate Amino Transferase 4 Months E11.65 - Type 2 diabetes mellitus with hyperglycemia, E78.2 - Mixed hyperlipidemia, I10 - Essential (primary) hypertension Basic Metabolic Panel Fasting 4 Months E11.65 - Type 2 diabetes mellitus with hyperglycemia, E78.2 - Mixed hyperlipidemia, I10 - Essential (primary) hypertension Lipid Panel 4 Months E11.65 - Type 2 diabetes mellitus with hyperglycemia, E78.2 - Mixed hyperlipidemia, I10 - Essential (primary) hypertension Hemoglobin A1c 4 Months E11.65 - Type 2 diabetes mellitus with hyperglycemia, E78.2 - Mixed hyperlipidemia, I10 - Essential (primary) hypertension Medications: New Trulicity (dulaglutide) 1.5 mg (0.5 mL) subcut QWEEK 2 mL 6RF NS E11.65 - Type 2 diabetes mellitus with hyperglycemia Refilled empagliflozin 25 mg PO DAILY 90 tabs 4RF lisinopril 20 mg PO DAILY 90 tabs 4RF Discontinued Trulicity (dulaglutide) Discontinued Reason: Doctor's Order 0.75 mg (0.5 mL) subcut QWEEK 30 days 2 mL 4RF NS E11.65 - Type 2 diabetes mellitus with hyperglycemia
== END 2024-11-09 10:02 | disposition home or self-care (01) ==
LOC: HO.HMCC 09:14
PROVIDERS: PCP Internal Medicine; Visit Provider Internal Medicine
DX: E11.65 Type 2 diabetes mellitus with hyperglycemia (principal); I10 Essential (primary) hypertension; E78.2 Mixed hyperlipidemia

== ENCOUNTER → 2024-11-09 09:14 | Outpatient (BNVA) | payer OTHER, SELFPAY | PROVIDERS: PCP Internal Medicine; Visit Provider Internal Medicine ==

== ENCOUNTER 2025-01-07 08:35 | Outpatient (REF) | payer OTHER, SELFPAY ==
--- NOTE | ~2025-01-07 | XR_ITS ---
EXAMINATION: XR SHOULDER, RIGHT CLINICAL INFORMATION: M25.511 - Pain in right shoulder COMPARISON: 10/08/2022. TECHNIQUE: AP external rotation, Grashey, scapular Y, and axillary views of the right shoulder. FINDINGS: Normal bone mineralization. No fracture, dislocation, or suspicious bone lesion. Normal alignment. There are 3 surgical anchors in the greater tuberosity of the humeral head. The glenohumeral joint demonstrates mild to moderate degenerative arthrosis. The AC joint demonstrates mild to moderate posterior superior and undersurface spurring. There is a type II acromion. No undersurface spurring. The subacromial space is mild to moderately narrowed Remainder of the soft tissue and bony structures appear normal. XR/XR shoulder RT min 2V IMPRESSION: 1. No acute bony abnormalities of the right shoulder. 2. There has been prior rotator cuff repair. 3. There is mild to moderate glenohumeral joint and AC joint osteoarthrosis. 4. There is mild to moderate narrowing of the subacromial space, which may indicate underlying rotator cuff pathology. Electronically signed by: Bradford Can MD 01/07/2025 09:24 AM EDT
== END 2025-01-07 08:36 | disposition home or self-care (01) ==
LOC: HO.HMGCX 08:35
PROVIDERS: PCP Internal Medicine; Visit Provider Physician Assistant Medical
DX: M25.511 Pain in right shoulder (principal); Z79.899 Other long term (current) drug therapy
CPT/HCPCS: 73030

== ENCOUNTER 2025-01-07 08:35 | Outpatient (AMB) | payer OTHER, SELFPAY ==
[2025-01-07 08:40] VITALS: BP 145/72; PULSE 97; TEMP 36.9; O2SAT 95; BMI 30.7
--- NOTE | 2025-01-07 08:40 | AM.OFFWIN_ITS ---
Intake Vital Signs 01/07/25 08:40 Height 5 ft 10 in Weight 214 lb BMI 30.7 BP 145/72 H Blood Pressure Location Lt brachial Position Sitting Pulse 97 Pulse Source Pulse Oximeter Temp 98.5 F Temp Source Oral Pulse Oximetry (%) 95 Oxygen Delivery Method Room Air Intake Visit Reasons: EP RT shoulder pain Intake Note: Patient present with right shoulder pain times 5 days Patient Tobacco Use Status: Never used Tobacco Director Mba Required: No Allergies No Known Allergies (No Known Allergies*) Allergy (Verified 01/07/25 08:47) Medication List - Last Reconciled 01/07/25 by Reva Lyons PA-C allopurinol 300 mg PO DAILY celecoxib (Celebrex) 200 mg PO BID 30 days cholecalciferol (vitamin D3) 50 mcg PO DAILY empagliflozin 25 mg PO DAILY lisinopril 20 mg PO DAILY metformin 1,000 mg PO BID 3 months rosuvastatin 5 mg PO Q OTHER DAY syringe with needle, safety (Monoject TB Safety Syringe) As directed tadalafil 10 mg PO DAILY 90 days testosterone cypionate (Depo-Testosterone) 100 mg (0.5 mL) subcut QWEEK 4 weeks Trulicity (dulaglutide) 1.5 mg (0.5 mL) subcut QWEEK NS Do you need a note to return to daycare/school/sports/work: No HPI HPI Comments History of Present Illness Details History of Present Illness - The patient is a 69-year-old male pres enting with right shoulder pain. - The patient reports severe pain in the right shoulder radiating down the arm, which began a few days ago without any specific inciting event. - The pain has progressively worsened, a ffecting sleep and daily activities. - The patient has a history of rotator c uff repair on the same shoulder approximately two years ago. - The patient is left-handed, and the pa in is in the right shoulder, which is not the dominant side. - The patient has not had any imaging st udies since the previous surgery. - The patient also reports having arthri tis, which is not currently affecting the wrist or elbow. - He denies trauma or falls. - He denies arm pain, back pain, numbnes s, or tingling. Physical Exam General: Cooperative, healthy appearing, comfortable, no acute distress and well developed Neck: Normal visual inspection and Yes full ROM. No TTP of the cervical spinous tenderness. No step offs. Respiratory: Normal respiratory effort and able to speak in complete sentences. Clear to auscultation bilaterally Cardiovascular: Regular rate and rhythm. Normal S1 and S2 Skin: No rashes or lesions noted Neuro: Sensation is intact. Extremities: FROM of the right shoulder. No click noted. Mild elevation to the right shoulder compared to the left. TTP of the right anterior shoulder at the AC joint, bicipital groove. TTP of the right trapezius. Negative can test. Negative apprehension test. Negative lift off test. FROM of the right elbow, wrist and digits. 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 Strength is 5/5 on the UE bilaterally. Patient was informed and verbally consented to the use of an ambient scribe for clinic note documentation during this visit. [facility] Medical History Diabetes mellitus with hyperglycemia, without long-term current use of insulin Benign positional vertigo History of gout Essential hypertension Osteoarthritis involving multiple joints on both sides of body Mixed dyslipidemia Surgical History S/P right rotator cuff repair (03/26/23) History of carpal tunnel release Hx of total knee replacement Family History Father No problems noted. Mother No problems noted. Sister Cervical cancer Uterine cancer Hypothyroidism Social History Housing: House Alcohol intake: current Patient Tobacco Use Status: Never used Tobacco e-Cigarette/Vaping Use: Never Used service: No Current occupational status: employed Current occupation: [employer], left hand dominant Cognitive needs: No Hearing needs: No Vision needs: Yes Review of Systems Const All systems reviewed & are unremarkable except as noted in HPI and below Physical Exam Vital Signs: Last Vital Signs Temp 98.5 F 01/07/25 08:40 Pulse 97 01/07/25 08:40 BP 145/72 H 01/07/25 08:40 Pulse Ox 95 01/07/25 08:40 Oxygen Delivery Method Room Air 01/07/25 08:40 BMI result Body Mass Index 30.7 Results Reviewed Results Reviewed: Reviewed the x-ray in the office Assessment & Plan Assessment & Plan (1) Right shoulder pain: Code(s): M25.511 - Pain in right shoulder Qualifiers: Chronicity: acute Qualified Code(s): M25.511 - Pain in right shoulder Plan Most likely strain vs arthritis vs tendonitis vs burstitis vs rotator cuff tear Plan - rest, ice, and elevation - wear sling as needed - Order an x-ray of the right shoulder to assess current condition and provide necessary information for orthopedic evaluation. - Refer the patient to orthopedics for further evaluation and management of the shoulder condition. - Prescribe medications for pain relief and muscle spasms as needed. Orders: Orders XR shoulder RT min 2V Today M25.511 - Pain in right shoulder Referrals Orthopedics Referral M25.511 - Pain in right shoulder Medications: New cyclobenzaprine 5 mg PO Q8H PRN 10 tabs 0RF Muscle Spasm naproxen 500 mg PO Q12H PRN 20 tabs 0RF pain 7 days Coding Level of Care Code Est Pt Level 4 (45972) Diagnoses Acute pain of right shoulder M25.511 Chronicity: acute
== END 2025-01-07 09:10 | disposition home or self-care (01) ==
PROVIDERS: PCP Internal Medicine; Visit Provider Physician Assistant Medical
DX: M25.511 Pain in right shoulder (principal)

== ENCOUNTER → 2025-01-07 08:59 | Outpatient (BNV) | payer OTHER, SELFPAY | PROVIDERS: PCP Internal Medicine; Visit Provider Radiology Diagnostic Radiology | DX: M19.011 Primary osteoarthritis, right shoulder (principal) | CPT/HCPCS: 73030 ==

== ENCOUNTER 2025-02-10 10:19 | Outpatient (AMB) | payer OTHER, SELFPAY ==
--- NOTE | 2025-02-10 10:20 | MHC.OFFVIS ---
Intake Visit Reasons: OV-shoulder pain pre of rotator cuff repair Intake Note: Doni is a 68 year old left hand dominant male who presents today for a follow up of his right shoulder, s/p Right RTC 03/26/23. States that as of 1-2 months ago he woke up with shoulder pain. No injury he can recall. Currently his pain has subsided however he continues to have mild aching and limited ROM, with radiation to his neck. He has tried muscle relaxers which provided no relief. Denies numbness or tingling. Allergies No Known Allergies (No Known Allergies*) Allergy (Verified 02/10/25 10:27) HPI HPI OV-shoulder pain pre of rotator cuff repair: Details: 9-year-old gentleman 2 years status post right rotator cuff repair. He noticed 6 weeks ago when he got out of bed ad pain difficulty abducting his arm. This pain has slowly improved over the last 4-6 weeks but he still is unable to abduct his arm. He has lots of pain in his neck as he has been accommodating is scapula to help him abduct his right arm. He is left-hand dominant. HPI Comments Details: Doni is a 68 year old left hand dominant male who presents today for a follow up of his right shoulder, s/p Right RTC 03/26/23. States that as of 1-2 months ago he woke up with shoulder pain. No injury he can recall. Currently his pain has subsided however he continues to have mild aching and limited ROM, with radiation to his neck. He has tried muscle relaxers which provided no relief. Denies numbness or tingling. [facility] Medical History (Updated 02/10/25 @ 10:59 by Kike Forde MD) Diabetes mellitus with hyperglycemia, without long-term current use of insulin Benign positional vertigo History of gout Essential hypertension Osteoarthritis involving multiple joints on both sides of body Mixed dyslipidemia Surgical History (Updated 02/10/25 @ 10:54 by Kike Forde MD) S/P right rotator cuff repair (03/26/23) History of carpal tunnel release Hx of total knee replacement Family History Father No problems noted. Mother No problems noted. Sister Cervical cancer Uterine cancer Hypothyroidism Social History Housing: House Alcohol intake: current Patient Tobacco Use Status: Never used Tobacco e-Cigarette/Vaping Use: Never Used service: No Current occupational status: employed Current occupation: [employer], left hand dominant Cognitive needs: No Hearing needs: No Vision needs: Yes Physical Exam Extrem Other: Twenty/40/80/hip pocket 4+/5 empty can Scapular recruitment present with minimal abduction. Assessment & Plan Assessment & Plan (1) S/P right rotator cuff repair: Onset Date: 03/26/23 Code(s): Z98.890 - Other specified postprocedural states Category: Surgical Plan: Status post rotator cuff repair 2 years ago. This is a very large repair and he did pretty well but seems to have re-injured his shoulder. I recommend MRI to assess. PT was also ordered. Follow up 6 weeks (2) Rotator cuff arthropathy of right shoulder: Code(s): M12.811 - Other specific arthropathies, not elsewhere classified, right shoulder Category: Medical Plan: Orders: Orders MR shoulder RT wo con Today Z98.890 - Other specified postprocedural states PT Evaluation and Treatment Today M12.811 - Other specific arthropathies, not elsewhere classified, right shoulder Coding Level of Care Code Est Pt Level 3 (46132) Diagnoses S/P right rotator cuff repair Z98.890 Rotator cuff arthropathy of right shoulder M12.811
== END 2025-02-10 11:15 | disposition home or self-care (01) ==
LOC: HO.HOS 10:20
PROVIDERS: PCP Internal Medicine; Visit Provider Orthopaedic Surgery
DX: M25.511 Pain in right shoulder (principal); M12.811 Other specific arthropathies, not elsewhere classified, right shoulder
CPT/HCPCS: 99213

== ENCOUNTER → 2025-03-04 19:50 | Outpatient (BNV) | payer OTHER, SELFPAY | PROVIDERS: PCP Internal Medicine; Visit Provider Radiology Diagnostic Radiology | DX: M75.111 Incomplete rotator cuff tear or rupture of right shoulder, not specified as traumatic (principal) | CPT/HCPCS: 73221 ==

== ENCOUNTER 2025-03-04 20:01 | Outpatient (REF) | payer OTHER, SELFPAY | END 2025-03-04 20:02 | disposition home or self-care (01) | LOC: HO.MRI 20:01 | PROVIDERS: PCP Internal Medicine; Visit Provider Orthopaedic Surgery | DX: Z98.890 Other specified postprocedural states (principal) | CPT/HCPCS: 73221 ==

== ENCOUNTER 2025-03-10 07:08 | Outpatient (REF) | payer OTHER, SELFPAY ==
[2025-03-10 11:25] LABS: Alanine Aminotransferase 26 U/L (0-40); Anion Gap 12 (12-20); Aspartate Amino Transferase 30 U/L (5-37); Blood Urea Nitrogen 13 mg/dL (9-16); Calcium 9.5 mg/dL (8.4-10.2); Carbon Dioxide 26 mmol/L (22-29); Chloride 106 mmol/L (96-108); Cholesterol 104 mg/dL (<200); Estimated Glomerular Filt Rate > 60; HDL Cholesterol 28 mg/dL (>40); Potassium 4.0 mmol/L (3.3-5.1); Sodium 140 mmol/L (135-145); Triglycerides 169 mg/dL (<150)
== END 2025-03-10 07:09 | disposition home or self-care (01) ==
LOC: HO.HMGCLDS 07:08
PROVIDERS: PCP Internal Medicine; Visit Provider Internal Medicine
DX: I10 Essential (primary) hypertension (principal); E11.65 Type 2 diabetes mellitus with hyperglycemia; E78.2 Mixed hyperlipidemia
CPT/HCPCS: 36415; 80048; 80061; 83036; 84450; 84460

== ENCOUNTER 2025-03-15 09:03 | Outpatient (AMB) | payer OTHER, SELFPAY ==
--- NOTE | 2025-03-15 09:22 | MHC.PC.OV ---
Vital Signs 03/15/25 09:31 Height 5 ft 10 in Weight 215 lb BMI 30.8 BP 134/80 Blood Pressure Location Lt brachial Position Sitting Respiration 16 Pulse 99 Pulse Source Pulse Oximeter Temp 98.3 F Temp Source Oral Pulse Oximetry (%) 97 Oxygen Delivery Method Room Air Intake Visit Reasons: 4m follow up fastinf labs, dm Intake Note: Pt is here today for his 4mo. 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 Allergies No Known Allergies (No Known Allergies*) Allergy (Verified 03/15/25 09:43) Medication List - Last Reconciled 03/15/25 by Frida Gage MD allopurinol 300 mg PO DAILY celecoxib (Celebrex) 200 mg PO BID 30 days cholecalciferol (vitamin D3) 50 mcg PO DAILY empagliflozin 25 mg PO DAILY lisinopril 20 mg PO DAILY metformin 1,000 mg PO BID 3 months naproxen 500 mg PO Q12H PRN 7 days rosuvastatin 5 mg PO Q OTHER DAY syringe with needle, safety (Monoject TB Safety Syringe) As directed tadalafil 10 mg PO DAILY 90 days testosterone cypionate (Depo-Testosterone) 100 mg (0.5 mL) subcut QWEEK 4 weeks Trulicity (dulaglutide) 1.5 mg (0.5 mL) subcut QWEEK NS Tobacco use date assessed: 03/15/25 Fall risk assessment: No Falls in past year Last assessed Fall Risk: 03/15/25 Dental Screening Dental Screen Date: 03/15/25 Did you have a dental visit in the last 12 months?: Yes Did you have a dental problem in the last 6 months where you did not have access to dental care?: No Was dental information given to patient?: Patient has dentist HPI 4m follow up fastinf labs, dm HPI Details The patient is a 69-year-old male here today for follow-up after recent fasting labs done. He has Type 2 Diabetes Mellitus currently on Trulicity , Jardiance and metformin , with latest hemoglobin A1c at 7.2%. States that he has been compliant with diet, but but limited physical activity due to shoulder issues. No retinopathy seen on latest eye exam done earlier this year by Dr. Nielsen Currently on rosuvastatin 5 mg taken every other day for control of his lipids. Latest fasting labs showed lipids are within normal limits except for mildly elevated triglycerides and persistently low HDL cholesterol. He is up-to-date with vaccinations, including the influenza vaccine [facility] Medical History Diabetes mellitus with hyperglycemia, without long-term current use of insulin Benign positional vertigo History of gout Essential hypertension Osteoarthritis involving multiple joints on both sides of body Mixed dyslipidemia Surgical History S/P right rotator cuff repair (03/26/23) History of carpal tunnel release Hx of total knee replacement Family History Father No problems noted. Mother No problems noted. Sister Cervical cancer Uterine cancer Hypothyroidism Social History Housing: House Alcohol intake: current Patient Tobacco Use Status: Never used Tobacco e-Cigarette/Vaping Use: Never Used service: No Current occupational status: employed Current occupation: [employer], left hand dominant Cognitive needs: No Hearing needs: No Vision needs: Yes Questionnaire PHQ-9 Over the last 2 weeks, how often have you been bothered by any of the following problems? 1. Little interest or pleasure in doing things: not at all 2. Feeling down, depressed, or hopeless: not at all 3. Trouble falling or staying asleep, or sleeping too much: not at all 4. Feeling tired or having little energy: not at all 5. Poor appetite or overeating: not at all 6. Feeling bad about yourself - or that you are a failure or have let yourself or your family down: not at all 7. Trouble concentrating on things, such as reading the newspaper or watching television: not at all 8. Moving or speaking so slowly that other people could have noticed. Or the opposite - being so fidgety or restless that you have been moving around a lot more than usual: not at all 9. Thoughts that you would be better off or of hurting yourself in some way: not at all Total score: 0 Depression Screening Interpretation: Negative Depression Screening Done: Yes Source: Developed by Drs. Jorge A Vasquez, Nolvia B.WShar Avina and colleagues, with an educational carlos from [employer] Thrive Questionnaire Date Thrive assessed: 07/12/24 I am a: Patient What is your living situation today?: I have a steady place to live Within the past 12 months, did the food you bought not last and you didn't have the money to get more?: I choose not to answer this question Within the past 12 months, did you worry whether your food would run out before you got money to buy more?: I choose not to answer this question Do you have trouble paying for medicines?: No Do you have trouble getting transportation to medical appointments?: No Do you have trouble paying your heating and electricity bill?: No Do you have trouble taking care of your child, family member or friend?: No Do you have trouble with day-to-day activities such as bathing, preparing meals, shopping, managing finances, etc.?: No Are you currently unemployed and looking for a job?: No Are you interested in more education?: No Please select the resources that you would like help with: None Currently or been in a relationship where the following occur: No concerns reported THRIVE Score: 0 AUDIT C Alcohol Use Questionnaire (AUDIT-C) 1. How often do you have a drink containing alcohol?: Monthly or less 2. How many drinks containing alcohol do you have on a typical day when you are drinking?: 1 or 2 3. How often do you have six or more drinks on one occasion?: Never Total Score: 1 JUAN MIGUEL-7 AMB Questionnaire JUAN MIGUEL-7 Date JUAN MIGUEL - 7 assessed: 07/12/24 Feeling nervous, anxious, or on edge: 0 = Not at all Not being able to stop or control worryin = Not at all Worrying too much about different things: 0 = Not at all Trouble relaxin = Not at all Being so restless that it is hard to sit still: 0 = Not at all Becoming easily annoyed or irritable: 0 = Not at all Feeling afraid as if something awful might happen: 0 = Not at all Total JUAN MIGUEL-7 score (0-4 normal; 5-9 mild; 10-14 moderate; 15-21 severe): 0 Source: Developed by Drs. Jorge A Vasquez, Shar Avila and colleagues, with an educational carlos from [employer] Review of Systems Const All systems reviewed & are unremarkable except as noted in HPI and below ENT Reports Normal hearing present Neuro Reports Normal hearing present and Denies Sensory deficit (Neuro) Physical exam (Primary Care) Vital Signs: Last Vital Signs Temp 98.3 F 03/15/25 09:31 Pulse 99 03/15/25 09:31 Resp 16 03/15/25 09:31 BP 134/80 03/15/25 09:31 Pulse Ox 97 03/15/25 09:31 Oxygen Delivery Method Room Air 03/15/25 09:31 BMI result Body Mass Index 30.8 Tobacco/Smoking Status: Tobacco use Status Tobacco use date assessed 03/15/25 03/15/25 09:35 Patient Tobacco Use Status Never used Tobacco 03/15/25 09:22 e-Cigarette/Vaping Use Never Used 03/15/25 09:22 PHQ-9: PHQ-9 Score PHQ-9: Total score 0 03/15/25 10:28 Depression Screening Interpretation: Negative Thrive Assessment: Date of Thrive Assessment Date Thrive assessed 07/12/24 03/15/25 09:22 Currently or been in a relationship where the following occur: No concerns reported Const General: no acute distress and alert Orientation/consciousness: patient oriented x3 HENMT Head: Yes normal to inspection Face and sinus: Yes face symmetric Eyes General: appearance normal, both eyes and all related structures Neck Neck: Yes full ROM and Yes no lymphadenopathy Resp Effort & Inspection: normal respiratory effort and able to speak in complete sentences Auscultation: clear to auscultation bilaterally Cardio Rate: regular rate Rhythm: regular rhythm Heart sounds: S1 normal heart sound present and S2 normal heart sound present GI Inspection: Yes normal to inspection Palpation (GI): Soft to palpation Auscultation: normal bowel sounds General: Yes no CVA tenderness Back/Spine/Pelvis Back: no CVA tenderness and No back tenderness Skin General skin exam: no rashes or lesions noted Neuro General: patient oriented x3, gait normal, no focal motor deficits and CN's II-XI intact bilaterally Cranial nerves: Yes Normal hearing present Cognition (Neuro): normal cognition Gait exam (Neuro): Normal gait present Sensory Exam: No Sensory deficit (Neuro) Extrem Other: Decreased range of motion in his shoulder due to pain and stiffness General: Yes no joint enlargement, Yes no pedal edema and Yes normal gait Results Reviewed Results Reviewed: Name: Doni Barnes Age/Sex: 69/M : 1955 Unit#: [id number] Attend Dr: Frida Gage MD Re03/10/25 Status: DEP [facility] Disch: SPEC : [id number] LAUREN: 03/10/25 STATUS: COMP REQ : [id number] RECD: 03/10/[address]: Frida Gage MD COMP: 03/10/25 ENTERED: 03/10/[address] [facility] [address]: ORDERED: Met Prof Fast, AST, ALT, Lipid Panel Test Result Flag Reference Sodium 140 135-145 mmol/L Potassium 4.0 3.3-5.1 mmol/L CL 106 96-108 mmol/L CO2 26 22-29 mmol/L Gap 12 12-20 BUN 13 9-16 mg/dL Creat 0.96 0.5-1.4 mg/dL eGFR > 60 Chronic Kidney Disease: Estimated GFR < 60 mL/min/1.73m2 Severe Kidney Disease: Estimated GFR < 15 mL/min/1.73m2 FBS 164 H 60-99 mg/dL A fasting glucose of 126 mg/dl or greater on more than one occasion is considered diagnostic of diabetes. CA 9.5 8.4-10.2 mg/dL AST (GOT) 30 5-37 U/L ALT (GPT) 26 0-40 U/L Triglyceride 169 H <150 mg/dL Desirable Triglyceride: less than 150 mg/dL Borderline High Triglyceride 150-199 mg/dL High Triglyceride: 200-499 mg/dL Very High Triglyceride: greater than or equal to 5OO mg/dL Cholesterol 104 <200 mg/dL Desirable Cholesterol: less than 200 mg/dL Borderline High Cholesterol: 200-239 mg/dL High Cholesterol: greater than 239 mg/dL LDL Calculated 43 <100 mg/dL Desirable LDL: less than 100 mg/dL Near Optimal/Above Optimal LDL: 110-129 mg/dL Borderline High LDL: 130-159 mg/dL High LDL: 160-189 mg/dL Very High LDL: greater than or equal to 190 mg/dL HDL 28 L >40 mg/dL Desirable HDL: greater than 40 mg/dL Note: This HDL assay may give artificially low results in patients with liver disease. Laboratory Tests 03/10/25 07:16 Estimat Average Glucose 160 Hemoglobin A1c % 7.2 H Name: Doni Barnes Age/Sex: 68/M : 1955 Unit#: [id number] Attend Dr: Frida Gage MD Re07/08/24 Status: DEP [facility] Disch: SPEC : [id number] LAUREN: 07/08/24 STATUS: COMP REQ : [id number] RECD: 07/08/24 [facility] DR: Frida Gage MD COMP: 07/08/24 ENTERED: 07/08/[address]: ORDERED: MICARU Test Result Flag Reference Creat, Ur 81.52 mg/dL Microalbumin Ur 5.0 mg/L Alb/Creat Ratio 6.1 <30 ug/mg cr Albumin/Creatinine Ratio Reference Ranges: Normal: < 30 ug/mg creatinine Microalbuminuria: 30 - 300 ug/mg creatinine Clinical Albuminuria: > 300 ug/mg creatinine Coding Level of Care Code Est Pt Level 4 (89493) Complex EM visit Add On G2211 Diagnoses Mixed dyslipidemia E78.2 Essential hypertension I10 Diabetes mellitus with hyperglycemia, without long-term current use of insulin E11.65 Assessment & Plan Assessment & Plan (1) Mixed dyslipidemia: Code(s): E78.2 - Mixed hyperlipidemia Category: Medical Plan: Continue with rosuvastatin 5 mg taken every other day (2) Essential hypertension: Code(s): I10 - Essential (primary) hypertension Category: Medical Plan: Blood pressure within acceptable range. Continue on lisinopril 20 mg daily (3) Diabetes mellitus with hyperglycemia, without long-term current use of insulin: Code(s): E11.65 - Type 2 diabetes mellitus with hyperglycemia Category: Medical Plan: Up-to-date with his flu vaccine will increase Trulicity dose to 3 mg injected subcutaneously once a week continued on Jardiance and metformin at the same dose. Repeat labs again in six-month Orders: Orders Lipid Panel 09/10/25 E11.65 - Type 2 diabetes mellitus with hyperglycemia, E78.2 - Mixed hyperlipidemia, I10 - Essential (primary) hypertension, Z87.39 - Personal history of other diseases of the musculoskeletal system and connective tissue Aspartate Amino Transferase 09/10/25 E11.65 - Type 2 diabetes mellitus with hyperglycemia, E78.2 - Mixed hyperlipidemia, I10 - Essential (primary) hypertension, Z87.39 - Personal history of other diseases of the musculoskeletal system and connective tissue Hemoglobin A1c 09/10/25 E11.65 - Type 2 diabetes mellitus with hyperglycemia, E78.2 - Mixed hyperlipidemia, I10 - Essential (primary) hypertension, Z87.39 - Personal history of other diseases of the musculoskeletal system and connective tissue Microalbumin, Random (w Creat) 09/10/25 E11.65 - Type 2 diabetes mellitus with hyperglycemia, E78.2 - Mixed hyperlipidemia, I10 - Essential (primary) hypertension, Z87.39 - Personal history of other diseases of the musculoskeletal system and connective tissue Vitamin D 25-OH Total 09/10/25 E11.65 - Type 2 diabetes mellitus with hyperglycemia, E78.2 - Mixed hyperlipidemia, I10 - Essential (primary) hypertension, Z87.39 - Personal history of other diseases of the musculoskeletal system and connective tissue Uric Acid 09/10/25 E11.65 - Type 2 diabetes mellitus with hyperglycemia, E78.2 - Mixed hyperlipidemia, I10 - Essential (primary) hypertension, Z87.39 - Personal history of other diseases of the musculoskeletal system and connective tissue Alanine Aminotransferase 09/10/25 E11.65 - Type 2 diabetes mellitus with hyperglycemia, E78.2 - Mixed hyperlipidemia, I10 - Essential (primary) hypertension, Z87.39 - Personal history of other diseases of the musculoskeletal system and connective tissue Basic Metabolic Panel Fasting 09/10/25.65 - Type 2 diabetes mellitus with hyperglycemia, E78.2 - Mixed hyperlipidemia, I10 - Essential (primary) hypertension, Z87.39 - Personal history of other diseases of the musculoskeletal system and connective tissue Medications: Changed From Trulicity (dulaglutide) 1.5 mg (0.5 mL) subcut QWEEK 2 mL 6RF NS .65 - Type 2 diabetes mellitus with hyperglycemia To dulaglutide 3 mg (0.5 mL) subcut QWEEK 2 mL 6RF E11.65 - Type 2 diabetes mellitus with hyperglycemia
[2025-03-15 09:31] VITALS: BP 134/80; PULSE 99; RESP 16; TEMP 36.8; O2SAT 97; BMI 30.8
== END 2025-03-15 10:04 | disposition home or self-care (01) ==
LOC: HO.HMCC 09:04
PROVIDERS: PCP Internal Medicine; Visit Provider Internal Medicine
DX: E78.2 Mixed hyperlipidemia (principal); I10 Essential (primary) hypertension; E11.65 Type 2 diabetes mellitus with hyperglycemia

== ENCOUNTER 2025-03-24 10:32 | Outpatient (AMB) | payer OTHER, SELFPAY ==
--- NOTE | 2025-03-24 10:35 | MHC.OFFVIS ---
Intake Visit Reasons: OV - Right Shoulder MRI Review Intake Note: Doni is a 68 year old left hand dominant male who presents today for a follow up/MRI review of his right shoulder, s/p Right RTC 03/26/23. This was a large repair, and there is concern for re-injury. Impression: Rotator cuff repair. No recurrent complete tears of supraspinatus and infraspinatus. Supraspinatus and subscapularis tendinopathy with partial tears. Biceps tendinopathy with partial tear and subluxation, similar to the prior study. Allergies No Known Allergies (No Known Allergies*) Allergy (Verified 03/15/25 09:43) HPI HPI OV - Right Shoulder MRI Review: Details: Doni is a 68 year old left hand dominant male who presents today for a follow up/MRI review of his right shoulder, s/p Right RTC 03/26/23. This was a large repair, and there is concern for re-injury. He has improved since last visit and now with no pain and can do 80-90 of his nl activities. Feels weakness however. . [facility] Medical History Diabetes mellitus with hyperglycemia, without long-term current use of insulin Benign positional vertigo History of gout Essential hypertension Osteoarthritis involving multiple joints on both sides of body Mixed dyslipidemia Surgical History S/P right rotator cuff repair (03/26/23) History of carpal tunnel release Hx of total knee replacement Family History Father No problems noted. Mother No problems noted. Sister Cervical cancer Uterine cancer Hypothyroidism Social History Housing: House Alcohol intake: current Patient Tobacco Use Status: Never used Tobacco e-Cigarette/Vaping Use: Never Used service: No Current occupational status: employed Current occupation: [employer], left hand dominant Cognitive needs: No Hearing needs: No Vision needs: Yes Physical Exam Exam Exam: scapular recruitment and proximal humeral migration with abduction 4-/5 in isolated supraspiantus testing Results Reviewed Results Reviewed: I personally reviewed the MR images. Impression: Rotator cuff repair. No recurrent complete tears of supraspinatus and infraspinatus. Supraspinatus and subscapularis tendinopathy with partial tears. Biceps tendinopathy with partial tear and subluxation, similar to the prior study Assessment & Plan Assessment & Plan (1) S/P right rotator cuff repair: Onset Date: 03/26/23 Code(s): Z98.890 - Other specified postprocedural states Category: Surgical Plan: Large RTC repair in setting of chronic tearing. Now with weaknss after doing well for 2 years. Improving and no intervention warranted at this time. F/u 2 months. Avoid heavy lifting. Coding Level of Care Code Est Pt Level 3 (12339) Diagnoses S/P right rotator cuff repair Z98.890
== END 2025-03-24 10:58 | disposition home or self-care (01) ==
LOC: HO.HOS 10:32
PROVIDERS: PCP Internal Medicine; Visit Provider Orthopaedic Surgery
DX: Z47.89 Encounter for other orthopedic aftercare (principal); S46.011D Strain of muscle(s) and tendon(s) of the rotator cuff of right shoulder, subsequent encounter
CPT/HCPCS: 99213

== ENCOUNTER 2025-04-20 07:23 | Outpatient (REF) | payer OTHER, SELFPAY ==
[2025-04-20 11:02] LABS: Hematocrit 51.9 % (42.0-52.0); Hemoglobin 17.5 g/dl (14.0-18.0); Mean Corpuscular HGB Conc 33.7 g/dl (31.0-36.0); Mean Corpuscular Hemoglobin 28.9 pg (27.0-33.0); Mean Corpuscular Volume 85.6 fL (80.0-98.0); NRBC Abs Auto 0.000 X10*3/uL (0.0-0.012); NRBC Pct Auto 0.0 /100WBC (0.0-0.2); Platelet Count 141 X10*3/uL (160-400); Red Blood Count 6.06 X10*6/uL (4.60-5.80); White Blood Count 5.9 X10*3/uL (4.8-10.8)
[2025-04-20 11:56] LABS: Prostate Specific Antigen 0.83 ng/mL (<0.05-4.0)
== END 2025-04-20 07:24 | disposition home or self-care (01) ==
LOC: HO.HMGCLDS 07:23
PROVIDERS: PCP Internal Medicine; Visit Provider Urology
DX: Z12.5 Encounter for screening for malignant neoplasm of prostate (principal); E29.1 Testicular hypofunction
CPT/HCPCS: 36415; 84153; 84403; 85027

== ENCOUNTER 2025-05-04 10:18 | Outpatient (AMB) | payer OTHER, SELFPAY ==
--- NOTE | 2025-05-04 10:29 | MHC.OFFVIS ---
Intake Visit Reasons: 8M PSA/Testo/CBC(set) Intake Note: Reason for Visit: PSA/Testosterone Results Urology Meds: Testosterone, Tadalafil Blood Thinners: None Labs: PSA- 0.83 Testosterone- 413 (04/20/2025) A1C- 7.2 BUN- 13 Creatinine: 0.96 (03/10/2025) Imaging: None Last PVR: None Patient denies any concerns Television Schedule Coordinator Required: No Accompanied by: Self / Same As Patient Allergies No Known Allergies (No Known Allergies*) Allergy (Verified 05/04/25 10:33) HPI Comments Details: Doni is a very pleasant male. He is seen for the following urologic conditions - erectile dysfunction in setting of diabetes - hypogonadism Lab work stable Primary issue is erectile dysfunction Good response to maximize ED medications with 10 mg daily tadalafil and 20 mg p.r.n. demand Discussed use of vacuum pump for erections Information provided 6 month follow-up Hypogonadism: He presents today for further evaluation and followup of his hypogonadism - Current therapy 0.5 cc subcutaneous weekly Fri injection/Lab Friday Initial symptoms include erectile dysfunction Yes decreased libido Yes The onset of symptoms has been gradual. Associate conditions include obstructive sleep apnea No CAD No diabetes Yes dyslipidemia Yes hypertension Yes Laboratory results 11/25 , baseline T 200 Free T 44 12/25 T 207, FSH 8.6, 02/25 T 130, 05/27 T 175, 09/27 T 387, PSA 0.6, 04/29 T 350 P 0.5, 11/28 T 300 0.46 48, 04/30 396 0.8, 12/29 327 0.58 47, 01/30 470 0.8, 10/31 460 0.75 49 HBA1c 8.1, 05/03 413 0.83 51.9 - HBA1c - 08/29 7.2% Therapeutic plan 6 month follow-up Erectile dysfunction: Increased to 10 mg daily with a escalating dose on demand Symptoms have been present for/since gradual since 2016. Current treatment includes 10 mg daily Cialis plus Cialis 20 mg Treatment side effects include none. Prior therapies include oral medications. At this time he experiences erections are partial and adequate for vaginal penetration, that undergo rapid detumesence after penetration, BARI 8-11 Moderate ED. Nocturnal erections do not occur. Currently they are in a stable relationship. Associated problems hypertension Yes diabetes Yes dyslipidemia Yes Overall he is not satisfied with the current management. Therapeutic plan includes Escalating oral doses PFSH Medical History Diabetes mellitus with hyperglycemia, without long-term current use of insulin Benign positional vertigo History of gout Essential hypertension Osteoarthritis involving multiple joints on both sides of body Mixed dyslipidemia Surgical History S/P right rotator cuff repair (03/26/23) History of carpal tunnel release Hx of total knee replacement Family History Father No problems noted. Mother No problems noted. Sister Cervical cancer Uterine cancer Hypothyroidism Social History Housing: House Alcohol intake: current Patient Tobacco Use Status: Never used Tobacco e-Cigarette/Vaping Use: Never Used service: No Current occupational status: employed Current occupation: [employer], left hand dominant Cognitive needs: No Hearing needs: No Vision needs: Yes Review of Systems Const Denies chills and Denies fever(s) Card Reports no additional complaints and Denies syncope Resp Denies cough GI Denies abdominal pain and Denies heartburn Reports as per HPI and Denies change in libido Neuro Denies syncope Psych Denies change in libido Endo Denies change in libido Physical Exam Const General: cooperative, healthy appearing, comfortable and no acute distress Orientation/consciousness: patient oriented x3 HEENT Face and sinus: Yes normal facial exam Mouth: moist mucous membranes Neck Neck: Yes normal visual inspection, Yes full ROM and Yes trachea midline Chest Chest palpation & inspection: normal inspection of the chest Resp Effort & Inspection: normal respiratory effort, able to speak in complete sentences and no respiratory distress GI Inspection: Yes normal to inspection Back/Spine/Pelvis Cervical Spine: normal cervical lordosis Thoracic/Lumbar Spine: thoracic and lumbar spine normal to inspection Skin General skin exam: no rashes or lesions noted Neuro General: patient oriented x3, gait normal, tone normal and moves all extremities Extrem General: Yes normal to inspection and Yes capillary refill normal Assessment & Plan Assessment & Plan (1) Erectile dysfunction associated with type 2 diabetes mellitus: Code(s): E11.69 - Type 2 diabetes mellitus with other specified complication; N52.1 - Erectile dysfunction due to diseases classified elsewhere Category: Medical (2) Hypogonadism in male: Code(s): E29.1 - Testicular hypofunction Category: Medical Plan Prescription refill Six-month follow-up Orders: Orders Testosterone, Total 5 Months E29.1 - Testicular hypofunction Hematocrit 5 Months E29.1 - Testicular hypofunction Prostate Specific Antigen 5 Months E29.1 - Testicular hypofunction Medications: Refilled tadalafil Once daily 10 mg PO DAILY 90 tabs 1RF 90 days E29.1 - Testicular hypofunction testosterone cypionate (Depo-Testosterone) 100 mg (0.5 mL) subcut QWEEK 2 mL 5RF 4 weeks E29.1 - Testicular hypofunction Patient Instructions: This note is constructed using voice recognition software. While every effort has been made to ensure accuracy design maintenance engineer errors may have been included. Imaging studies, laboratory and physical exam results were discussed and reviewed in detail. No major barriers to patient understanding were identified. An opportunity to ask questions regarding the treatment plan was provided. All questions were answered. The patient expressed understanding and agreement with the above treatment plan. The patient is aware they should contact our office by phone for worsening of their current condition or the appearance of new urologic symptoms. Compliance is encouraged with any medications and followup testing that is ordered. It is a privilege to participate in the urologic care of your patient. If you have any questions or concerns regarding treatment for the above conditions, or other urologic issues, please do not hesitate to contact me. The office telephone contact is [phone]. Sincerely, Dr Marek Lopez MD, [facility] - Urology Compassionate Specialist Care for the Genitourinary System Coding Level of Care Code Est Pt Level 3 (65850) Complex visit Add On G2211 Diagnoses Erectile dysfunction associated with type 2 diabetes mellitus E11.69; N52.1 Hypogonadism in male E29.1
== END 2025-05-04 11:01 | disposition home or self-care (01) ==
LOC: HO.HUSH 10:19
PROVIDERS: PCP Internal Medicine; Visit Provider Urology
DX: E11.69 Type 2 diabetes mellitus with other specified complication (principal); N52.1 Erectile dysfunction due to diseases classified elsewhere; E29.1 Testicular hypofunction
CPT/HCPCS: 99213; G2211